=== PATIENT | female | born 1955 | race Two or more races ===

== ENCOUNTER 2018-03-14 16:57 | Inpatient (IN) | payer MEDICARE, MEDICAID ==
[2018-03-14 17:27] LABS: % BASOPHILS 0.8 % (0.0-2.0); % EOSINOPHILS 0.9 % (0.0-5.0); % LYMPHOCYTES 28.5 % (20.0-50.0); % MONOCYTES 8.3 % (2.0-10.0); % NEUTROPHILS 61.5 % (40.0-80.0); BASOPHILE ABSOLUTE 0.1 Th/cumm (0-0.2); EOSINOPHILE ABSOLUTE 0.1 Th/cmm (0.1-0.4); HEMATOCRIT 39.1 % (41.0-60); LYMPHOCYTE ABSOLUTE 2.1 Th/cmm (1.5-3.0); MEAN CORPUSCULAR HEMOGLOBIN 28.9 pg (27.0-31.0); MEAN CORPUSCULAR HGB CONC 33.3 pg (28.0-36.0); MEAN PLATELET VOLUME 7.7 fl; MONOCYTE ABSOLUTE 0.6 Th/cmm (0.3-1.0); NEUTROPHILE ABSOLUTE 4.3 Th/cmm (1.8-8.0); PLATELET COUNT 275 Th/cmm (150-400); RED CELL DISTRIBUTION WIDTH 12.9 % (11.5-20.0); WHITE BLOOD COUNT 7.2 Th/cmm (4.8-10.8)
[2018-03-14 17:46] LABS: ALB/GLOB RATIO 1.5 (1.0-1.8); ALBUMIN 4.4 gm/dL (3.7-5.3); ALKALINE PHOSPHATASE 55 U/L (34-104); ANION GAP 8.9 (7.0-16.0); BILIRUBIN,TOTAL 0.4 mg/dL (0.3-1.0); BUN - UREA NITROGEN 23 mg/dL (7-25); CALCIUM SERUM 9.7 mg/dL (8.6-10.3); CARBON DIOXIDE 28.8 mEq/L (21.0-31.0); CHLORIDE 106 mEq/L (98-107); CREATININE - SERUM 0.7 mg/dL (0.6-1.2); GFR AFRICAN-AMERICAN > 60.0 ml/min (>90); GFR NON AFRICAN-AMERICAN > 60.0 ml/min; GLUCOSE 103 mg/dL (70-105); PHOSPHOROUS 3.4 mg/dL (2.5-5.0); POTASSIUM SERUM 3.7 mEq/L (3.5-5.1); SGOT 12 U/L (13-39); SGPT/ALT 8 U/L (7-52); SODIUM SERUM 140 mEq/L (136-145); TOTAL PROTEIN,SERUM 7.3 gm/dL (6.0-8.3)
--- NOTE | 2018-03-14 18:20 | ED Physician Chart ---
ED Chief Complaint/HPI - Patient Information Date Seen:: 03/14/18 Time Seen:: 17:00 Allergies:: Allergies Allergy/AdvReac Type Severity Reaction Status Date / Time Sulfa (Sulfonamide Allergy Verified 03/14/18 16:59 Antibiotics) Vitals:: Vital Signs - 8 hr 03/14/18 17:00 Temp 99.3 F HR 84 RR 18 BP 125/64 O2 Sat % 94 ED Physical Exam - Physical Examination General/Constitutional: Awake, Well-developed, well-nourished, Non-toxic appearing, Ambulatory Other Gen/Cons comments:: Patient is paranoid. She is tracking the paramedics with her eyes. Head: Atraumatic Eyes: Lids, conjuctiva normal, PERRL, EOMI Skin: Nl inspection, No rash, No skin lesions, No ecchymosis, Well hydrated, No lymphadenopathy ENMT: External ears, nose nl, Nasal exam nl, Lips, teeth, gums nl Neck: Nontender, Full ROM w/o pain, No JVD, No nuchal rigidity, No bruit, No mass, No stridor Respiratory: Nl effort/Exclusion, Clear to Auscultation, No Wheeze/Rhonchi/Rales Cardio Vascular: RRR, No murmur, gallop, rubs, NL S1 S2 GI: No tenderness/rebounding/guarding, No organomegaly, No hernia, Normal BS's, Nondistended, No mass/bruits, No McBurney tenderness Other Extremities comments:: 1+ edema Other Neuro/Psych comments:: Patient appears paranoid. She is tracking paramedics with her eyes. ED Labs/Radiology/EKG Results - Lab Results Results: Laboratory Tests 03/14/18 03/14/18 17:20 17:20 WBC 7.2 RBC 4.50 Hgb 13.0 Hct 39.1 L MCV 87.0 MCH 28.9 MCHC Differential 33.3 RDW 12.9 Plt Count 275 MPV 7.7 Neutrophils % 61.5 Lymphocytes % 28.5 Monocytes % 8.3 Eosinophils % 0.9 Basophils % 0.8 Sodium 140 Potassium 3.7 Chloride 106 Carbon Dioxide 28.8 Anion Gap 8.9 BUN 23 Creatinine 0.7 Est GFR ( Amer) > 60.0 Est GFR (Non-Af Amer) > 60.0 BUN/Creatinine Ratio 32.9 Glucose 103 Calcium 9.7 Phosphorus 3.4 Magnesium 2.0 Total Bilirubin 0.4 AST 12 L ALT 8 Alkaline Phosphatase 55 Total Protein 7.3 Albumin 4.4 Globulin 2.9 Albumin/Globulin Ratio 1.5 ED Septic Shock - . Is Septic Shock (SBP<90, OR Lactate>4 mmol\L) present?: No - <6hrs of presentation: Vital Signs: Vital Signs - 8 hr 03/14/18 17:00 Temp 99.3 F HR 84 RR 18 BP 125/64 O2 Sat % 94 ED Reassessment (Disposition) - Reassessment Reassessment:: PATIENT IS CLEARED FROM A MEDICAL STANDPOINT FOR THIS ADMIT. SHE REFUSES TO GIVE US URINE AND REFUSES TO URINATE FOR US. Reassessment Condition:: Unchanged - Diagnosis Diagnosis:: Paranoid Schizophrenia, Anxiety Disorder, Unspecified Dementia with Behavioral Disturbance, Major Depressive Disorder, single episode.a - Patient Disposition Discharge/Transfer:: Acute Care w/in this hosp (PATIENT IS CLEARED FROM A MEDICAL STANDPOINT FOR THIS ADMIT. SHE REFUSES TO GIVE US URINE AND REFUSES TO URINATE FOR US.) ED Discharge Plan - Patient Disposition
[2018-03-14 22:16] VITALS: BP 137/80
[2018-03-15] MEDS ORDERED: Maalox 30 mL Cup PO PRN (07:19)
[2018-03-15] MEDS: Atorvastatin Calcium 10 MG TAB PO SCH (20:57)
--- NOTE | 2018-03-16 00:05 | Psychosocial Evaluation ---
DATE OF SERVICE: 03/15/2018 JUSTIFICATION FOR HOSPITALIZATION: The patient currently in the hospital, striking out, agitated, disruptive behaviors. HISTORY OF PRESENT ILLNESS: A 62-year-old female, refusing to speak with me apparently aggressive, striking out behaviors, agitated behaviors, not lg for safety. The patient does not want to talk to me, refusing to wake up to be highly labile, concerns for grave disability. Concerns for ability to care for her basic needs. History of schizophrenia per documentation, dementia, resistive to care. PAST PSYCHIATRIC HISTORY: As noted. FAMILY HISTORY: Noncontributory. SOCIAL HISTORY: The patient coming from [facility]. It is unclear what her family involvement is at this time. MEDICATIONS: Noted. MENTAL STATUS EXAMINATION: Stated age. Fair eye contact. Speech, not talking to me, refusing interview, sleeping, but arousable. Mood, unable to assess. Affect, flat. Thought processes are hard to assess. Thought content are hard to assess, concerns for safety given her striking out behaviors, poor impulse control. Insight and judgment seemed diminished. PROVISIONAL DIAGNOSES: Schizophrenia; mood, unspecified; anxiety, unspecified. Under medical, please see full H and P. ESTIMATED LENGTH OF STAY: 5-7 days. ASSESSMENT: The patient requiring hospitalization, aggressive, agitated, history of mental illness. PLAN: Continue medications. Medications were noted. TREATMENT PLAN: Includes group as well as milieu therapy. CONDITIONS FOR DISCHARGE: Improved mood, improved affect, better control . JOB# [id number]
--- NOTE | 2018-03-16 09:53 | History & Physical ---
ADMIT DATE: 03/14/2018 HISTORY OF PRESENT ILLNESS: The patient is a 62-year-old female with dementia, psychosis, and hyperlipidemia ____ admitted to [facility] under Dr. Veras's service. The patient denies any chest pain, shortness of breath, nausea, vomiting, fevers, or chills. PAST MEDICAL HISTORY: Significant for hyperlipidemia, degenerative joint disease, dementia, and psychosis. PAST SURGICAL HISTORY: No recent surgery. ALLERGIES: SULFA. SOCIAL HISTORY: No smoking, no alcohol, and no drug. FAMILY HISTORY: Noncontributory. REVIEW OF SYSTEMS: RENAL SYSTEM: No history of chronic renal disorder. CARDIOVASCULAR SYSTEM: No coronary artery disease. ENDOCRINE SYSTEM: No diabetes or thyroid problem. NEUROLOGIC SYSTEM: No seizure disorder. MUSCULOSKELETAL SYSTEM: No muscular dystrophy. HEMATOLOGIC SYSTEM: No bleeding tendencies. RESPIRATORY SYSTEM: No asthma. GENITOURINARY: No dysuria or hematuria. PHYSICAL EXAMINATION: GENERAL: The patient is awake. VITAL SIGNS: Temperature is 98.6, heart rate 86, and blood pressure 132/80. HEENT: Normocephalic. Pupils reactive to light and accommodation. Sclerae clear. NECK: Supple. Negative for lymphadenopathy, JVD, or bruits. CHEST: Entry of air bilaterally normal. No rhonchi or wheezing. HEART: S1 and S2 normal. ABDOMEN: Soft, bowel sounds positive. EXTREMITIES: No edema. NEUROLOGIC: She is awake, alert, and not fully oriented. LABORATORY DATA: White cell count 7.2, hemoglobin 13, hematocrit 39.1, and platelets 276. Sodium 140, potassium 3.7, BUN 23, and creatinine 0.7. ASSESSMENT: 1. Hyperlipidemia. 2. Degenerative joint disease. 3. Dementia. 4. Psychosis. PLAN: The patient admitted to the hospital under Dr. Veras's service. Her medical problems addressed during hospitalization are dementia and psychosis. Medical problem to be addressed at discharge is degenerative joint disease. The patient is medically stable for activity. Thank you Dr. Veras for asking me to see your patient. JOB# [id number]
--- NOTE | 2018-03-16 16:10 | Internal Medicine Prog Note ---
Internal Medicine Subjective - Subjective Service Date: 03/16/18 Patient seen and examined:: with staff Patient is:: awake, verbal, in bed Per staff patient has:: no adverse event Internal Medicine Objective - Results Result Diagrams: 03/14/18 17:20 03/14/18 17:20 Recent Labs: Laboratory Last Values WBC 7.2 Th/cmm (4.8-10.8) 03/14/18 17:20 RBC 4.50 Mil/cmm (3.80-5.10) 03/14/18 17:20 Hgb 13.0 gm/dL (12-16) 03/14/18 17:20 Hct 39.1 % (41.0-60) L 03/14/18 17:20 MCV 87.0 fl (81-100) 03/14/18 17:20 MCH 28.9 pg (27.0-31.0) 03/14/18 17:20 MCHC Differential 33.3 pg (28.0-36.0) 03/14/18 17:20 RDW 12.9 % (11.5-20.0) 03/14/18 17:20 Plt Count 275 Th/cmm (150-400) 03/14/18 17:20 MPV 7.7 fl 03/14/18 17:20 Neutrophils % 61.5 % (40.0-80.0) 03/14/18 17:20 Lymphocytes % 28.5 % (20.0-50.0) 03/14/18 17:20 Monocytes % 8.3 % (2.0-10.0) 03/14/18 17:20 Eosinophils % 0.9 % (0.0-5.0) 03/14/18 17:20 Basophils % 0.8 % (0.0-2.0) 03/14/18 17:20 Sodium 140 mEq/L (136-145) 03/14/18 17:20 Potassium 3.7 mEq/L (3.5-5.1) 03/14/18 17:20 Chloride 106 mEq/L (98-107) 03/14/18 17:20 Carbon Dioxide 28.8 mEq/L (21.0-31.0) 03/14/18 17:20 Anion Gap 8.9 (7.0-16.0) 03/14/18 17:20 BUN 23 mg/dL (7-25) 03/14/18 17:20 Creatinine 0.7 mg/dL (0.6-1.2) 03/14/18 17:20 Est GFR ( Amer) > 60.0 ml/min (>90) 03/14/18 17:20 Est GFR (Non-Af Amer) > 60.0 ml/min 03/14/18 17:20 BUN/Creatinine Ratio 32.9 03/14/18 17:20 Glucose 103 mg/dL (70-105) 03/14/18 17:20 Calcium 9.7 mg/dL (8.6-10.3) 03/14/18 17:20 Phosphorus 3.4 mg/dL (2.5-5.0) 03/14/18 17:20 Magnesium 2.0 mg/dL (1.9-2.7) 03/14/18 17:20 Total Bilirubin 0.4 mg/dL (0.3-1.0) 03/14/18 17:20 AST 12 U/L (13-39) L 03/14/18 17:20 ALT 8 U/L (7-52) 03/14/18 17:20 Alkaline Phosphatase 55 U/L (34-104) 03/14/18 17:20 Total Protein 7.3 gm/dL (6.0-8.3) 03/14/18 17:20 Albumin 4.4 gm/dL (3.7-5.3) 03/14/18 17:20 Globulin 2.9 gm/dL 03/14/18 17:20 Albumin/Globulin Ratio 1.5 (1.0-1.8) 03/14/18 17:20 TSH 0.64 uIU/ml (0.34-5.60) 03/14/18 17:20 - Physical Exam Vitals and I&O: Vital Signs Temp 97.9 F 03/16/18 15:37 Pulse 72 03/16/18 15:37 Resp 18 03/16/18 15:37 BP 98/65 03/16/18 15:37 Pulse Ox 96 03/16/18 15:37 Intake & Output 03/15/18 03/16/18 03/16/18 18:59 06:59 18:59 Intake Total 650 Balance 650 Intake: Oral 650 Other: # Voids 3 # Bowel Movements 0 Stool Characteristics Soft Soft Active Medications: Current Medications Al Hydrox/Mg Hydrox/Simethicone (Maalox) 30 ml PO Q6H PRN PRN Reason: GI DISTRESS Stop: 05/14/18 07:18 Atorvastatin Calcium (Lipitor) 10 mg PO HS [facility]; Protocol Stop: 05/14/18 20:59 Last Admin: 03/15/18 20:57 Dose: 10 mg Divalproex Sodium (Depakote Dr) 500 mg PO HS [facility]; Protocol Stop: 05/15/18 20:59 Docusate Sodium (Colace) 250 mg PO DAILY [facility] Stop: 05/14/18 08:59 Last Admin: 03/16/18 09:24 Dose: 250 mg Lorazepam (Ativan) 1 mg PO BID [facility]; Protocol Stop: 05/14/18 08:59 Last Admin: 03/16/18 09:24 Dose: 1 mg Olanzapine (Zyprexa) 15 mg PO HS [facility]; Protocol Stop: 05/14/18 20:59 Last Admin: 03/15/18 20:57 Dose: 15 mg Trazodone HCl (Desyrel) 50 mg PO HS [facility]; Protocol Stop: 05/13/18 20:59 Last Admin: 03/15/18 20:57 Dose: 50 mg General: demented HEENT: NC/AT, PERRLA, EOMI, anicteric sclerae, throat clear Neck: Supple, No JVD, No thyromegaly, +2 carotid pulse wo bruit, No LAD Lungs: CTAB Cardiovascular: Normal S1, Normal S2, without murmur Abdomen: soft, non-tender, non-distended Extremities: clear Neurological: no change Internal Medicine Assmt/Plan - Assessment Assessment: 1.HYPERLIPIDEMIA. 2.DJD. 3.DEMENTIA. 4.PSYCHOSIS. - Plan Plan: CONTINUE ON CURRENT MEDICATION AND DIET.
--- NOTE | 2018-03-16 17:15 | Progress Notes ---
DATE: 03/16/2018 SUBJECTIVE: I met with the patient in the hospital, noted to have history of striking out behaviors, aggressive behaviors. On [id number], the patient , does not want to talk to me. She is sleeping. She is arousable, but refusing to speak with me. Poorly oriented per staff, paranoid, internally preoccupied, mostly stays to herself. At times noted to be pleasant towards staff, but other times noted to be angry, verbal outbursts requiring emergency medications, staring into space, seems to be preoccupied by her own thoughts. Medications were noted including doses and frequencies. ASSESSMENT: The patient remains symptomatic, highly impulsive, unpredictable, requiring emergency medications over the past 24 hours given her ongoing symptoms that are ongoing and overt safety concerns. JOB# [id number]
[2018-03-16] MEDS: Atorvastatin Calcium 10 MG TAB PO SCH (20:55)
--- NOTE | 2018-03-17 11:29 | Progress Notes ---
DATE: 03/17/2018 SUBJECTIVE: The patient in the hospital, resting quietly. Staff noting she is selectively mute, also selective with medications. Notes that she takes medications as she gets cigarettes. The patient with sudden outbursts of anger, irritability, unpredictable, impulsive, refusing to speak with me, not saying anything. She is awake. Her eyes are open, but she is refusing to talk with me. Staff noting other times she is very pleasant. The patient sometimes requiring emergency medications due to anxiety, high impulsivity, easily provoked. ASSESSMENT: The patient remains symptomatic, refusing to speak with me, selective with medications, conditional with medications and treatment based on how much she can smoke. PLAN: We will continue to monitor. Given her ongoing symptoms, she is not safe for discharge. Still with acting out behaviors, unruly behaviors. JOB# [id number]
--- NOTE | 2018-03-17 18:06 | Internal Medicine Prog Note ---
Internal Medicine Subjective - Subjective Service Date: 03/17/18 Patient seen and examined:: with staff Patient is:: awake, verbal, in bed Per staff patient has:: no adverse event Internal Medicine Objective - Results Result Diagrams: 03/14/18 17:20 03/14/18 17:20 Recent Labs: Laboratory Last Values WBC 7.2 Th/cmm (4.8-10.8) 03/14/18 17:20 RBC 4.50 Mil/cmm (3.80-5.10) 03/14/18 17:20 Hgb 13.0 gm/dL (12-16) 03/14/18 17:20 Hct 39.1 % (41.0-60) L 03/14/18 17:20 MCV 87.0 fl (81-100) 03/14/18 17:20 MCH 28.9 pg (27.0-31.0) 03/14/18 17:20 MCHC Differential 33.3 pg (28.0-36.0) 03/14/18 17:20 RDW 12.9 % (11.5-20.0) 03/14/18 17:20 Plt Count 275 Th/cmm (150-400) 03/14/18 17:20 MPV 7.7 fl 03/14/18 17:20 Neutrophils % 61.5 % (40.0-80.0) 03/14/18 17:20 Lymphocytes % 28.5 % (20.0-50.0) 03/14/18 17:20 Monocytes % 8.3 % (2.0-10.0) 03/14/18 17:20 Eosinophils % 0.9 % (0.0-5.0) 03/14/18 17:20 Basophils % 0.8 % (0.0-2.0) 03/14/18 17:20 Sodium 140 mEq/L (136-145) 03/14/18 17:20 Potassium 3.7 mEq/L (3.5-5.1) 03/14/18 17:20 Chloride 106 mEq/L (98-107) 03/14/18 17:20 Carbon Dioxide 28.8 mEq/L (21.0-31.0) 03/14/18 17:20 Anion Gap 8.9 (7.0-16.0) 03/14/18 17:20 BUN 23 mg/dL (7-25) 03/14/18 17:20 Creatinine 0.7 mg/dL (0.6-1.2) 03/14/18 17:20 Est GFR ( Amer) > 60.0 ml/min (>90) 03/14/18 17:20 Est GFR (Non-Af Amer) > 60.0 ml/min 03/14/18 17:20 BUN/Creatinine Ratio 32.9 03/14/18 17:20 Glucose 103 mg/dL (70-105) 03/14/18 17:20 Calcium 9.7 mg/dL (8.6-10.3) 03/14/18 17:20 Phosphorus 3.4 mg/dL (2.5-5.0) 03/14/18 17:20 Magnesium 2.0 mg/dL (1.9-2.7) 03/14/18 17:20 Total Bilirubin 0.4 mg/dL (0.3-1.0) 03/14/18 17:20 AST 12 U/L (13-39) L 03/14/18 17:20 ALT 8 U/L (7-52) 03/14/18 17:20 Alkaline Phosphatase 55 U/L (34-104) 03/14/18 17:20 Total Protein 7.3 gm/dL (6.0-8.3) 03/14/18 17:20 Albumin 4.4 gm/dL (3.7-5.3) 03/14/18 17:20 Globulin 2.9 gm/dL 03/14/18 17:20 Albumin/Globulin Ratio 1.5 (1.0-1.8) 03/14/18 17:20 TSH 0.64 uIU/ml (0.34-5.60) 03/14/18 17:20 - Physical Exam Vitals and I&O: Vital Signs Temp 97.8 F 03/17/18 15:46 Pulse 67 03/17/18 15:46 Resp 18 03/17/18 15:46 BP 103/63 03/17/18 15:46 Pulse Ox 97 03/17/18 15:46 Intake & Output 03/16/18 03/17/18 03/17/18 18:59 06:59 18:59 Intake Total 600 300 Balance 600 300 Intake: Oral 600 300 Other: # Voids 2 0 # Bowel Movements 0 Stool Characteristics Soft Soft Soft Active Medications: Current Medications Al Hydrox/Mg Hydrox/Simethicone (Maalox) 30 ml PO Q6H PRN PRN Reason: GI DISTRESS Stop: 05/14/18 07:18 Atorvastatin Calcium (Lipitor) 10 mg PO HS [facility]; Protocol Stop: 05/14/18 20:59 Last Admin: 03/16/18 20:55 Dose: Not Given Divalproex Sodium (Depakote Dr) 500 mg PO HS [facility]; Protocol Stop: 05/15/18 20:59 Last Admin: 03/16/18 20:52 Dose: Not Given Docusate Sodium (Colace) 250 mg PO DAILY [facility] Stop: 05/14/18 08:59 Last Admin: 03/17/18 10:56 Dose: Not Given Lorazepam (Ativan) 1 mg PO BID [facility]; Protocol Stop: 05/14/18 08:59 Last Admin: 03/17/18 10:56 Dose: Not Given Olanzapine (Zyprexa) 15 mg PO HS [facility]; Protocol Stop: 05/14/18 20:59 Last Admin: 03/16/18 20:51 Dose: Not Given Trazodone HCl (Desyrel) 50 mg PO HS [facility]; Protocol Stop: 05/13/18 20:59 Last Admin: 03/16/18 20:51 Dose: 50 mg General: demented HEENT: NC/AT, PERRLA, EOMI, anicteric sclerae, throat clear Neck: Supple, No JVD, No thyromegaly, +2 carotid pulse wo bruit, No LAD Lungs: CTAB Cardiovascular: Normal S1, Normal S2, without murmur Abdomen: soft, non-tender, non-distended Extremities: clear Neurological: no change Internal Medicine Assmt/Plan - Assessment Assessment: 1.HYPERLIPIDEMIA. 2.DJD. 3.DEMENTIA. 4.PSYCHOSIS. - Plan Plan: CONTINUE ON CURRENT MEDICATION AND DIET.
[2018-03-17] MEDS: Atorvastatin Calcium 10 MG TAB PO SCH (21:05)
--- NOTE | 2018-03-17 22:09 | Progress Notes ---
DATE: 03/17/2018 FOLLOW-UP PROGRESS NOTE Actually, this patient was seen earlier today by Dr. Hammond; however, the staff asked me to evaluate her because her hold will today. When I tried to talk to her, she was nonverbal, she was in bed, disruptive, is extremely psychotic. Apparently, she does take her medication she gets. She apparently also refused to talk with Dr. Hammond earlier today. She is highly unpredictable, impulsive, irritable, refusing to talk as described. When I talked to her with the staff, she was very much resistant to answer any questions. The staff reported sometimes she has been much more easy to talk to and she has been needing emergency medication. So, I will be extending the hold on the ground of grave disability as she is unable to make safe plans for self-care. Dr. Hammond will continue to work with the patient in group therapy and milieu therapy, adjust the medication as needed. JOB# [id number]
[2018-03-18] MEDS: Atorvastatin Calcium 10 MG TAB PO SCH (21:25)
--- NOTE | 2018-03-18 21:26 | Internal Medicine Prog Note ---
Internal Medicine Subjective - Subjective Service Date: 03/18/18 Patient seen and examined:: with staff Patient is:: awake, verbal, in bed Per staff patient has:: no adverse event Internal Medicine Objective - Results Result Diagrams: 03/14/18 17:20 03/14/18 17:20 Recent Labs: Laboratory Last Values WBC 7.2 Th/cmm (4.8-10.8) 03/14/18 17:20 RBC 4.50 Mil/cmm (3.80-5.10) 03/14/18 17:20 Hgb 13.0 gm/dL (12-16) 03/14/18 17:20 Hct 39.1 % (41.0-60) L 03/14/18 17:20 MCV 87.0 fl (81-100) 03/14/18 17:20 MCH 28.9 pg (27.0-31.0) 03/14/18 17:20 MCHC Differential 33.3 pg (28.0-36.0) 03/14/18 17:20 RDW 12.9 % (11.5-20.0) 03/14/18 17:20 Plt Count 275 Th/cmm (150-400) 03/14/18 17:20 MPV 7.7 fl 03/14/18 17:20 Neutrophils % 61.5 % (40.0-80.0) 03/14/18 17:20 Lymphocytes % 28.5 % (20.0-50.0) 03/14/18 17:20 Monocytes % 8.3 % (2.0-10.0) 03/14/18 17:20 Eosinophils % 0.9 % (0.0-5.0) 03/14/18 17:20 Basophils % 0.8 % (0.0-2.0) 03/14/18 17:20 Sodium 140 mEq/L (136-145) 03/14/18 17:20 Potassium 3.7 mEq/L (3.5-5.1) 03/14/18 17:20 Chloride 106 mEq/L (98-107) 03/14/18 17:20 Carbon Dioxide 28.8 mEq/L (21.0-31.0) 03/14/18 17:20 Anion Gap 8.9 (7.0-16.0) 03/14/18 17:20 BUN 23 mg/dL (7-25) 03/14/18 17:20 Creatinine 0.7 mg/dL (0.6-1.2) 03/14/18 17:20 Est GFR ( Amer) > 60.0 ml/min (>90) 03/14/18 17:20 Est GFR (Non-Af Amer) > 60.0 ml/min 03/14/18 17:20 BUN/Creatinine Ratio 32.9 03/14/18 17:20 Glucose 103 mg/dL (70-105) 03/14/18 17:20 Calcium 9.7 mg/dL (8.6-10.3) 03/14/18 17:20 Phosphorus 3.4 mg/dL (2.5-5.0) 03/14/18 17:20 Magnesium 2.0 mg/dL (1.9-2.7) 03/14/18 17:20 Total Bilirubin 0.4 mg/dL (0.3-1.0) 03/14/18 17:20 AST 12 U/L (13-39) L 03/14/18 17:20 ALT 8 U/L (7-52) 03/14/18 17:20 Alkaline Phosphatase 55 U/L (34-104) 03/14/18 17:20 Total Protein 7.3 gm/dL (6.0-8.3) 03/14/18 17:20 Albumin 4.4 gm/dL (3.7-5.3) 03/14/18 17:20 Globulin 2.9 gm/dL 03/14/18 17:20 Albumin/Globulin Ratio 1.5 (1.0-1.8) 03/14/18 17:20 TSH 0.64 uIU/ml (0.34-5.60) 03/14/18 17:20 - Physical Exam Vitals and I&O: Vital Signs Temp 97.6 F 03/18/18 14:00 Pulse 62 03/18/18 14:00 Resp 20 03/18/18 14:00 BP 111/69 03/18/18 14:00 Pulse Ox 97 03/18/18 14:00 Intake & Output 03/18/18 03/18/18 03/19/18 06:59 18:59 06:59 Intake Total 120 Balance 120 Intake: Oral 120 Other: # Voids 1 # Bowel Movements 0 Stool Characteristics Soft Soft Active Medications: Current Medications Al Hydrox/Mg Hydrox/Simethicone (Maalox) 30 ml PO Q6H PRN PRN Reason: GI DISTRESS Stop: 05/14/18 07:18 Atorvastatin Calcium (Lipitor) 10 mg PO HS [facility]; Protocol Stop: 05/14/18 20:59 Last Admin: 03/17/18 21:05 Dose: 10 mg Divalproex Sodium (Depakote Dr) 500 mg PO HS [facility]; Protocol Stop: 05/15/18 20:59 Last Admin: 03/17/18 21:05 Dose: 500 mg Docusate Sodium (Colace) 250 mg PO DAILY [facility] Stop: 05/14/18 08:59 Last Admin: 03/18/18 09:30 Dose: Not Given Lorazepam (Ativan) 1 mg PO BID [facility]; Protocol Stop: 05/14/18 08:59 Last Admin: 03/18/18 17:11 Dose: Not Given Olanzapine (Zyprexa) 15 mg PO HS [facility]; Protocol Stop: 05/14/18 20:59 Last Admin: 03/17/18 21:05 Dose: 15 mg Trazodone HCl (Desyrel) 50 mg PO HS [facility]; Protocol Stop: 05/13/18 20:59 Last Admin: 03/17/18 21:05 Dose: 50 mg General: demented HEENT: NC/AT, PERRLA, EOMI, anicteric sclerae, throat clear Neck: Supple, No JVD, No thyromegaly, +2 carotid pulse wo bruit, No LAD Lungs: CTAB Cardiovascular: Normal S1, Normal S2, without murmur Abdomen: soft, non-tender, non-distended Extremities: clear Neurological: no change Internal Medicine Assmt/Plan - Assessment Assessment: 1.HYPERLIPIDEMIA. 2.DJD. 3.DEMENTIA. 4.PSYCHOSIS. - Plan Plan: CONTINUE ON CURRENT MEDICATION AND DIET.
--- NOTE | 2018-03-18 22:39 | Progress Notes ---
DATE: 03/18/2018 SUBJECTIVE: Case was discussed with staff of the patient. The patient continues to stay in bed, not responding to question, nonverbal, selectively mute. She takes her medication with some staff, but not others. Continues to have poor insight, labile, irritable, unpredictable, resistant to care, and needing emergency medication. Continues to have poor insight, unable to make safe plan for self-care. No side effects with the medication, no sedation, no nausea, and no extrapyramidal symptoms. She is on Depakote 500 mg at bedtime, olanzapine 15 mg at bedtime, trazodone 50 mg at bedtime, and atorvastatin 10 mg at bedtime. We will continue to work with the patient in group therapy, milieu therapy, and adjust the medications as needed. JOB# [id number]
--- NOTE | 2018-03-19 20:26 | Internal Medicine Prog Note ---
Internal Medicine Subjective - Subjective Service Date: 03/19/18 Patient seen and examined:: with staff Patient is:: awake, verbal, in bed Per staff patient has:: no adverse event Internal Medicine Objective - Results Result Diagrams: 03/14/18 17:20 03/14/18 17:20 Recent Labs: Laboratory Last Values WBC 7.2 Th/cmm (4.8-10.8) 03/14/18 17:20 RBC 4.50 Mil/cmm (3.80-5.10) 03/14/18 17:20 Hgb 13.0 gm/dL (12-16) 03/14/18 17:20 Hct 39.1 % (41.0-60) L 03/14/18 17:20 MCV 87.0 fl (81-100) 03/14/18 17:20 MCH 28.9 pg (27.0-31.0) 03/14/18 17:20 MCHC Differential 33.3 pg (28.0-36.0) 03/14/18 17:20 RDW 12.9 % (11.5-20.0) 03/14/18 17:20 Plt Count 275 Th/cmm (150-400) 03/14/18 17:20 MPV 7.7 fl 03/14/18 17:20 Neutrophils % 61.5 % (40.0-80.0) 03/14/18 17:20 Lymphocytes % 28.5 % (20.0-50.0) 03/14/18 17:20 Monocytes % 8.3 % (2.0-10.0) 03/14/18 17:20 Eosinophils % 0.9 % (0.0-5.0) 03/14/18 17:20 Basophils % 0.8 % (0.0-2.0) 03/14/18 17:20 Sodium 140 mEq/L (136-145) 03/14/18 17:20 Potassium 3.7 mEq/L (3.5-5.1) 03/14/18 17:20 Chloride 106 mEq/L (98-107) 03/14/18 17:20 Carbon Dioxide 28.8 mEq/L (21.0-31.0) 03/14/18 17:20 Anion Gap 8.9 (7.0-16.0) 03/14/18 17:20 BUN 23 mg/dL (7-25) 03/14/18 17:20 Creatinine 0.7 mg/dL (0.6-1.2) 03/14/18 17:20 Est GFR ( Amer) > 60.0 ml/min (>90) 03/14/18 17:20 Est GFR (Non-Af Amer) > 60.0 ml/min 03/14/18 17:20 BUN/Creatinine Ratio 32.9 03/14/18 17:20 Glucose 103 mg/dL (70-105) 03/14/18 17:20 Calcium 9.7 mg/dL (8.6-10.3) 03/14/18 17:20 Phosphorus 3.4 mg/dL (2.5-5.0) 03/14/18 17:20 Magnesium 2.0 mg/dL (1.9-2.7) 03/14/18 17:20 Total Bilirubin 0.4 mg/dL (0.3-1.0) 03/14/18 17:20 AST 12 U/L (13-39) L 03/14/18 17:20 ALT 8 U/L (7-52) 03/14/18 17:20 Alkaline Phosphatase 55 U/L (34-104) 03/14/18 17:20 Total Protein 7.3 gm/dL (6.0-8.3) 03/14/18 17:20 Albumin 4.4 gm/dL (3.7-5.3) 03/14/18 17:20 Globulin 2.9 gm/dL 03/14/18 17:20 Albumin/Globulin Ratio 1.5 (1.0-1.8) 03/14/18 17:20 TSH 0.64 uIU/ml (0.34-5.60) 03/14/18 17:20 - Physical Exam Vitals and I&O: Vital Signs Temp 98.4 F 03/19/18 06:15 Pulse 82 03/19/18 06:15 Resp 20 03/19/18 06:15 BP 113/71 03/19/18 06:15 Pulse Ox 99 03/19/18 06:15 Intake & Output 03/19/18 03/19/18 03/20/18 06:59 18:59 06:59 Intake Total 120 650 Balance 120 650 Intake: Oral 120 650 Other: # Voids 1 # Bowel Movements 0 Stool Characteristics Soft Soft Active Medications: Current Medications Al Hydrox/Mg Hydrox/Simethicone (Maalox) 30 ml PO Q6H PRN PRN Reason: GI DISTRESS Stop: 05/14/18 07:18 Atorvastatin Calcium (Lipitor) 10 mg PO HS [facility]; Protocol Stop: 05/14/18 20:59 Last Admin: 03/18/18 21:25 Dose: Not Given Divalproex Sodium (Depakote Dr) 500 mg PO HS [facility]; Protocol Stop: 05/15/18 20:59 Last Admin: 03/18/18 21:25 Dose: Not Given Docusate Sodium (Colace) 250 mg PO DAILY [facility] Stop: 05/14/18 08:59 Last Admin: 03/19/18 08:43 Dose: Not Given Lorazepam (Ativan) 1 mg PO BID [facility]; Protocol Stop: 05/14/18 08:59 Last Admin: 03/19/18 16:57 Dose: Not Given Olanzapine (Zyprexa) 15 mg PO HS [facility]; Protocol Stop: 05/14/18 20:59 Last Admin: 03/18/18 21:25 Dose: Not Given Trazodone HCl (Desyrel) 50 mg PO HS [facility]; Protocol Stop: 05/13/18 20:59 Last Admin: 03/18/18 21:25 Dose: Not Given General: demented HEENT: NC/AT, PERRLA, EOMI, anicteric sclerae, throat clear Neck: Supple, No JVD, No thyromegaly, +2 carotid pulse wo bruit, No LAD Lungs: CTAB Cardiovascular: Normal S1, Normal S2, without murmur Abdomen: soft, non-tender, non-distended Extremities: clear Neurological: no change Internal Medicine Assmt/Plan - Assessment Assessment: 1.HYPERLIPIDEMIA. 2.DJD. 3.DEMENTIA. 4.PSYCHOSIS. - Plan Plan: CONTINUE ON CURRENT MEDICATION AND DIET.
[2018-03-19] MEDS: Atorvastatin Calcium 10 MG TAB PO SCH (21:17)
--- NOTE | 2018-03-20 16:57 | Progress Notes ---
DATE: 03/19/2018 SUBJECTIVE: Chart reviewed and the patient interviewed. Also discussed the patient's condition with the staff and reviewed records and labs. The patient continued to be confused and uncooperative. The patient also has still unpredictable behavior and she is still refusing to take medications and she is still resisting care. She also needs lots of redirections. Otherwise, the patient seems to be slightly easier to redirect her. ASSESSMENT: The patient is still confused and agitated. TREATMENT PLAN: Advised the patient to take her psychotropic medications. Also the patient to continue to work up on her irritability and poor impulse control and we will continue to follow up closely. JOB# [id number]
[2018-03-20] MEDS: Atorvastatin Calcium 10 MG TAB PO SCH (21:10)
--- NOTE | 2018-03-20 23:15 | Internal Medicine Prog Note ---
Internal Medicine Subjective - Subjective Service Date: 03/20/18 Patient seen and examined:: with staff Patient is:: awake, verbal, in bed Per staff patient has:: no adverse event Internal Medicine Objective - Results Result Diagrams: 03/14/18 17:20 03/14/18 17:20 Recent Labs: Laboratory Last Values WBC 7.2 Th/cmm (4.8-10.8) 03/14/18 17:20 RBC 4.50 Mil/cmm (3.80-5.10) 03/14/18 17:20 Hgb 13.0 gm/dL (12-16) 03/14/18 17:20 Hct 39.1 % (41.0-60) L 03/14/18 17:20 MCV 87.0 fl (81-100) 03/14/18 17:20 MCH 28.9 pg (27.0-31.0) 03/14/18 17:20 MCHC Differential 33.3 pg (28.0-36.0) 03/14/18 17:20 RDW 12.9 % (11.5-20.0) 03/14/18 17:20 Plt Count 275 Th/cmm (150-400) 03/14/18 17:20 MPV 7.7 fl 03/14/18 17:20 Neutrophils % 61.5 % (40.0-80.0) 03/14/18 17:20 Lymphocytes % 28.5 % (20.0-50.0) 03/14/18 17:20 Monocytes % 8.3 % (2.0-10.0) 03/14/18 17:20 Eosinophils % 0.9 % (0.0-5.0) 03/14/18 17:20 Basophils % 0.8 % (0.0-2.0) 03/14/18 17:20 Sodium 140 mEq/L (136-145) 03/14/18 17:20 Potassium 3.7 mEq/L (3.5-5.1) 03/14/18 17:20 Chloride 106 mEq/L (98-107) 03/14/18 17:20 Carbon Dioxide 28.8 mEq/L (21.0-31.0) 03/14/18 17:20 Anion Gap 8.9 (7.0-16.0) 03/14/18 17:20 BUN 23 mg/dL (7-25) 03/14/18 17:20 Creatinine 0.7 mg/dL (0.6-1.2) 03/14/18 17:20 Est GFR ( Amer) > 60.0 ml/min (>90) 03/14/18 17:20 Est GFR (Non-Af Amer) > 60.0 ml/min 03/14/18 17:20 BUN/Creatinine Ratio 32.9 03/14/18 17:20 Glucose 103 mg/dL (70-105) 03/14/18 17:20 Calcium 9.7 mg/dL (8.6-10.3) 03/14/18 17:20 Phosphorus 3.4 mg/dL (2.5-5.0) 03/14/18 17:20 Magnesium 2.0 mg/dL (1.9-2.7) 03/14/18 17:20 Total Bilirubin 0.4 mg/dL (0.3-1.0) 03/14/18 17:20 AST 12 U/L (13-39) L 03/14/18 17:20 ALT 8 U/L (7-52) 03/14/18 17:20 Alkaline Phosphatase 55 U/L (34-104) 03/14/18 17:20 Total Protein 7.3 gm/dL (6.0-8.3) 03/14/18 17:20 Albumin 4.4 gm/dL (3.7-5.3) 03/14/18 17:20 Globulin 2.9 gm/dL 03/14/18 17:20 Albumin/Globulin Ratio 1.5 (1.0-1.8) 03/14/18 17:20 TSH 0.64 uIU/ml (0.34-5.60) 03/14/18 17:20 - Physical Exam Vitals and I&O: Vital Signs Temp 97.8 F 03/20/18 14:00 Pulse 76 03/20/18 14:00 Resp 20 03/20/18 14:00 BP 102/64 03/20/18 14:00 Pulse Ox 97 03/20/18 14:00 Intake & Output 03/20/18 03/20/18 03/21/18 06:59 18:59 06:59 Intake Total 100 Balance 100 Intake: Oral 100 Other: Stool Characteristics Soft Soft Soft Active Medications: Current Medications Al Hydrox/Mg Hydrox/Simethicone (Maalox) 30 ml PO Q6H PRN PRN Reason: GI DISTRESS Stop: 05/14/18 07:18 Atorvastatin Calcium (Lipitor) 10 mg PO HS [facility]; Protocol Stop: 05/14/18 20:59 Last Admin: 03/20/18 21:10 Dose: Not Given Divalproex Sodium (Depakote Dr) 500 mg PO HS [facility]; Protocol Stop: 05/15/18 20:59 Last Admin: 03/20/18 21:10 Dose: Not Given Docusate Sodium (Colace) 250 mg PO DAILY [facility] Stop: 05/14/18 08:59 Last Admin: 03/20/18 08:00 Dose: Not Given Lorazepam (Ativan) 1 mg PO BID [facility]; Protocol Stop: 05/14/18 08:59 Last Admin: 03/20/18 16:45 Dose: Not Given Olanzapine (Zyprexa) 15 mg PO HS [facility]; Protocol Stop: 05/14/18 20:59 Last Admin: 03/20/18 21:10 Dose: Not Given Trazodone HCl (Desyrel) 50 mg PO HS [facility]; Protocol Stop: 05/13/18 20:59 Last Admin: 03/20/18 21:10 Dose: Not Given General: demented HEENT: NC/AT, PERRLA, EOMI, anicteric sclerae, throat clear Neck: Supple, No JVD, No thyromegaly, +2 carotid pulse wo bruit, No LAD Lungs: CTAB Cardiovascular: Normal S1, Normal S2, without murmur Abdomen: soft, non-tender, non-distended Extremities: clear Neurological: no change Internal Medicine Assmt/Plan - Assessment Assessment: 1.HYPERLIPIDEMIA. 2.DJD. 3.DEMENTIA. 4.PSYCHOSIS. - Plan Plan: CONTINUE ON CURRENT MEDICATION AND DIET. Nutritional Asmnt/Malnutr-PDOC - Dietary Evaluation Malnutrition Findings (Please click <Entered> for more info): Nutritional Asmnt/Malnutrition Start: 03/20/18 15: 29 Text: Status: Complete Freq: Protocol: Document 03/20/18 15:29 TRENTG (Rec: 03/20/18 15:41 [email or web address]) Nutritional Asmnt/Malnutrition Patient General Information Nutritional Screening Low Risk Diagnosis psychosis Pertinent Medical Hx/Surgical Hx hyperlipidemia, DJD, dementia, psychosis Subjective Information Pt seen sleeping in bed at time of visit. Spoke with nurse, pt has been refusing food and medications, not communicating with staff. Per EMR, PO intake 0% x 6 meals on 03/15 and 03/16, 25% of lunch and 50% of dinner on 03/19. Current Diet Order/ Nutrition Support regular Pertinent Medications colace, lipitor Pertinent Labs 03/14 nutrition related labs WNL Nutritional Hx/Data Height 1.65 m Height (Calculated Centimeters) 165.1 Current Weight (lbs) 70.307 kg Weight (Calculated Kilograms) 70.3 Weight (Calculated Grams) 09840.8 [place] Body Weight 125 Body Mass Index (BMI) 25.7 Weight Status Overweight GI Symptoms GI Symptoms None Last BM none Difficult in: None Skin Integrity/Comment: intact Current %PO Negligible < 25% Estimated Nutritional Goals BEE in Kcals: Using Current wt Calories/Kcals/Kg 23-27 Kcals Calculated 2696-8875 Protein: Using Current wt Protein g/k.8-1 Protein Calculated 56-70 Fluid: ml 1610-1890ml (1ml/kcal) Nutritional Problem No current Nutrition Prob Problem inadequate food intake Etiology possible poor appetite, confusion Signs/Symptoms: PO intake <25% Malnutrition Alert Is there a minimum of two criteria No selected? Query Text:Check all the applicable criteria. A minimum of two criteria are recommended for diagnosis of either severe or non-severe malnutrition. Malnutrition Related to Morbid Obesity Malnutrition related to morbid obesity No Intervention/Recommendation Comments 1. Continue with regular diet as ordered. MD to consider appetite stimulant. Encourage oral intake. 2. Monitor PO intake, wt, labs and skin integrity 3. F/U as high risk in 2-3 days, 03/22-03/23 Expected Outcomes/Goals Expected Outcomes/Goals 1. PO intake to meet at least 75% of nutritional needs. 2. Wt stability, skin to remain intact, labs to approach WNL.
--- NOTE | 2018-03-21 01:26 | Progress Notes ---
DATE: 03/20/2018 PSYCHIATRIC PROGRESS NOTE: Chart reviewed and the patient interviewed. Also discussed the patient's condition with the staff and reviewed records and labs. The patient is uncooperative as she is still in a depressed mood. The patient also is still suspicious and seems to be paranoid and guarded. She wants to be left alone. The patient also is interacting minimally with others. Otherwise, the patient still needs redirection and slightly easier to redirect her. ASSESSMENT: The patient is still agitated and psychotic. TREATMENT PLAN: Continue to monitor her behavior and her condition closely. Also, continue to work on her anger and her ineffective coping and also working on her noncompliance with medications since she is still refusing to take medications. [facility]# [id number]
--- NOTE | 2018-03-21 19:06 | Internal Medicine Prog Note ---
Internal Medicine Subjective - Subjective Service Date: 03/21/18 Patient seen and examined:: with staff Patient is:: awake, verbal, in bed Per staff patient has:: no adverse event Internal Medicine Objective - Results Result Diagrams: 03/14/18 17:20 03/14/18 17:20 Recent Labs: Laboratory Last Values WBC 7.2 Th/cmm (4.8-10.8) 03/14/18 17:20 RBC 4.50 Mil/cmm (3.80-5.10) 03/14/18 17:20 Hgb 13.0 gm/dL (12-16) 03/14/18 17:20 Hct 39.1 % (41.0-60) L 03/14/18 17:20 MCV 87.0 fl (81-100) 03/14/18 17:20 MCH 28.9 pg (27.0-31.0) 03/14/18 17:20 MCHC Differential 33.3 pg (28.0-36.0) 03/14/18 17:20 RDW 12.9 % (11.5-20.0) 03/14/18 17:20 Plt Count 275 Th/cmm (150-400) 03/14/18 17:20 MPV 7.7 fl 03/14/18 17:20 Neutrophils % 61.5 % (40.0-80.0) 03/14/18 17:20 Lymphocytes % 28.5 % (20.0-50.0) 03/14/18 17:20 Monocytes % 8.3 % (2.0-10.0) 03/14/18 17:20 Eosinophils % 0.9 % (0.0-5.0) 03/14/18 17:20 Basophils % 0.8 % (0.0-2.0) 03/14/18 17:20 Sodium 140 mEq/L (136-145) 03/14/18 17:20 Potassium 3.7 mEq/L (3.5-5.1) 03/14/18 17:20 Chloride 106 mEq/L (98-107) 03/14/18 17:20 Carbon Dioxide 28.8 mEq/L (21.0-31.0) 03/14/18 17:20 Anion Gap 8.9 (7.0-16.0) 03/14/18 17:20 BUN 23 mg/dL (7-25) 03/14/18 17:20 Creatinine 0.7 mg/dL (0.6-1.2) 03/14/18 17:20 Est GFR ( Amer) > 60.0 ml/min (>90) 03/14/18 17:20 Est GFR (Non-Af Amer) > 60.0 ml/min 03/14/18 17:20 BUN/Creatinine Ratio 32.9 03/14/18 17:20 Glucose 103 mg/dL (70-105) 03/14/18 17:20 Calcium 9.7 mg/dL (8.6-10.3) 03/14/18 17:20 Phosphorus 3.4 mg/dL (2.5-5.0) 03/14/18 17:20 Magnesium 2.0 mg/dL (1.9-2.7) 03/14/18 17:20 Total Bilirubin 0.4 mg/dL (0.3-1.0) 03/14/18 17:20 AST 12 U/L (13-39) L 03/14/18 17:20 ALT 8 U/L (7-52) 03/14/18 17:20 Alkaline Phosphatase 55 U/L (34-104) 03/14/18 17:20 Total Protein 7.3 gm/dL (6.0-8.3) 03/14/18 17:20 Albumin 4.4 gm/dL (3.7-5.3) 03/14/18 17:20 Globulin 2.9 gm/dL 03/14/18 17:20 Albumin/Globulin Ratio 1.5 (1.0-1.8) 03/14/18 17:20 TSH 0.64 uIU/ml (0.34-5.60) 03/14/18 17:20 - Physical Exam Vitals and I&O: Vital Signs Temp 97.2 F 03/21/18 15:46 Pulse 72 03/21/18 15:46 Resp 20 03/21/18 15:46 BP 119/74 03/21/18 15:46 Pulse Ox 96 03/21/18 15:46 Intake & Output 03/21/18 03/21/18 03/22/18 06:59 18:59 06:59 Intake Total 200 Balance 200 Intake: Oral 200 Other: # Voids 1 Stool Characteristics Soft Soft Active Medications: Current Medications Al Hydrox/Mg Hydrox/Simethicone (Maalox) 30 ml PO Q6H PRN PRN Reason: GI DISTRESS Stop: 05/14/18 07:18 Atorvastatin Calcium (Lipitor) 10 mg PO HS [facility]; Protocol Stop: 05/14/18 20:59 Last Admin: 03/20/18 21:10 Dose: Not Given Divalproex Sodium (Depakote Dr) 500 mg PO HS [facility]; Protocol Stop: 05/15/18 20:59 Last Admin: 03/20/18 21:10 Dose: Not Given Docusate Sodium (Colace) 250 mg PO DAILY [facility] Stop: 05/14/18 08:59 Last Admin: 03/21/18 08:26 Dose: Not Given Lorazepam (Ativan) 1 mg PO BID [facility]; Protocol Stop: 05/14/18 08:59 Last Admin: 03/21/18 16:03 Dose: Not Given Olanzapine (Zyprexa) 15 mg PO HS [facility]; Protocol Stop: 05/14/18 20:59 Last Admin: 03/20/18 21:10 Dose: Not Given Trazodone HCl (Desyrel) 50 mg PO HS [facility]; Protocol Stop: 05/13/18 20:59 Last Admin: 03/20/18 21:10 Dose: Not Given General: demented HEENT: NC/AT, PERRLA, EOMI, anicteric sclerae, throat clear Neck: Supple, No JVD, No thyromegaly, +2 carotid pulse wo bruit, No LAD Lungs: CTAB Cardiovascular: Normal S1, Normal S2, without murmur Abdomen: soft, non-tender, non-distended Extremities: clear Neurological: no change Internal Medicine Assmt/Plan - Assessment Assessment: 1.HYPERLIPIDEMIA. 2.DJD. 3.DEMENTIA. 4.PSYCHOSIS. - Plan Plan: CONTINUE ON CURRENT MEDICATION AND DIET. Nutritional Asmnt/Malnutr-PDOC - Dietary Evaluation Malnutrition Findings (Please click <Entered> for more info): Nutritional Asmnt/Malnutrition Start: 03/20/18 15: 29 Text: Status: Complete Freq: Protocol: Document 03/20/18 15:29 RAUL (Rec: 03/20/18 15:41 [email or web address]) Nutritional Asmnt/Malnutrition Patient General Information Nutritional Screening Low Risk Diagnosis psychosis Pertinent Medical Hx/Surgical Hx hyperlipidemia, DJD, dementia, psychosis Subjective Information Pt seen sleeping in bed at time of visit. Spoke with nurse, pt has been refusing food and medications, not communicating with staff. Per EMR, PO intake 0% x 6 meals on 03/15 and 03/16, 25% of lunch and 50% of dinner on 03/19. Current Diet Order/ Nutrition Support regular Pertinent Medications colace, lipitor Pertinent Labs 03/14 nutrition related labs WNL Nutritional Hx/Data Height 1.65 m Height (Calculated Centimeters) 165.1 Current Weight (lbs) 70.307 kg Weight (Calculated Kilograms) 70.3 Weight (Calculated Grams) 47967.8 [place] Body Weight 125 Body Mass Index (BMI) 25.7 Weight Status Overweight GI Symptoms GI Symptoms None Last BM none Difficult in: None Skin Integrity/Comment: intact Current %PO Negligible < 25% Estimated Nutritional Goals BEE in Kcals: Using Current wt Calories/Kcals/Kg 23-27 Kcals Calculated 1695-9881 Protein: Using Current wt Protein g/k.8-1 Protein Calculated 56-70 Fluid: ml 1610-1890ml (1ml/kcal) Nutritional Problem No current Nutrition Prob Problem inadequate food intake Etiology possible poor appetite, confusion Signs/Symptoms: PO intake <25% Malnutrition Alert Is there a minimum of two criteria No selected? Query Text:Check all the applicable criteria. A minimum of two criteria are recommended for diagnosis of either severe or non-severe malnutrition. Malnutrition Related to Morbid Obesity Malnutrition related to morbid obesity No Intervention/Recommendation Comments 1. Continue with regular diet as ordered. MD to consider appetite stimulant. Encourage oral intake. 2. Monitor PO intake, wt, labs and skin integrity 3. F/U as high risk in 2-3 days, 03/22-03/23 Expected Outcomes/Goals Expected Outcomes/Goals 1. PO intake to meet at least 75% of nutritional needs. 2. Wt stability, skin to remain intact, labs to approach WNL.
[2018-03-21] MEDS: Atorvastatin Calcium 10 MG TAB PO SCH (21:00)
--- NOTE | 2018-03-22 10:46 | Progress Notes ---
DATE: 03/21/2018 SUBJECTIVE: The patient continued to be confused. The patient also is still depressed. The patient also is interacting minimally with others. She also still has difficulty with her mood and controlling her temper. The patient also still refusing to take medications. ASSESSMENT: The patient is still psychotic. TREATMENT PLAN: Continue monitoring her behavior and her condition and continue to follow up. [facility]# [id number]
--- NOTE | 2018-03-22 20:29 | Internal Medicine Prog Note ---
Internal Medicine Subjective - Subjective Service Date: 03/22/18 Patient is:: awake, verbal, in bed Per staff patient has:: no adverse event Internal Medicine Objective - Results Result Diagrams: 03/14/18 17:20 03/14/18 17:20 Recent Labs: Laboratory Last Values WBC 7.2 Th/cmm (4.8-10.8) 03/14/18 17:20 RBC 4.50 Mil/cmm (3.80-5.10) 03/14/18 17:20 Hgb 13.0 gm/dL (12-16) 03/14/18 17:20 Hct 39.1 % (41.0-60) L 03/14/18 17:20 MCV 87.0 fl (81-100) 03/14/18 17:20 MCH 28.9 pg (27.0-31.0) 03/14/18 17:20 MCHC Differential 33.3 pg (28.0-36.0) 03/14/18 17:20 RDW 12.9 % (11.5-20.0) 03/14/18 17:20 Plt Count 275 Th/cmm (150-400) 03/14/18 17:20 MPV 7.7 fl 03/14/18 17:20 Neutrophils % 61.5 % (40.0-80.0) 03/14/18 17:20 Lymphocytes % 28.5 % (20.0-50.0) 03/14/18 17:20 Monocytes % 8.3 % (2.0-10.0) 03/14/18 17:20 Eosinophils % 0.9 % (0.0-5.0) 03/14/18 17:20 Basophils % 0.8 % (0.0-2.0) 03/14/18 17:20 Sodium 140 mEq/L (136-145) 03/14/18 17:20 Potassium 3.7 mEq/L (3.5-5.1) 03/14/18 17:20 Chloride 106 mEq/L (98-107) 03/14/18 17:20 Carbon Dioxide 28.8 mEq/L (21.0-31.0) 03/14/18 17:20 Anion Gap 8.9 (7.0-16.0) 03/14/18 17:20 BUN 23 mg/dL (7-25) 03/14/18 17:20 Creatinine 0.7 mg/dL (0.6-1.2) 03/14/18 17:20 Est GFR ( Amer) > 60.0 ml/min (>90) 03/14/18 17:20 Est GFR (Non-Af Amer) > 60.0 ml/min 03/14/18 17:20 BUN/Creatinine Ratio 32.9 03/14/18 17:20 Glucose 103 mg/dL (70-105) 03/14/18 17:20 Calcium 9.7 mg/dL (8.6-10.3) 03/14/18 17:20 Phosphorus 3.4 mg/dL (2.5-5.0) 03/14/18 17:20 Magnesium 2.0 mg/dL (1.9-2.7) 03/14/18 17:20 Total Bilirubin 0.4 mg/dL (0.3-1.0) 03/14/18 17:20 AST 12 U/L (13-39) L 03/14/18 17:20 ALT 8 U/L (7-52) 03/14/18 17:20 Alkaline Phosphatase 55 U/L (34-104) 03/14/18 17:20 Total Protein 7.3 gm/dL (6.0-8.3) 03/14/18 17:20 Albumin 4.4 gm/dL (3.7-5.3) 03/14/18 17:20 Globulin 2.9 gm/dL 03/14/18 17:20 Albumin/Globulin Ratio 1.5 (1.0-1.8) 03/14/18 17:20 TSH 0.64 uIU/ml (0.34-5.60) 03/14/18 17:20 - Physical Exam Vitals and I&O: Vital Signs Temp 97.0 F 03/22/18 16:11 Pulse 76 03/22/18 16:11 Resp 18 03/22/18 16:11 BP 104/67 03/22/18 16:11 Pulse Ox 97 03/22/18 16:11 Intake & Output 03/22/18 03/22/18 03/23/18 06:59 18:59 06:59 Intake Total 200 Balance 200 Intake: Oral 200 Other: # Voids 1 Stool Characteristics Soft Active Medications: Current Medications Al Hydrox/Mg Hydrox/Simethicone (Maalox) 30 ml PO Q6H PRN PRN Reason: GI DISTRESS Stop: 05/14/18 07:18 Atorvastatin Calcium (Lipitor) 10 mg PO HS [facility]; Protocol Stop: 05/14/18 20:59 Last Admin: 03/21/18 21:00 Dose: Not Given Divalproex Sodium (Depakote Dr) 500 mg PO HS [facility]; Protocol Stop: 05/15/18 20:59 Last Admin: 03/21/18 21:00 Dose: Not Given Docusate Sodium (Colace) 250 mg PO DAILY [facility] Stop: 05/14/18 08:59 Last Admin: 03/22/18 11:06 Dose: Not Given Lorazepam (Ativan) 1 mg PO BID [facility]; Protocol Stop: 05/14/18 08:59 Last Admin: 03/22/18 16:35 Dose: Not Given Olanzapine (Zyprexa) 15 mg PO HS [facility]; Protocol Stop: 05/14/18 20:59 Last Admin: 03/21/18 21:00 Dose: Not Given Trazodone HCl (Desyrel) 50 mg PO HS [facility]; Protocol Stop: 05/13/18 20:59 Last Admin: 03/21/18 21:00 Dose: Not Given General: demented HEENT: NC/AT, PERRLA, EOMI, anicteric sclerae, throat clear Neck: Supple, No JVD, No thyromegaly, +2 carotid pulse wo bruit, No LAD Lungs: CTAB Cardiovascular: Normal S1, Normal S2, without murmur Abdomen: soft, non-tender, non-distended Extremities: clear Neurological: no change Internal Medicine Assmt/Plan - Assessment Assessment: 1.HYPERLIPIDEMIA. 2.DJD. 3.DEMENTIA. 4.PSYCHOSIS. - Plan Plan: CONTINUE ON CURRENT MEDICATION AND DIET. Nutritional Asmnt/Malnutr-PDOC - Dietary Evaluation Malnutrition Findings (Please click <Entered> for more info): Nutritional Asmnt/Malnutrition Start: 03/20/18 15: 29 Text: Status: Complete Freq: Protocol: Document 03/20/18 15:29 [email or web address] (Rec: 03/20/18 15:41 [email or web address]) Nutritional Asmnt/Malnutrition Patient General Information Nutritional Screening Low Risk Diagnosis psychosis Pertinent Medical Hx/Surgical Hx hyperlipidemia, DJD, dementia, psychosis Subjective Information Pt seen sleeping in bed at time of visit. Spoke with nurse, pt has been refusing food and medications, not communicating with staff. Per EMR, PO intake 0% x 6 meals on 03/15 and 03/16, 25% of lunch and 50% of dinner on 03/19. Current Diet Order/ Nutrition Support regular Pertinent Medications colace, lipitor Pertinent Labs 03/14 nutrition related labs WNL Nutritional Hx/Data Height 1.65 m Height (Calculated Centimeters) 165.1 Current Weight (lbs) 70.307 kg Weight (Calculated Kilograms) 70.3 Weight (Calculated Grams) 09479.8 [place] Body Weight 125 Body Mass Index (BMI) 25.7 Weight Status Overweight GI Symptoms GI Symptoms None Last BM none Difficult in: None Skin Integrity/Comment: intact Current %PO Negligible < 25% Estimated Nutritional Goals BEE in Kcals: Using Current wt Calories/Kcals/Kg 23-27 Kcals Calculated 1683-3311 Protein: Using Current wt Protein g/k.8-1 Protein Calculated 56-70 Fluid: ml 1610-1890ml (1ml/kcal) Nutritional Problem No current Nutrition Prob Problem inadequate food intake Etiology possible poor appetite, confusion Signs/Symptoms: PO intake <25% Malnutrition Alert Is there a minimum of two criteria No selected? Query Text:Check all the applicable criteria. A minimum of two criteria are recommended for diagnosis of either severe or non-severe malnutrition. Malnutrition Related to Morbid Obesity Malnutrition related to morbid obesity No Intervention/Recommendation Comments 1. Continue with regular diet as ordered. MD to consider appetite stimulant. Encourage oral intake. 2. Monitor PO intake, wt, labs and skin integrity 3. F/U as high risk in 2-3 days, 03/22-03/23 Expected Outcomes/Goals Expected Outcomes/Goals 1. PO intake to meet at least 75% of nutritional needs. 2. Wt stability, skin to remain intact, labs to approach WNL.
[2018-03-22] MEDS: Atorvastatin Calcium 10 MG TAB PO SCH (21:11)
--- NOTE | 2018-03-22 21:48 | Progress Notes ---
DATE: 03/22/2018 SUBJECTIVE: Chart reviewed and the patient interviewed. Also discussed the patient's condition with the staff and reviewed records and labs. The patient is still depressed and is still isolative and withdrawn. The patient also is interacting minimally with others and wants to be left alone. The patient also needs lots of redirections and prompt instructions in order to take her medications. Otherwise, the patient does take her medications. ASSESSMENT: The patient is still depressed and agitated. TREATMENT PLAN: Continue follow up. PSYCHIATRIC# [id number]
--- NOTE | 2018-03-23 17:07 | Internal Medicine Prog Note ---
Internal Medicine Subjective - Subjective Service Date: 03/23/18 Patient seen and examined:: with staff Patient is:: awake, verbal, in bed Per staff patient has:: no adverse event Internal Medicine Objective - Results Result Diagrams: 03/14/18 17:20 03/14/18 17:20 Recent Labs: Laboratory Last Values WBC 7.2 Th/cmm (4.8-10.8) 03/14/18 17:20 RBC 4.50 Mil/cmm (3.80-5.10) 03/14/18 17:20 Hgb 13.0 gm/dL (12-16) 03/14/18 17:20 Hct 39.1 % (41.0-60) L 03/14/18 17:20 MCV 87.0 fl (81-100) 03/14/18 17:20 MCH 28.9 pg (27.0-31.0) 03/14/18 17:20 MCHC Differential 33.3 pg (28.0-36.0) 03/14/18 17:20 RDW 12.9 % (11.5-20.0) 03/14/18 17:20 Plt Count 275 Th/cmm (150-400) 03/14/18 17:20 MPV 7.7 fl 03/14/18 17:20 Neutrophils % 61.5 % (40.0-80.0) 03/14/18 17:20 Lymphocytes % 28.5 % (20.0-50.0) 03/14/18 17:20 Monocytes % 8.3 % (2.0-10.0) 03/14/18 17:20 Eosinophils % 0.9 % (0.0-5.0) 03/14/18 17:20 Basophils % 0.8 % (0.0-2.0) 03/14/18 17:20 Sodium 140 mEq/L (136-145) 03/14/18 17:20 Potassium 3.7 mEq/L (3.5-5.1) 03/14/18 17:20 Chloride 106 mEq/L (98-107) 03/14/18 17:20 Carbon Dioxide 28.8 mEq/L (21.0-31.0) 03/14/18 17:20 Anion Gap 8.9 (7.0-16.0) 03/14/18 17:20 BUN 23 mg/dL (7-25) 03/14/18 17:20 Creatinine 0.7 mg/dL (0.6-1.2) 03/14/18 17:20 Est GFR ( Amer) > 60.0 ml/min (>90) 03/14/18 17:20 Est GFR (Non-Af Amer) > 60.0 ml/min 03/14/18 17:20 BUN/Creatinine Ratio 32.9 03/14/18 17:20 Glucose 103 mg/dL (70-105) 03/14/18 17:20 Calcium 9.7 mg/dL (8.6-10.3) 03/14/18 17:20 Phosphorus 3.4 mg/dL (2.5-5.0) 03/14/18 17:20 Magnesium 2.0 mg/dL (1.9-2.7) 03/14/18 17:20 Total Bilirubin 0.4 mg/dL (0.3-1.0) 03/14/18 17:20 AST 12 U/L (13-39) L 03/14/18 17:20 ALT 8 U/L (7-52) 03/14/18 17:20 Alkaline Phosphatase 55 U/L (34-104) 03/14/18 17:20 Total Protein 7.3 gm/dL (6.0-8.3) 03/14/18 17:20 Albumin 4.4 gm/dL (3.7-5.3) 03/14/18 17:20 Globulin 2.9 gm/dL 03/14/18 17:20 Albumin/Globulin Ratio 1.5 (1.0-1.8) 03/14/18 17:20 TSH 0.64 uIU/ml (0.34-5.60) 03/14/18 17:20 - Physical Exam Vitals and I&O: Vital Signs Temp 100 F 03/23/18 16:37 Pulse 80 03/23/18 16:37 Resp 18 03/23/18 16:37 BP 103/70 03/23/18 16:37 Pulse Ox 97 03/23/18 16:37 Intake & Output 03/22/18 03/23/18 03/23/18 18:59 06:59 18:59 Intake Total 200 Balance 200 Intake: Oral 200 Other: # Voids 1 Stool Characteristics Soft Soft Active Medications: Current Medications Al Hydrox/Mg Hydrox/Simethicone (Maalox) 30 ml PO Q6H PRN PRN Reason: GI DISTRESS Stop: 05/14/18 07:18 Atorvastatin Calcium (Lipitor) 10 mg PO HS CHRISTIE; Protocol Stop: 05/14/18 20:59 Last Admin: 03/22/18 21:11 Dose: Not Given Divalproex Sodium (Depakote Dr) 500 mg PO HS CHRISTIE; Protocol Stop: 05/15/18 20:59 Last Admin: 03/22/18 21:13 Dose: Not Given Docusate Sodium (Colace) 250 mg PO DAILY CHRISTIE Stop: 05/14/18 08:59 Last Admin: 03/23/18 08:59 Dose: Not Given Olanzapine (Zyprexa) 15 mg PO HS CHRISTIE; Protocol Stop: 05/14/18 20:59 Last Admin: 03/22/18 21:12 Dose: Not Given Trazodone HCl (Desyrel) 50 mg PO HS CHRISTIE; Protocol Stop: 05/13/18 20:59 Last Admin: 03/22/18 21:12 Dose: Not Given General: demented HEENT: NC/AT, PERRLA, EOMI, anicteric sclerae, throat clear Neck: Supple, No JVD, No thyromegaly, +2 carotid pulse wo bruit, No LAD Lungs: CTAB Cardiovascular: Normal S1, Normal S2, without murmur Abdomen: soft, non-tender, non-distended Extremities: clear Neurological: no change Internal Medicine Assmt/Plan - Assessment Assessment: 1.HYPERLIPIDEMIA. 2.DJD. 3.DEMENTIA. 4.PSYCHOSIS. - Plan Plan: CONTINUE ON CURRENT MEDICATION AND DIET. Nutritional Asmnt/Malnutr-PDOC - Dietary Evaluation Malnutrition Findings (Please click <Entered> for more info): Nutritional Asmnt/Malnutrition Start: 03/20/18 15: 29 Text: Status: Complete Freq: Protocol: Document 03/20/18 15:29 [email or web address] (Rec: 03/20/18 15:41 [email or web address] [email or web address]) Nutritional Asmnt/Malnutrition Patient General Information Nutritional Screening Low Risk Diagnosis psychosis Pertinent Medical Hx/Surgical Hx hyperlipidemia, DJD, dementia, psychosis Subjective Information Pt seen sleeping in bed at time of visit. Spoke with nurse, pt has been refusing food and medications, not communicating with staff. Per EMR, PO intake 0% x 6 meals on 03/15 and 03/16, 25% of lunch and 50% of dinner on 03/19. Current Diet Order/ Nutrition Support regular Pertinent Medications colace, lipitor Pertinent Labs 03/14 nutrition related labs WNL Nutritional Hx/Data Height 1.65 m Height (Calculated Centimeters) 165.1 Current Weight (lbs) 70.307 kg Weight (Calculated Kilograms) 70.3 Weight (Calculated Grams) 05601.8 [place] Body Weight 125 Body Mass Index (BMI) 25.7 Weight Status Overweight GI Symptoms GI Symptoms None Last BM none Difficult in: None Skin Integrity/Comment: intact Current %PO Negligible < 25% Estimated Nutritional Goals BEE in Kcals: Using Current wt Calories/Kcals/Kg 23-27 Kcals Calculated 6493-6656 Protein: Using Current wt Protein g/k.8-1 Protein Calculated 56-70 Fluid: ml 1610-1890ml (1ml/kcal) Nutritional Problem No current Nutrition Prob Problem inadequate food intake Etiology possible poor appetite, confusion Signs/Symptoms: PO intake <25% Malnutrition Alert Is there a minimum of two criteria No selected? Query Text:Check all the applicable criteria. A minimum of two criteria are recommended for diagnosis of either severe or non-severe malnutrition. Malnutrition Related to Morbid Obesity Malnutrition related to morbid obesity No Intervention/Recommendation Comments 1. Continue with regular diet as ordered. MD to consider appetite stimulant. Encourage oral intake. 2. Monitor PO intake, wt, labs and skin integrity 3. F/U as high risk in 2-3 days, 03/22-03/23 Expected Outcomes/Goals Expected Outcomes/Goals 1. PO intake to meet at least 75% of nutritional needs. 2. Wt stability, skin to remain intact, labs to approach WNL.
[2018-03-23] MEDS: Atorvastatin Calcium 10 MG TAB PO SCH (21:00)
--- NOTE | 2018-03-24 01:40 | Progress Notes ---
DATE: 03/23/2018 SUBJECTIVE: Chart reviewed and the patient interviewed. Also, discussed the patient's condition with the staff and reviewed records and labs. The patient is still in a depressed mood. The patient also is still isolative and withdrawn. The patient also is at times uncooperative with the staff and needs redirections at times. She is on the other hand is compliant with taking her medications with no side effects of medications. ASSESSMENT: The patient is still depressed and needs lots of supportive therapy. TREATMENT PLAN: Continue to monitor her behavior and her condition closely. Also, continue to work on her ineffective coping and followup. JOB# [id number]
--- NOTE | 2018-03-24 20:54 | Internal Medicine Prog Note ---
Internal Medicine Subjective - Subjective Service Date: 03/24/18 Patient seen and examined:: with staff Patient is:: awake, verbal, in bed Per staff patient has:: no adverse event Internal Medicine Objective - Results Result Diagrams: 03/14/18 17:20 03/14/18 17:20 Recent Labs: Laboratory Last Values WBC 7.2 Th/cmm (4.8-10.8) 03/14/18 17:20 RBC 4.50 Mil/cmm (3.80-5.10) 03/14/18 17:20 Hgb 13.0 gm/dL (12-16) 03/14/18 17:20 Hct 39.1 % (41.0-60) L 03/14/18 17:20 MCV 87.0 fl (81-100) 03/14/18 17:20 MCH 28.9 pg (27.0-31.0) 03/14/18 17:20 MCHC Differential 33.3 pg (28.0-36.0) 03/14/18 17:20 RDW 12.9 % (11.5-20.0) 03/14/18 17:20 Plt Count 275 Th/cmm (150-400) 03/14/18 17:20 MPV 7.7 fl 03/14/18 17:20 Neutrophils % 61.5 % (40.0-80.0) 03/14/18 17:20 Lymphocytes % 28.5 % (20.0-50.0) 03/14/18 17:20 Monocytes % 8.3 % (2.0-10.0) 03/14/18 17:20 Eosinophils % 0.9 % (0.0-5.0) 03/14/18 17:20 Basophils % 0.8 % (0.0-2.0) 03/14/18 17:20 Sodium 140 mEq/L (136-145) 03/14/18 17:20 Potassium 3.7 mEq/L (3.5-5.1) 03/14/18 17:20 Chloride 106 mEq/L (98-107) 03/14/18 17:20 Carbon Dioxide 28.8 mEq/L (21.0-31.0) 03/14/18 17:20 Anion Gap 8.9 (7.0-16.0) 03/14/18 17:20 BUN 23 mg/dL (7-25) 03/14/18 17:20 Creatinine 0.7 mg/dL (0.6-1.2) 03/14/18 17:20 Est GFR ( Amer) > 60.0 ml/min (>90) 03/14/18 17:20 Est GFR (Non-Af Amer) > 60.0 ml/min 03/14/18 17:20 BUN/Creatinine Ratio 32.9 03/14/18 17:20 Glucose 103 mg/dL (70-105) 03/14/18 17:20 Calcium 9.7 mg/dL (8.6-10.3) 03/14/18 17:20 Phosphorus 3.4 mg/dL (2.5-5.0) 03/14/18 17:20 Magnesium 2.0 mg/dL (1.9-2.7) 03/14/18 17:20 Total Bilirubin 0.4 mg/dL (0.3-1.0) 03/14/18 17:20 AST 12 U/L (13-39) L 03/14/18 17:20 ALT 8 U/L (7-52) 03/14/18 17:20 Alkaline Phosphatase 55 U/L (34-104) 03/14/18 17:20 Total Protein 7.3 gm/dL (6.0-8.3) 03/14/18 17:20 Albumin 4.4 gm/dL (3.7-5.3) 03/14/18 17:20 Globulin 2.9 gm/dL 03/14/18 17:20 Albumin/Globulin Ratio 1.5 (1.0-1.8) 03/14/18 17:20 TSH 0.64 uIU/ml (0.34-5.60) 03/14/18 17:20 - Physical Exam Vitals and I&O: Vital Signs Temp 0 F 03/24/18 20:23 Pulse 80 03/23/18 16:37 Resp 18 03/23/18 16:37 BP 103/70 03/23/18 16:37 Pulse Ox 97 03/23/18 16:37 Intake & Output 03/24/18 03/24/18 03/25/18 06:59 18:59 06:59 Intake Total 120 120 Balance 120 120 Weight (lbs) 70.307 kg 70.307 kg Intake: Oral 120 120 Other: # Voids 2 3 # Bowel Movements 0 0 Stool Characteristics Soft Soft Soft Weight Source Bedscale Bedscale Active Medications: Current Medications Al Hydrox/Mg Hydrox/Simethicone (Maalox) 30 ml PO Q6H PRN PRN Reason: GI DISTRESS Stop: 05/14/18 07:18 Atorvastatin Calcium (Lipitor) 10 mg PO HS CHRISTIE; Protocol Stop: 05/14/18 20:59 Last Admin: 03/23/18 21:00 Dose: Not Given Divalproex Sodium (Depakote Dr) 500 mg PO HS CHRISTIE; Protocol Stop: 05/15/18 20:59 Last Admin: 03/23/18 21:00 Dose: Not Given Docusate Sodium (Colace) 250 mg PO DAILY CHRISTIE Stop: 05/14/18 08:59 Last Admin: 03/24/18 10:17 Dose: Not Given Olanzapine (Zyprexa) 15 mg PO HS CHRISTIE; Protocol Stop: 05/14/18 20:59 Last Admin: 03/23/18 21:00 Dose: Not Given Trazodone HCl (Desyrel) 50 mg PO HS CHRISTIE; Protocol Stop: 05/13/18 20:59 Last Admin: 03/23/18 21:00 Dose: Not Given General: demented HEENT: NC/AT, PERRLA, EOMI, anicteric sclerae, throat clear Neck: Supple, No JVD, No thyromegaly, +2 carotid pulse wo bruit, No LAD Lungs: CTAB Cardiovascular: Normal S1, Normal S2, without murmur Abdomen: soft, non-tender, non-distended Extremities: clear Neurological: no change Internal Medicine Assmt/Plan - Assessment Assessment: 1.HYPERLIPIDEMIA. 2.DJD. 3.DEMENTIA. 4.PSYCHOSIS. - Plan Plan: CONTINUE ON CURRENT MEDICATION AND DIET. Nutritional Asmnt/Malnutr-PDOC - Dietary Evaluation Malnutrition Findings (Please click <Entered> for more info): Nutritional Asmnt/Malnutrition Start: 03/20/18 15: 29 Text: Status: Complete Freq: Protocol: Document 03/20/18 15:29 [email or web address] (Rec: 03/20/18 15:41 [email or web address] [email or web address]) Nutritional Asmnt/Malnutrition Patient General Information Nutritional Screening Low Risk Diagnosis psychosis Pertinent Medical Hx/Surgical Hx hyperlipidemia, DJD, dementia, psychosis Subjective Information Pt seen sleeping in bed at time of visit. Spoke with nurse, pt has been refusing food and medications, not communicating with staff. Per EMR, PO intake 0% x 6 meals on 03/15 and 03/16, 25% of lunch and 50% of dinner on 03/19. Current Diet Order/ Nutrition Support regular Pertinent Medications colace, lipitor Pertinent Labs 03/14 nutrition related labs WNL Nutritional Hx/Data Height 1.65 m Height (Calculated Centimeters) 165.1 Current Weight (lbs) 70.307 kg Weight (Calculated Kilograms) 70.3 Weight (Calculated Grams) 13101.8 [place] Body Weight 125 Body Mass Index (BMI) 25.7 Weight Status Overweight GI Symptoms GI Symptoms None Last BM none Difficult in: None Skin Integrity/Comment: intact Current %PO Negligible < 25% Estimated Nutritional Goals BEE in Kcals: Using Current wt Calories/Kcals/Kg 23-27 Kcals Calculated 0472-2395 Protein: Using Current wt Protein g/k.8-1 Protein Calculated 56-70 Fluid: ml 1610-1890ml (1ml/kcal) Nutritional Problem No current Nutrition Prob Problem inadequate food intake Etiology possible poor appetite, confusion Signs/Symptoms: PO intake <25% Malnutrition Alert Is there a minimum of two criteria No selected? Query Text:Check all the applicable criteria. A minimum of two criteria are recommended for diagnosis of either severe or non-severe malnutrition. Malnutrition Related to Morbid Obesity Malnutrition related to morbid obesity No Intervention/Recommendation Comments 1. Continue with regular diet as ordered. MD to consider appetite stimulant. Encourage oral intake. 2. Monitor PO intake, wt, labs and skin integrity 3. F/U as high risk in 2-3 days, 03/22-03/23 Expected Outcomes/Goals Expected Outcomes/Goals 1. PO intake to meet at least 75% of nutritional needs. 2. Wt stability, skin to remain intact, labs to approach WNL.
[2018-03-24] MEDS: Atorvastatin Calcium 10 MG TAB PO SCH (21:46)
--- NOTE | 2018-03-24 23:17 | Progress Notes ---
DATE: 03/24/2018 SUBJECTIVE: Chart reviewed and the patient interviewed. Also discussed the patient's condition with the staff and reviewed the records and labs. The patient is still in a depressed mood. The patient also is still withdrawn and isolating himself. She also is minimally interacting with others. Otherwise, decreased mood swings. ASSESSMENT: The patient is still having mood swings. TREATMENT PLAN: Continue Zyprexa, trazodone, and Depakote. Also, we will get a Depakote blood level today and continue to follow up. JOB# [id number]
--- NOTE | 2018-03-25 21:52 | Discharge Summary ---
DATE OF DISCHARGE: 03/25/2018 AGE: 62. SEX: Female. PHYSICIAN: Dr. Veras. FINAL DIAGNOSIS: PRIMARY DIAGNOSIS: Chronic paranoid schizophrenia with acute exacerbation. MEDICAL DIAGNOSES: 1. Hyperlipidemia. 2. Degenerative joint disease. REASON FOR HOSPITALIZATION: The patient was admitted to the hospital from [facility] because of aggressive behavior and striking out. The patient also was agitated and she was not able to follow directions and she was not lg for safety. HOSPITAL COURSE: The patient continued to be paranoid and agitated. The patient also was in irritable moods. The patient also was not able to follow directions. She also was not suicidal or homicidal. The patient also was confused most of the time. The patient was started on Depakote 500 mg at bedtime and Zyprexa dose adjusted to 50 mg at bedtime. Also, because of insomnia the patient was given trazodone 50 mg at bedtime. DISCHARGE MEDICATIONS: As before. Brighter was not agitated or irritable. The patient was discharged from the hospital. AFTER DISCHARGE PLANS: The patient discharged from the hospital and went to live in [place] with plans to follow her up there. EXPECTED OUTCOME AFTER DISCHARGE: Fair if the patient continues to take her psychotropic medications and follow up with discharge plans. [facility]# [id number]
--- NOTE | 2018-03-26 00:21 | Progress Notes ---
DATE: SUBJECTIVE: Chart reviewed and the patient interviewed. Also discussed the patient's condition with the staff and reviewed records and labs. The patient's affect is brighter. The patient is less irritable and less agitated. The patient also is interacting more. She denies any thoughts of suicide or homicide. She also is more cooperative with her treatment. Discussed with porter sample case discharge plans and hopefully the patient can return to [place] and social research assistant to confirm that. At the same time, we will continue monitoring her behavior and continue to follow up. [facility]# [id number]
== END 2018-03-25 15:15 | DRG 885 ==
LOC: ER 16:57 → GERO 18:20
PROVIDERS: ADMIT Psychiatry & Neurology Psychiatry; ATTEND Psychiatry & Neurology Psychiatry
DX: F20.0 Paranoid schizophrenia (principal); F03.91 Unspecified dementia, unspecified severity, with behavioral disturbance; F39 Unspecified mood [affective] disorder; F41.9 Anxiety disorder, unspecified; F29 Unspecified psychosis not due to a substance or known physiological condition; E78.5 Hyperlipidemia, unspecified; M19.90 Unspecified osteoarthritis, unspecified site; Z88.2 Allergy status to sulfonamides
CPT/HCPCS: 36415-UA; 80053-TC; 83735-TC; 84100-TC; 84443-TC; 85025-TC

== ENCOUNTER 2019-08-13 15:06 | Inpatient (IN) | payer MEDICARE, MEDICAID ==
[2019-08-13 21:21] VITALS: BP 122/79
[2019-08-13] MEDS ORDERED: Maalox 30 mL Cup PO PRN (21:28)
--- NOTE | 2019-08-14 21:08 | Psychiatric Evaluation ---
DATE OF SERVICE: 08/14/2019 HISTORY OF PRESENT ILLNESS: A 64-year-old female coming from [facility] originally from [facility], history of schizophrenia, anxiety, depression, dementia, osteoarthritis, hyperlipidemia, neuropathy, and GERD. The patient apparently conserved LPS conservatorship, paranoid, delusions, believing staff are stealing things from her, constantly talking to herself in the room, responding to internal stimuli, refusing to speak with me right now, not wanting to take any medications, but conserved. PAST PSYCHIATRIC HISTORY: Schizophrenia seems chronic. FAMILY HISTORY: Noncontributory. SOCIAL HISTORY: Coming from outside facility. Unclear family support, conserved through the court. MEDICAL: Please see full H and P. MEDICATIONS: Reviewed. MENTAL STATUS EXAMINATION: Stated age, refusing to speak with me. Not answering any questions, unclear SI or HI, paranoia, believing people are stealing, poor insight. PROVISIONAL DIAGNOSES: Schizophrenia noted dementia per documentation. MEDICAL: Please see full H and P. ESTIMATED LENGTH OF STAY: 7-10 days. ASSESSMENT: The patient requiring hospitalization, agitated, cannot be cared at a lower level, increased delusions. TREATMENT PLAN: Includes group as well as milieu therapy. CONDITIONS FOR DISCHARGE: Improved mood, improved affect, better control of any psychotic symptoms, delusions. JOB# [id number]
[2019-08-14] MEDS: Atorvastatin Calcium 10 MG TAB PO SCH (21:15)
--- NOTE | 2019-08-14 21:46 | History & Physical ---
ADMIT DATE: HISTORY OF PRESENT ILLNESS: The patient is a 64-year-old female with long history of hyperlipidemia, COPD, degenerative joint disease, psychosis, admitted to [facility] under Dr. Hammond's service. The patient denies any fever, chills, nausea or vomiting. PAST MEDICAL HISTORY: Significant for hyperlipidemia, COPD, degenerative joint disease and psychosis. PAST SURGICAL HISTORY: No recent surgery. ALLERGIES: SULFA. SOCIAL HISTORY: Chronic smoker. No alcohol or drug. FAMILY HISTORY: Noncontributory. MEDICATIONS: Follow admission reconciliation. REVIEW OF SYSTEMS: RENAL SYSTEM: No history of chronic renal disorder. CARDIOVASCULAR SYSTEM: No coronary artery disease. ENDOCRINE SYSTEM: No diabetes or thyroid problem. GASTROINTESTINAL SYSTEM: No upper or lower gastrointestinal bleed. NEUROLOGICAL SYSTEM: No seizure disorder. SKELETOMUSCULAR SYSTEM: No muscular dystrophy. HEMATOLOGICAL SYSTEM: No bleeding tendencies. RESPIRATORY SYSTEM: She has history of chronic obstructive pulmonary disease. GENITOURINARY: No dysuria or hematuria. PHYSICAL EXAMINATION: GENERAL: She is awake, alert, confused. VITAL SIGNS: Temperature 98, heart rate 58, blood pressure 106/69. HEENT: Normocephalic. Pupils are reactive to light and accommodation. Sclerae clear. NECK: Supple. Negative for lymphadenopathy, JVD or bruit. CHEST: Entry of air bilaterally mild diminished. No wheezing. HEART: S1, S2 normal. No gallop rhythm. ABDOMEN: Soft, bowel sounds positive. EXTREMITIES: No edema. NEUROLOGIC: Awake, alert, mildly confused. No focal muscle deficit. ASSESSMENT: 1. Hyperlipidemia. 2. Chronic obstructive pulmonary disease. 3. Degenerative joint disease. 4. Psychosis. PLAN: The patient in the [facility] under Dr. Hammond's service. Problem addressed during this hospitalization is psychosis. Problem addressed at discharge cessation of smoking, hyperlipidemia. The patient is medically stable for activity. Thank you, Dr. Hammond, for asking me to see your patient. The patient is a full code. JOB# [id number]
[2019-08-15] MEDS: Atorvastatin Calcium 10 MG TAB PO SCH (20:30)
--- NOTE | 2019-08-15 20:57 | General Progress Note ---
Subjective - Review of Systems Service Date: 08/15/19 Subjective: resting comfortably no distress Objective - Physical Exam Vitals and I&O: Vital Signs Temp 97.7 F 08/15/19 14:41 Pulse 72 08/15/19 14:41 Resp 18 08/15/19 14:41 BP 108/66 08/15/19 14:41 Pulse Ox 97 08/15/19 14:41 Intake & Output 08/15/19 08/15/19 08/16/19 06:59 18:59 06:59 Intake Total 240 Balance 240 Intake: Oral 240 Other: # Voids 0 # Bowel Movements 0 Active Medications: Current Medications Al Hydrox/Mg Hydrox/Simethicone (Maalox) 30 ml PO Q6H PRN PRN Reason: GI DISTRESS Stop: 10/12/19 21:27 Atorvastatin Calcium (Lipitor) 10 mg PO HS CHRISTIE; Protocol Stop: 10/13/19 20:59 Last Admin: 08/15/19 20:30 Dose: Not Given Divalproex Sodium (Depakote Dr) 250 mg PO HS CHRISTIE; Protocol Stop: 10/13/19 21:29 Last Admin: 08/15/19 20:30 Dose: Not Given Docusate Sodium (Colace) 250 mg PO DAILY CHRISTIE Stop: 10/13/19 08:59 Last Admin: 08/15/19 09:00 Dose: Not Given Lorazepam (Ativan) 0.5 mg PO Q4HR PRN; Protocol PRN Reason: Anxiety Stop: 09/12/19 21:55 Lorazepam (Ativan) 0.5 mg PO HS CHRISTIE; Protocol Stop: 10/13/19 20:59 Last Admin: 08/15/19 20:30 Dose: Not Given Olanzapine (Zyprexa) 10 mg PO HS CHRISTIE; Protocol Stop: 10/13/19 21:29 Last Admin: 08/15/19 20:30 Dose: Not Given Trazodone HCl (Desyrel) 25 mg PO HS CHRISTIE; Protocol Stop: 10/13/19 20:59 Last Admin: 08/15/19 20:30 Dose: Not Given Zolpidem Tartrate (Ambien) 5 mg PO HS PRN PRN Reason: Insomnia Stop: 10/12/19 21:55 General: No acute distress HEENT: PERRLA, EOMI Neck: Supple, JVD, Thyromegaly Cardiovascular: Regular rate, Normal S1, Normal S2 Lungs: Clear to auscultation Abdomen: Bowel sounds, Soft Assessment/Plan - Assessment Assessment: 1.HYPERLIPIDEMIA. 2.DJD. 3.COPD. 4.PSYCHOSIS - Plan Plan: continue current treatment
--- NOTE | 2019-08-16 01:26 | Progress Notes ---
DATE: 08/15/2019 SUBJECTIVE: The patient was seen and evaluated. The patient's chart reviewed. This is Dr. Alonzo doing psychiatric followup, covering for Dr. Hammond. IDENTIFYING DATA: This is a 64-year-old female brought in here from [facility], ____ originally brought in from [place] with a history of schizophrenia, anxiety, dementia, and conserved, was found constantly talking to herself and responding. Reconciliation reviewed, includes Depakote 200 mg at nighttime, Colace, Ativan, and olanzapine at 10 mg at bedtime. Today on [id number] evaluation, the patient ____ of the window, attempting to redirect her, she mostly persistently looks, the bed was then raised up to wake her up and break the intense stare out of the window. She is then responding, talking to herself, derails in conversation, does not participate in any conversation. ASSESSMENT AND PLAN: The patient with a history of schizophrenia. We will continue with the current medication regimen, which included the olanzapine as she continues to be psychotic and disorganized, almost catatonic like. JOB# [id number]
--- NOTE | 2019-08-16 13:59 | General Progress Note ---
Subjective - Review of Systems Service Date: 08/16/19 Subjective: resting comfortably no distress Objective - Physical Exam Vitals and I&O: Vital Signs Temp 97.7 F 08/15/19 14:41 Pulse 72 08/15/19 14:41 Resp 18 08/16/19 08:00 BP 108/66 08/15/19 14:41 Pulse Ox 97 08/15/19 14:41 Active Medications: Current Medications Al Hydrox/Mg Hydrox/Simethicone (Maalox) 30 ml PO Q6H PRN PRN Reason: GI DISTRESS Stop: 10/12/19 21:27 Atorvastatin Calcium (Lipitor) 10 mg PO HS CHRISTIE; Protocol Stop: 10/13/19 20:59 Last Admin: 08/15/19 20:30 Dose: Not Given Divalproex Sodium (Depakote Dr) 250 mg PO HS CHRISTIE; Protocol Stop: 10/13/19 21:29 Last Admin: 08/15/19 20:30 Dose: Not Given Docusate Sodium (Colace) 250 mg PO DAILY CHRISTIE Stop: 10/13/19 08:59 Last Admin: 08/16/19 09:06 Dose: Not Given Lorazepam (Ativan) 0.5 mg PO Q4HR PRN; Protocol PRN Reason: Anxiety Stop: 09/12/19 21:55 Lorazepam (Ativan) 0.5 mg PO HS CHRISTIE; Protocol Stop: 10/13/19 20:59 Last Admin: 08/15/19 20:30 Dose: Not Given Olanzapine (Zyprexa) 10 mg PO HS CHRISTIE; Protocol Stop: 10/13/19 21:29 Last Admin: 08/15/19 20:30 Dose: Not Given Trazodone HCl (Desyrel) 25 mg PO HS CHRISTIE; Protocol Stop: 10/13/19 20:59 Last Admin: 08/15/19 20:30 Dose: Not Given Zolpidem Tartrate (Ambien) 5 mg PO HS PRN PRN Reason: Insomnia Stop: 10/12/19 21:55 General: No acute distress HEENT: PERRLA, EOMI Neck: Supple, JVD, Thyromegaly Cardiovascular: Regular rate, Normal S1, Normal S2 Lungs: Clear to auscultation Abdomen: Bowel sounds, Soft Assessment/Plan - Assessment Assessment: 1.HYPERLIPIDEMIA. 2.DJD. 3.COPD. 4.PSYCHOSIS - Plan Plan: continue current treatment
--- NOTE | 2019-08-16 16:35 | Progress Notes ---
DATE: 08/16/2019 SUBJECTIVE: The patient was seen and evaluated. The patient's chart reviewed. Today on [id number] evaluation, the patient stares out in the wall, disengaged, does not respond to talk, selectively mute and thought blocking are evident. MENTAL STATUS EXAMINATION: Thought blocking selectively mute. ASSESSMENT AND PLAN: Schizophrenia, catatonic. We will continue with primary psychiatrist's treatment plan and goals to medication continue to reach steady state and redirection. JOB# [id number]
[2019-08-16] MEDS: Atorvastatin Calcium 10 MG TAB PO SCH (20:34)
--- NOTE | 2019-08-17 18:22 | Internal Medicine Prog Note ---
Internal Medicine Subjective - Subjective Service Date: 08/17/19 Patient seen and examined:: without staff (SHE IS CONFUSED) Patient is:: awake, non-verbal, in bed, confused Per staff patient has:: no adverse event Internal Medicine Objective - Physical Exam Vitals and I&O: Vital Signs Temp 97.9 F 08/16/19 20:28 Pulse 75 08/16/19 20:28 Resp 18 08/17/19 08:00 BP 110/57 08/16/19 20:28 Pulse Ox 97 08/16/19 20:28 Intake & Output 08/16/19 08/17/19 08/17/19 18:59 06:59 18:59 Intake Total 600 300 Balance 600 300 Intake: Oral 600 300 Other: # Voids 3 1 # Bowel Movements 0 0 Active Medications: Current Medications Al Hydrox/Mg Hydrox/Simethicone (Maalox) 30 ml PO Q6H PRN PRN Reason: GI DISTRESS Stop: 10/12/19 21:27 Atorvastatin Calcium (Lipitor) 10 mg PO HS CHRISTIE; Protocol Stop: 10/13/19 20:59 Last Admin: 08/16/19 20:34 Dose: Not Given Divalproex Sodium (Depakote Dr) 250 mg PO HS CHRISTIE; Protocol Stop: 10/13/19 21:29 Last Admin: 08/16/19 20:34 Dose: Not Given Docusate Sodium (Colace) 250 mg PO DAILY CHRISTIE Stop: 10/13/19 08:59 Last Admin: 08/17/19 09:09 Dose: Not Given Lorazepam (Ativan) 0.5 mg PO Q4HR PRN; Protocol PRN Reason: Anxiety Stop: 09/12/19 21:55 Lorazepam (Ativan) 0.5 mg PO HS CHRISTIE; Protocol Stop: 10/13/19 20:59 Last Admin: 08/16/19 20:34 Dose: Not Given Olanzapine (Zyprexa) 10 mg PO HS CHRISTIE; Protocol Stop: 10/13/19 21:29 Last Admin: 08/16/19 20:34 Dose: Not Given Trazodone HCl (Desyrel) 25 mg PO HS CHRISTIE; Protocol Stop: 10/13/19 20:59 Last Admin: 08/16/19 20:35 Dose: Not Given Zolpidem Tartrate (Ambien) 5 mg PO HS PRN PRN Reason: Insomnia Stop: 10/12/19 21:55 General: demented HEENT: NC/AT, PERRLA, EOMI, anicteric sclerae, throat clear Neck: Supple, No JVD, No thyromegaly, +2 carotid pulse wo bruit, No LAD Cardiovascular: Normal S1, Normal S2, without murmur Abdomen: non-tender, non-distended Extremities: clear Neurological: no change Internal Medicine Assmt/Plan - Assessment Assessment: 1.HYPERLIPIDEMIA. 2.COPD. 3.DJD. 4.PSYCHSIS - Plan Plan: CONTINUE ON CURRENT MEDICATION AND DIET.
[2019-08-17] MEDS: Atorvastatin Calcium 10 MG TAB PO SCH (20:33)
--- NOTE | 2019-08-18 00:12 | Progress Notes ---
DATE: 08/17/2019 SUBJECTIVE: A 64-year-old female coming in. History of schizophrenia, anxiety, dementia. The patient just stares at me blankly, not answering any questions. Per nursing staff, she is not taking any medications, conserved, LPS conservatorship. She actually cannot refuse her medications. I will put an order in for a backup dosing of Haldol once I review the conservatorship paperwork, ongoing symptoms, safety concerns. She is calm right now. JOB# [id number]
[2019-08-18] MEDS: Atorvastatin Calcium 10 MG TAB PO SCH (21:09)
--- NOTE | 2019-08-18 21:15 | Internal Medicine Prog Note ---
Internal Medicine Subjective - Subjective Service Date: 08/18/19 Patient seen and examined:: without staff (SHE IS CONFUSED) Patient is:: awake, non-verbal, in bed, confused Per staff patient has:: no adverse event Internal Medicine Objective - Physical Exam Vitals and I&O: Vital Signs Temp 97.7 F 08/18/19 14:00 Pulse 65 08/18/19 14:00 Resp 18 08/18/19 14:00 BP 97/52 08/18/19 14:00 Pulse Ox 96 08/18/19 14:00 Intake & Output 08/18/19 08/18/19 08/19/19 06:59 18:59 06:59 Intake Total 900 Balance 900 Intake: Oral 900 Other: # Voids 3 # Bowel Movements 2 Active Medications: Current Medications Al Hydrox/Mg Hydrox/Simethicone (Maalox) 30 ml PO Q6H PRN PRN Reason: GI DISTRESS Stop: 10/12/19 21:27 Atorvastatin Calcium (Lipitor) 10 mg PO HS CHRISTIE; Protocol Stop: 10/13/19 20:59 Last Admin: 08/18/19 21:09 Dose: Not Given Divalproex Sodium (Depakote Dr) 250 mg PO HS CHRISTIE; Protocol Stop: 10/13/19 21:29 Last Admin: 08/18/19 21:09 Dose: Not Given Docusate Sodium (Colace) 250 mg PO DAILY CHRISTIE Stop: 10/13/19 08:59 Last Admin: 08/18/19 09:15 Dose: 250 mg Lorazepam (Ativan) 0.5 mg PO Q4HR PRN; Protocol PRN Reason: Anxiety Stop: 09/12/19 21:55 Lorazepam (Ativan) 0.5 mg PO HS CHRISTIE; Protocol Stop: 10/13/19 20:59 Last Admin: 08/18/19 21:09 Dose: Not Given Olanzapine (Zyprexa) 10 mg PO HS CHRISTIE; Protocol Stop: 10/13/19 21:29 Last Admin: 08/18/19 21:09 Dose: Not Given Trazodone HCl (Desyrel) 25 mg PO HS CHRISTIE; Protocol Stop: 10/13/19 20:59 Last Admin: 08/18/19 21:08 Dose: Not Given Zolpidem Tartrate (Ambien) 5 mg PO HS PRN PRN Reason: Insomnia Stop: 10/12/19 21:55 General: demented HEENT: NC/AT, PERRLA, EOMI, anicteric sclerae, throat clear Neck: Supple, No JVD, No thyromegaly, +2 carotid pulse wo bruit, No LAD Cardiovascular: Normal S1, Normal S2, without murmur Abdomen: non-tender, non-distended Extremities: clear Neurological: no change Internal Medicine Assmt/Plan - Assessment Assessment: 1.HYPERLIPIDEMIA. 2.COPD. 3.DJD. 4.PSYCHSIS - Plan Plan: CONTINUE ON CURRENT MEDICATION AND DIET. Nutritional Asmnt/Malnutr-PDOC - Dietary Evaluation Malnutrition Findings (Please click <Entered> for more info): Nutritional Asmnt/Malnutrition Start: 08/18/19 15: 26 Text: Status: Active Freq: Protocol: Document 08/18/19 15:26 KITA (Rec: 08/18/19 15:30 KITA [id number]) Nutritional Asmnt/Malnutrition Patient General Information Nutritional Screening Low Risk Diagnosis Psychosis Pertinent Medical Hx/Surgical Hx Hyperlipidemia, COPD, DJD, Psychosis Subjective Information Pt is a 64-year-old female admitted on 08/08 d/t psychosis. Pt has had poor PO intake since admit date (08/13) , eating 0-25-80% meals, with about 50% refusal to eat or pt asleep. Visited pt today at 3pm, pt fast asleep. Spoke with Nurse donits concerning pt PO intake, recommended letting the MD know about the continued poor intake. Nurse stated pt is very paranoid and has been refusing everything. Left an Ensure with nurse to offer and encourage once pt wakes up. Will follow up tomorrow to see how pt tolerated the supplement. Recommend weight check as pt has poor PO intake >5 days. Anthropometrics HT: 55 WT: 155 LB (70.45 kg) BMI: 25.85 (Overweight) GI/ Skin Integrity GI: WNL, Soft, Flat, Non- tender BM: Not Noted I/O: 480/Not Noted Skin: WNL, Intact Dallin: 21 Diet Order: Regular Estimated Energy Needs: ( Geriatric, CBW) 4659-6430 kcals (25-30 kcals/ kg) 70-85g Pro (1.0-1.2 g/kg) 0907-9186 ml (25-30 ml/kg) Current Diet Order/ Nutrition Support Regular Pertinent Medications Maalox (PRN), Lipitor, Colace Pertinent Labs 08/12: A1c 5.1% Nutritional Hx/Data Height 1.65 m Height (Calculated Centimeters) 165.1 Current Weight (lbs) 70.307 kg Weight (Calculated Kilograms) 70.3 Weight (Calculated Grams) 15152.8 [place] Body Weight 125 LB (56.82 kg) % [place] Body Weight 124 Body Mass Index (BMI) 25.7 Weight Status Overweight GI Symptoms Last BM Not Noted Skin Integrity/Comment: Skin: WNL, Intact Dallin: 21 Current %PO Negligible < 25% Estimated Nutritional Goals BEE in Kcals: Using Current wt Calories/Kcals/Kg 25-30 Kcals Calculated 1760- 2100 Protein: Using Current wt Protein g/k.0-1.2 Protein Calculated 70-85 Fluid: ml 2542-1191 ml (25-30 ml/kg Nutritional Problem 1. Problem Problem Poor PO intake Etiology r/t possible psychosis/poor appetite Signs/Symptoms: aeb PO intake <25% meals. Malnutrition Related to Morbid Obesity Malnutrition related to morbid obesity No Intervention/Recommendation Comments 1. Continue Regular diet as tolerated. 2. RN to encourage improved PO intake. 3. Weight check. Expected Outcomes/Goals Expected Outcomes/Goals 1. PO intake to meet 75% of estimated nutritional needs. 2. Monitor PO intake, wt, nutrition related labs, and skin integrity. 3. F/U as high risk in 2-3 days, 08/20-08/21
--- NOTE | 2019-08-18 22:45 | Progress Notes ---
DATE: The patient seen, chart reviewed, discussed with staff. The patient is currently in the hospital, mute, not responding to me whatsoever. She is awake, but does not talk to me, just stares blankly, currently conserved. We are trying to see what beard of conservatorship we actually have. It is a little bit difficult to interpret. She is conserved in [place], I am not exactly familiar with the rules and regulation, so the delinquency prevention social worker is trying to get more information. Fair sleep, mostly withdrawn. It seems she has a long history of mental illness and is refusing medications and we will continue to monitor, currently pending more information from the delinquency prevention social worker. JOB# [id number]
[2019-08-19] MEDS ORDERED: Haloperidol Lactate 5 mg/mL 1mL Vial IM PRN (06:25)
--- NOTE | 2019-08-19 07:01 | Progress Notes ---
DATE: 08/19/2019 Dr. Veras covering for Dr. Hammond. SUBJECTIVE: Chart reviewed and the patient interviewed. Also discussed the patient's condition with the staff and reviewed records and labs. The patient kept covering her face all the time during my trial to interview the patient and she refused to answer any of the questions and wants to be left alone, was yelling and screaming episodes in between. The patient also is easily agitated and easily irritable. She also is yelling and screaming for no reason. The patient also is refusing to take any medications, but at the same time, the patient is conserved, but she is refusing to take all her medications at this time. ASSESSMENT: The patient is still agitated and paranoid. TREATMENT PLAN: We will change Zyprexa to 5 mg twice a day and also will give the patient Haldol injection, each time the patient refuses to take Zyprexa orally. Hopefully, that will help her to be compliant with taking her medications and may be long-acting injectable might be recommended for the patient later on. At the same time, we will continue to monitor behavior and continue to work on her noncompliance as well as irritability and anger and continue to follow up closely. JOB# [id number]
[2019-08-19] MEDS: Atorvastatin Calcium 10 MG TAB PO SCH (21:04)
--- NOTE | 2019-08-19 23:17 | Internal Medicine Prog Note ---
Internal Medicine Subjective - Subjective Service Date: 08/19/19 Patient seen and examined:: without staff (SHERAQUEL CONFUSED) Patient is:: awake, non-verbal, in bed, confused Per staff patient has:: no adverse event Internal Medicine Objective - Physical Exam Vitals and I&O: Vital Signs Temp 98.2 F 08/19/19 21:19 Pulse 60 08/19/19 21:19 Resp 18 08/19/19 21:19 BP 106/55 08/19/19 21:19 Pulse Ox 99 08/19/19 21:19 Intake & Output 08/19/19 08/19/19 08/20/19 06:59 18:59 06:59 Intake Total 240 800 120 Balance 240 800 120 Intake: Oral 240 800 120 Other: # Voids 2 2 2 # Bowel Movements 0 0 0 Active Medications: Current Medications Al Hydrox/Mg Hydrox/Simethicone (Maalox) 30 ml PO Q6H PRN PRN Reason: GI DISTRESS Stop: 10/12/19 21:27 Atorvastatin Calcium (Lipitor) 10 mg PO HS CHRISTIE; Protocol Stop: 10/13/19 20:59 Last Admin: 08/19/19 21:04 Dose: Not Given Divalproex Sodium (Depakote Dr) 250 mg PO HS CHRISTIE; Protocol Stop: 10/13/19 21:29 Last Admin: 08/19/19 21:04 Dose: Not Given Docusate Sodium (Colace) 250 mg PO DAILY CHRISTIE Stop: 10/13/19 08:59 Last Admin: 08/19/19 09:36 Dose: Not Given Haloperidol Lactate (Haldol) 5 mg IM BID PRN PRN Reason: Agitation Stop: 10/18/19 06:24 Lorazepam (Ativan) 0.5 mg PO Q4HR PRN; Protocol PRN Reason: Anxiety Stop: 09/12/19 21:55 Lorazepam (Ativan) 0.5 mg PO HS CHRISTIE; Protocol Stop: 10/13/19 20:59 Last Admin: 08/19/19 21:04 Dose: Not Given Olanzapine (Zyprexa) 5 mg PO BID CHRISTIE; Protocol Stop: 10/18/19 08:59 Last Admin: 08/19/19 17:16 Dose: 5 mg Trazodone HCl (Desyrel) 25 mg PO HS CHRISTIE; Protocol Stop: 10/13/19 20:59 Last Admin: 08/19/19 21:04 Dose: Not Given Zolpidem Tartrate (Ambien) 5 mg PO HS PRN PRN Reason: Insomnia Stop: 10/12/19 21:55 General: demented HEENT: NC/AT, PERRLA, EOMI, anicteric sclerae, throat clear Neck: Supple, No JVD, No thyromegaly, +2 carotid pulse wo bruit, No LAD Cardiovascular: Normal S1, Normal S2, without murmur Abdomen: non-tender, non-distended Extremities: clear Neurological: no change Internal Medicine Assmt/Plan - Assessment Assessment: 1.HYPERLIPIDEMIA. 2.COPD. 3.DJD. 4.PSYCHSIS - Plan Plan: CONTINUE ON CURRENT MEDICATION AND DIET. Nutritional Asmnt/Malnutr-PDOC - Dietary Evaluation Malnutrition Findings (Please click <Entered> for more info): Nutritional Asmnt/Malnutrition Start: 08/18/19 15: 26 Text: Status: Active Freq: Protocol: Document 08/18/19 15:26 KITA (Rec: 08/18/19 15:30 KITA [id number]) Nutritional Asmnt/Malnutrition Patient General Information Nutritional Screening Low Risk Diagnosis Psychosis Pertinent Medical Hx/Surgical Hx Hyperlipidemia, COPD, DJD, Psychosis Subjective Information Pt is a 64-year-old female admitted on 08/08 d/t psychosis. Pt has had poor PO intake since admit date (08/13) , eating 0-25-80% meals, with about 50% refusal to eat or pt asleep. Visited pt today at 3pm, pt fast asleep. Spoke with Nurse annemarie concerning pt PO intake, recommended letting the MD know about the continued poor intake. Nurse stated pt is very paranoid and has been refusing everything. Left an Ensure with nurse to offer and encourage once pt wakes up. Will follow up tomorrow to see how pt tolerated the supplement. Recommend weight check as pt has poor PO intake >5 days. Anthropometrics HT: 55 WT: 155 LB (70.45 kg) BMI: 25.85 (Overweight) GI/ Skin Integrity GI: WNL, Soft, Flat, Non- tender BM: Not Noted I/O: 480/Not Noted Skin: WNL, Intact Dallin: 21 Diet Order: Regular Estimated Energy Needs: ( Geriatric, CBW) 2676-6630 kcals (25-30 kcals/ kg) 70-85g Pro (1.0-1.2 g/kg) 9898-4392 ml (25-30 ml/kg) Current Diet Order/ Nutrition Support Regular Pertinent Medications Maalox (PRN), Lipitor, Colace Pertinent Labs 08/12: A1c 5.1% Nutritional Hx/Data Height 1.65 m Height (Calculated Centimeters) 165.1 Current Weight (lbs) 70.307 kg Weight (Calculated Kilograms) 70.3 Weight (Calculated Grams) 25681.8 [place] Body Weight 125 LB (56.82 kg) % [place] Body Weight 124 Body Mass Index (BMI) 25.7 Weight Status Overweight GI Symptoms Last BM Not Noted Skin Integrity/Comment: Skin: WNL, Intact Dallin: 21 Current %PO Negligible < 25% Estimated Nutritional Goals BEE in Kcals: Using Current wt Calories/Kcals/Kg 25-30 Kcals Calculated 1760- 2100 Protein: Using Current wt Protein g/k.0-1.2 Protein Calculated 70-85 Fluid: ml 0026-0253 ml (25-30 ml/kg Nutritional Problem 1. Problem Problem Poor PO intake Etiology r/t possible psychosis/poor appetite Signs/Symptoms: aeb PO intake <25% meals. Malnutrition Related to Morbid Obesity Malnutrition related to morbid obesity No Intervention/Recommendation Comments 1. Continue Regular diet as tolerated. 2. RN to encourage improved PO intake. 3. Weight check. Expected Outcomes/Goals Expected Outcomes/Goals 1. PO intake to meet 75% of estimated nutritional needs. 2. Monitor PO intake, wt, nutrition related labs, and skin integrity. 3. F/U as high risk in 2-3 days, 08/20-08/21
--- NOTE | 2019-08-20 15:41 | Internal Medicine Prog Note ---
Internal Medicine Subjective - Subjective Service Date: 08/20/19 Patient seen and examined:: without staff (CONFUSED) Patient is:: awake, non-verbal, in bed, confused Per staff patient has:: no adverse event Internal Medicine Objective - Physical Exam Vitals and I&O: Vital Signs Temp 98.2 F 08/19/19 21:19 Pulse 60 08/19/19 21:19 Resp 18 08/20/19 08:00 BP 106/55 08/19/19 21:19 Pulse Ox 99 08/19/19 21:19 Intake & Output 08/19/19 08/20/19 08/20/19 18:59 06:59 18:59 Intake Total 800 120 120 Balance 800 120 120 Intake: Oral 800 120 120 Other: # Voids 2 2 2 # Bowel Movements 0 0 0 Active Medications: Current Medications Al Hydrox/Mg Hydrox/Simethicone (Maalox) 30 ml PO Q6H PRN PRN Reason: GI DISTRESS Stop: 10/12/19 21:27 Atorvastatin Calcium (Lipitor) 10 mg PO HS CHRISTIE; Protocol Stop: 10/13/19 20:59 Last Admin: 08/19/19 21:04 Dose: Not Given Divalproex Sodium (Depakote Dr) 250 mg PO HS CHRISTIE; Protocol Stop: 10/13/19 21:29 Last Admin: 08/19/19 21:04 Dose: Not Given Docusate Sodium (Colace) 250 mg PO DAILY CHRISTIE Stop: 10/13/19 08:59 Last Admin: 08/20/19 09:28 Dose: Not Given Haloperidol Lactate (Haldol) 5 mg IM BID PRN PRN Reason: Agitation Stop: 10/18/19 06:24 Lorazepam (Ativan) 0.5 mg PO Q4HR PRN; Protocol PRN Reason: Anxiety Stop: 09/12/19 21:55 Lorazepam (Ativan) 0.5 mg PO HS CHRISTIE; Protocol Stop: 10/13/19 20:59 Last Admin: 08/19/19 21:04 Dose: Not Given Olanzapine (Zyprexa) 5 mg PO BID CHRISTIE; Protocol Stop: 10/18/19 08:59 Last Admin: 08/20/19 09:28 Dose: 5 mg Trazodone HCl (Desyrel) 25 mg PO HS CHRISTIE; Protocol Stop: 10/13/19 20:59 Last Admin: 08/19/19 21:04 Dose: Not Given Zolpidem Tartrate (Ambien) 5 mg PO HS PRN PRN Reason: Insomnia Stop: 10/12/19 21:55 General: demented HEENT: NC/AT, PERRLA, EOMI, anicteric sclerae, throat clear Neck: Supple, No JVD, No thyromegaly, +2 carotid pulse wo bruit, No LAD Cardiovascular: Normal S1, Normal S2, without murmur Abdomen: non-tender, non-distended Extremities: clear Neurological: no change Internal Medicine Assmt/Plan - Assessment Assessment: 1.HYPERLIPIDEMIA. 2.COPD. 3.DJD. 4.PSYCHSIS - Plan Plan: CONTINUE ON CURRENT MEDICATION AND DIET. Nutritional Asmnt/Malnutr-PDOC - Dietary Evaluation Malnutrition Findings (Please click <Entered> for more info): Nutritional Asmnt/Malnutrition Start: 08/18/19 15: 26 Text: Status: Active Freq: Protocol: Document 08/18/19 15:26 KITA (Rec: 08/18/19 15:30 KITA [id number]) Nutritional Asmnt/Malnutrition Patient General Information Nutritional Screening Low Risk Diagnosis Psychosis Pertinent Medical Hx/Surgical Hx Hyperlipidemia, COPD, DJD, Psychosis Subjective Information Pt is a 64-year-old female admitted on 08/08 d/t psychosis. Pt has had poor PO intake since admit date (08/13) , eating 0-25-80% meals, with about 50% refusal to eat or pt asleep. Visited pt today at 3pm, pt fast asleep. Spoke with Nurse donits concerning pt PO intake, recommended letting the MD know about the continued poor intake. Nurse stated pt is very paranoid and has been refusing everything. Left an Ensure with nurse to offer and encourage once pt wakes up. Will follow up tomorrow to see how pt tolerated the supplement. Recommend weight check as pt has poor PO intake >5 days. Anthropometrics HT: 55 WT: 155 LB (70.45 kg) BMI: 25.85 (Overweight) GI/ Skin Integrity GI: WNL, Soft, Flat, Non- tender BM: Not Noted I/O: 480/Not Noted Skin: WNL, Intact Dallin: 21 Diet Order: Regular Estimated Energy Needs: ( Geriatric, CBW) 2480-2811 kcals (25-30 kcals/ kg) 70-85g Pro (1.0-1.2 g/kg) 4785-7057 ml (25-30 ml/kg) Current Diet Order/ Nutrition Support Regular Pertinent Medications Maalox (PRN), Lipitor, Colace Pertinent Labs 08/12: A1c 5.1% Nutritional Hx/Data Height 1.65 m Height (Calculated Centimeters) 165.1 Current Weight (lbs) 70.307 kg Weight (Calculated Kilograms) 70.3 Weight (Calculated Grams) 83048.8 [place] Body Weight 125 LB (56.82 kg) % [place] Body Weight 124 Body Mass Index (BMI) 25.7 Weight Status Overweight GI Symptoms Last BM Not Noted Skin Integrity/Comment: Skin: WNL, Intact Dallin: 21 Current %PO Negligible < 25% Estimated Nutritional Goals BEE in Kcals: Using Current wt Calories/Kcals/Kg 25-30 Kcals Calculated 1760- 2100 Protein: Using Current wt Protein g/k.0-1.2 Protein Calculated 70-85 Fluid: ml 4699-4587 ml (25-30 ml/kg Nutritional Problem 1. Problem Problem Poor PO intake Etiology r/t possible psychosis/poor appetite Signs/Symptoms: aeb PO intake <25% meals. Malnutrition Related to Morbid Obesity Malnutrition related to morbid obesity No Intervention/Recommendation Comments 1. Continue Regular diet as tolerated. 2. RN to encourage improved PO intake. 3. Weight check. Expected Outcomes/Goals Expected Outcomes/Goals 1. PO intake to meet 75% of estimated nutritional needs. 2. Monitor PO intake, wt, nutrition related labs, and skin integrity. 3. F/U as high risk in 2-3 days, 08/20-08/21
[2019-08-20] MEDS: Atorvastatin Calcium 10 MG TAB PO SCH (21:19)
--- NOTE | 2019-08-21 18:08 | Internal Medicine Prog Note ---
Internal Medicine Subjective - Subjective Service Date: 08/21/19 Patient seen and examined:: without staff (SHE IS CONFUSED) Patient is:: awake, non-verbal, in bed, confused Per staff patient has:: no adverse event Internal Medicine Objective - Physical Exam Vitals and I&O: Vital Signs Temp 98.6 F 08/21/19 14:44 Pulse 68 08/21/19 14:44 Resp 18 08/21/19 14:44 BP 100/56 08/21/19 14:44 Pulse Ox 100 08/21/19 14:44 Intake & Output 08/20/19 08/21/19 08/21/19 18:59 06:59 18:59 Intake Total 240 240 Balance 240 240 Intake: Oral 240 240 Other: # Voids 2 2 # Bowel Movements 0 0 Active Medications: Current Medications Al Hydrox/Mg Hydrox/Simethicone (Maalox) 30 ml PO Q6H PRN PRN Reason: GI DISTRESS Stop: 10/12/19 21:27 Atorvastatin Calcium (Lipitor) 10 mg PO HS CHRISTIE; Protocol Stop: 10/13/19 20:59 Last Admin: 08/20/19 21:19 Dose: Not Given Divalproex Sodium (Depakote Dr) 250 mg PO HS CHRISTIE; Protocol Stop: 10/13/19 21:29 Last Admin: 08/20/19 21:19 Dose: Not Given Docusate Sodium (Colace) 250 mg PO DAILY CHRISTIE Stop: 10/13/19 08:59 Last Admin: 08/21/19 09:03 Dose: Not Given Haloperidol Lactate (Haldol) 5 mg IM BID PRN PRN Reason: Agitation Stop: 10/18/19 06:24 Lorazepam (Ativan) 0.5 mg PO Q4HR PRN; Protocol PRN Reason: Anxiety Stop: 09/12/19 21:55 Lorazepam (Ativan) 0.5 mg PO HS CHRISTIE; Protocol Stop: 10/13/19 20:59 Last Admin: 08/20/19 21:19 Dose: Not Given Olanzapine (Zyprexa) 5 mg PO BID CHRISTIE; Protocol Stop: 10/18/19 08:59 Last Admin: 08/21/19 17:01 Dose: 5 mg Trazodone HCl (Desyrel) 25 mg PO HS CHRISTIE; Protocol Stop: 10/13/19 20:59 Last Admin: 08/20/19 21:19 Dose: Not Given Zolpidem Tartrate (Ambien) 5 mg PO HS PRN PRN Reason: Insomnia Stop: 10/12/19 21:55 General: demented HEENT: NC/AT, PERRLA, EOMI, anicteric sclerae, throat clear Neck: Supple, No JVD, No thyromegaly, +2 carotid pulse wo bruit, No LAD Cardiovascular: Normal S1, Normal S2, without murmur Abdomen: non-tender, non-distended Extremities: clear Neurological: no change Internal Medicine Assmt/Plan - Assessment Assessment: 1.HYPERLIPIDEMIA. 2.COPD. 3.DJD. 4.PSYCHSIS - Plan Plan: CONTINUE ON CURRENT MEDICATION AND DIET. Nutritional Asmnt/Malnutr-PDOC - Dietary Evaluation Malnutrition Findings (Please click <Entered> for more info): Nutritional Asmnt/Malnutrition Start: 08/18/19 15: 26 Text: Status: Complete Freq: Protocol: Document 08/18/19 15:26 KITA (Rec: 08/18/19 15:30 KITA [id number]) Nutritional Asmnt/Malnutrition Patient General Information Nutritional Screening Low Risk Diagnosis Psychosis Pertinent Medical Hx/Surgical Hx Hyperlipidemia, COPD, DJD, Psychosis Subjective Information Pt is a 64-year-old female admitted on 08/08 d/t psychosis. Pt has had poor PO intake since admit date (08/13) , eating 0-25-80% meals, with about 50% refusal to eat or pt asleep. Visited pt today at 3pm, pt fast asleep. Spoke with Nurse donits concerning pt PO intake, recommended letting the MD know about the continued poor intake. Nurse stated pt is very paranoid and has been refusing everything. Left an Ensure with nurse to offer and encourage once pt wakes up. Will follow up tomorrow to see how pt tolerated the supplement. Recommend weight check as pt has poor PO intake >5 days. Anthropometrics HT: 55 WT: 155 LB (70.45 kg) BMI: 25.85 (Overweight) GI/ Skin Integrity GI: WNL, Soft, Flat, Non- tender BM: Not Noted I/O: 480/Not Noted Skin: WNL, Intact Dallin: 21 Diet Order: Regular Estimated Energy Needs: ( Geriatric, CBW) 3862-8685 kcals (25-30 kcals/ kg) 70-85g Pro (1.0-1.2 g/kg) 2143-4581 ml (25-30 ml/kg) Current Diet Order/ Nutrition Support Regular Pertinent Medications Maalox (PRN), Lipitor, Colace Pertinent Labs 08/12: A1c 5.1% Nutritional Hx/Data Height 1.65 m Height (Calculated Centimeters) 165.1 Current Weight (lbs) 70.307 kg Weight (Calculated Kilograms) 70.3 Weight (Calculated Grams) 15648.8 [place] Body Weight 125 LB (56.82 kg) % [place] Body Weight 124 Body Mass Index (BMI) 25.7 Weight Status Overweight GI Symptoms Last BM Not Noted Skin Integrity/Comment: Skin: WNL, Intact Dallin: 21 Current %PO Negligible < 25% Estimated Nutritional Goals BEE in Kcals: Using Current wt Calories/Kcals/Kg 25-30 Kcals Calculated 1760- 2100 Protein: Using Current wt Protein g/k.0-1.2 Protein Calculated 70-85 Fluid: ml 9104-3485 ml (25-30 ml/kg Nutritional Problem 1. Problem Problem Poor PO intake Etiology r/t possible psychosis/poor appetite Signs/Symptoms: aeb PO intake <25% meals. Malnutrition Related to Morbid Obesity Malnutrition related to morbid obesity No Intervention/Recommendation Comments 1. Continue Regular diet as tolerated. 2. RN to encourage improved PO intake. 3. Weight check. Expected Outcomes/Goals Expected Outcomes/Goals 1. PO intake to meet 75% of estimated nutritional needs. 2. Monitor PO intake, wt, nutrition related labs, and skin integrity. 3. F/U as high risk in 2-3 days, 08/20-08/21
[2019-08-21] MEDS: Atorvastatin Calcium 10 MG TAB PO SCH (20:51)
--- NOTE | 2019-08-22 19:09 | Internal Medicine Prog Note ---
Internal Medicine Subjective - Subjective Service Date: 08/22/19 Patient seen and examined:: without staff (SHE IS QUITE) Patient is:: awake, non-verbal, in bed, confused Per staff patient has:: no adverse event Internal Medicine Objective - Physical Exam Vitals and I&O: Vital Signs Temp 97.6 F 08/22/19 14:00 Pulse 70 08/22/19 14:00 Resp 18 08/22/19 14:00 BP 115/67 08/22/19 14:00 Pulse Ox 96 08/22/19 14:00 Intake & Output 08/22/19 08/22/19 08/23/19 06:59 18:59 06:59 Intake Total 300 420 Balance 300 420 Intake: Oral 300 420 Other: # Voids 1 3 # Bowel Movements 0 1 Active Medications: Current Medications Al Hydrox/Mg Hydrox/Simethicone (Maalox) 30 ml PO Q6H PRN PRN Reason: GI DISTRESS Stop: 10/12/19 21:27 Atorvastatin Calcium (Lipitor) 10 mg PO HS CHRISTIE; Protocol Stop: 10/13/19 20:59 Last Admin: 08/21/19 20:51 Dose: Not Given Divalproex Sodium (Depakote Dr) 250 mg PO HS CHRISTIE; Protocol Stop: 10/13/19 21:29 Last Admin: 08/21/19 20:51 Dose: Not Given Docusate Sodium (Colace) 250 mg PO DAILY CHRISTIE Stop: 10/13/19 08:59 Last Admin: 08/22/19 09:06 Dose: 250 mg Haloperidol Lactate (Haldol) 5 mg IM BID PRN PRN Reason: Agitation Stop: 10/18/19 06:24 Lorazepam (Ativan) 0.5 mg PO Q4HR PRN; Protocol PRN Reason: Anxiety Stop: 09/12/19 21:55 Lorazepam (Ativan) 0.5 mg PO HS CHRISTIE; Protocol Stop: 10/13/19 20:59 Last Admin: 08/21/19 20:51 Dose: Not Given Olanzapine (Zyprexa) 5 mg PO BID CHRISTIE; Protocol Stop: 10/18/19 08:59 Last Admin: 08/22/19 16:54 Dose: 5 mg Trazodone HCl (Desyrel) 25 mg PO HS CHRISTIE; Protocol Stop: 10/13/19 20:59 Last Admin: 08/21/19 20:51 Dose: Not Given Zolpidem Tartrate (Ambien) 5 mg PO HS PRN PRN Reason: Insomnia Stop: 10/12/19 21:55 General: demented HEENT: NC/AT, PERRLA, EOMI, anicteric sclerae, throat clear Neck: Supple, No JVD, No thyromegaly, +2 carotid pulse wo bruit, No LAD Cardiovascular: Normal S1, Normal S2, without murmur Abdomen: non-tender, non-distended Extremities: clear Neurological: no change Internal Medicine Assmt/Plan - Assessment Assessment: 1.HYPERLIPIDEMIA. 2.COPD. 3.DJD. 4.PSYCHSIS - Plan Plan: CONTINUE ON CURRENT MEDICATION AND DIET. Nutritional Asmnt/Malnutr-PDOC - Dietary Evaluation Malnutrition Findings (Please click <Entered> for more info): Nutritional Asmnt/Malnutrition Start: 08/18/19 15: 26 Text: Status: Complete Freq: Protocol: Document 08/18/19 15:26 KITA (Rec: 08/18/19 15:30 KITA [id number]) Nutritional Asmnt/Malnutrition Patient General Information Nutritional Screening Low Risk Diagnosis Psychosis Pertinent Medical Hx/Surgical Hx Hyperlipidemia, COPD, DJD, Psychosis Subjective Information Pt is a 64-year-old female admitted on 08/08 d/t psychosis. Pt has had poor PO intake since admit date (08/13) , eating 0-25-80% meals, with about 50% refusal to eat or pt asleep. Visited pt today at 3pm, pt fast asleep. Spoke with Nurse donits concerning pt PO intake, recommended letting the MD know about the continued poor intake. Nurse stated pt is very paranoid and has been refusing everything. Left an Ensure with nurse to offer and encourage once pt wakes up. Will follow up tomorrow to see how pt tolerated the supplement. Recommend weight check as pt has poor PO intake >5 days. Anthropometrics HT: 55 WT: 155 LB (70.45 kg) BMI: 25.85 (Overweight) GI/ Skin Integrity GI: WNL, Soft, Flat, Non- tender BM: Not Noted I/O: 480/Not Noted Skin: WNL, Intact Dallin: 21 Diet Order: Regular Estimated Energy Needs: ( Geriatric, CBW) 7078-4401 kcals (25-30 kcals/ kg) 70-85g Pro (1.0-1.2 g/kg) 1583-2240 ml (25-30 ml/kg) Current Diet Order/ Nutrition Support Regular Pertinent Medications Maalox (PRN), Lipitor, Colace Pertinent Labs 08/12: A1c 5.1% Nutritional Hx/Data Height 1.65 m Height (Calculated Centimeters) 165.1 Current Weight (lbs) 70.307 kg Weight (Calculated Kilograms) 70.3 Weight (Calculated Grams) 26570.8 [place] Body Weight 125 LB (56.82 kg) % [place] Body Weight 124 Body Mass Index (BMI) 25.7 Weight Status Overweight GI Symptoms Last BM Not Noted Skin Integrity/Comment: Skin: WNL, Intact Dallin: 21 Current %PO Negligible < 25% Estimated Nutritional Goals BEE in Kcals: Using Current wt Calories/Kcals/Kg 25-30 Kcals Calculated 1760- 2100 Protein: Using Current wt Protein g/k.0-1.2 Protein Calculated 70-85 Fluid: ml 8079-0387 ml (25-30 ml/kg Nutritional Problem 1. Problem Problem Poor PO intake Etiology r/t possible psychosis/poor appetite Signs/Symptoms: aeb PO intake <25% meals. Malnutrition Related to Morbid Obesity Malnutrition related to morbid obesity No Intervention/Recommendation Comments 1. Continue Regular diet as tolerated. 2. RN to encourage improved PO intake. 3. Weight check. Expected Outcomes/Goals Expected Outcomes/Goals 1. PO intake to meet 75% of estimated nutritional needs. 2. Monitor PO intake, wt, nutrition related labs, and skin integrity. 3. F/U as high risk in 2-3 days, 08/20-08/21
[2019-08-22] MEDS: Atorvastatin Calcium 10 MG TAB PO SCH (21:29)
--- NOTE | 2019-08-22 22:28 | Progress Notes ---
DATE: 08/22/2019 SUBJECTIVE: The patient is still agitated, aggressive outbursts, not wanting to take her medications, conserved. We are currently waiting upon the people from [facility], the social workers down there to give us paperwork to allow us to medicate her. Ongoing symptoms, safety concerns, irritable, still mute, aggressive towards staff. JOB# [id number]
--- NOTE | 2019-08-23 20:24 | Internal Medicine Prog Note ---
Internal Medicine Subjective - Subjective Service Date: 08/23/19 Patient seen and examined:: without staff (SHE IS CONFUSED) Patient is:: awake, non-verbal, in bed, confused Per staff patient has:: no adverse event Internal Medicine Objective - Physical Exam Vitals and I&O: Vital Signs Temp 97.1 F 08/23/19 15:29 Pulse 76 08/23/19 15:29 Resp 18 08/23/19 15:29 BP 107/62 08/23/19 15:29 Pulse Ox 94 08/23/19 15:29 Intake & Output 08/23/19 08/23/19 08/24/19 06:59 18:59 06:59 Intake Total 120 480 Balance 120 480 Intake: Oral 120 480 Other: # Voids 3 Active Medications: Current Medications Al Hydrox/Mg Hydrox/Simethicone (Maalox) 30 ml PO Q6H PRN PRN Reason: GI DISTRESS Stop: 10/12/19 21:27 Atorvastatin Calcium (Lipitor) 10 mg PO HS CHRISTIE; Protocol Stop: 10/13/19 20:59 Last Admin: 08/22/19 21:29 Dose: 10 mg Divalproex Sodium (Depakote Dr) 250 mg PO HS CHRISTIE; Protocol Stop: 10/13/19 21:29 Last Admin: 08/22/19 21:29 Dose: 250 mg Docusate Sodium (Colace) 250 mg PO DAILY CHRISTIE Stop: 10/13/19 08:59 Last Admin: 08/23/19 09:16 Dose: Not Given Haloperidol Lactate (Haldol) 5 mg IM BID PRN PRN Reason: Agitation Stop: 10/18/19 06:24 Lorazepam (Ativan) 0.5 mg PO Q4HR PRN; Protocol PRN Reason: Anxiety Stop: 09/12/19 21:55 Lorazepam (Ativan) 0.5 mg PO HS CHRISTIE; Protocol Stop: 10/13/19 20:59 Last Admin: 08/22/19 21:29 Dose: 0.5 mg Olanzapine (Zyprexa) 10 mg PO HS CHRISTIE; Protocol Stop: 10/22/19 20:59 Trazodone HCl (Desyrel) 25 mg PO HS CHRISTIE; Protocol Stop: 10/13/19 20:59 Last Admin: 08/22/19 21:29 Dose: 25 mg Zolpidem Tartrate (Ambien) 5 mg PO HS PRN PRN Reason: Insomnia Stop: 10/12/19 21:55 General: demented HEENT: NC/AT, PERRLA, EOMI, anicteric sclerae, throat clear Neck: Supple, No JVD, No thyromegaly, +2 carotid pulse wo bruit, No LAD Cardiovascular: Normal S1, Normal S2, without murmur Abdomen: non-tender, non-distended Extremities: clear Neurological: no change Internal Medicine Assmt/Plan - Assessment Assessment: 1.HYPERLIPIDEMIA. 2.COPD. 3.DJD. 4.PSYCHSIS - Plan Plan: CONTINUE ON CURRENT MEDICATION AND DIET. Nutritional Asmnt/Malnutr-PDOC - Dietary Evaluation Malnutrition Findings (Please click <Entered> for more info): Nutritional Asmnt/Malnutrition Start: 08/18/19 15: 26 Text: Status: Complete Freq: Protocol: Document 08/18/19 15:26 KITA (Rec: 08/18/19 15:30 KITA [id number]) Nutritional Asmnt/Malnutrition Patient General Information Nutritional Screening Low Risk Diagnosis Psychosis Pertinent Medical Hx/Surgical Hx Hyperlipidemia, COPD, DJD, Psychosis Subjective Information Pt is a 64-year-old female admitted on 08/08 d/t psychosis. Pt has had poor PO intake since admit date (08/13) , eating 0-25-80% meals, with about 50% refusal to eat or pt asleep. Visited pt today at 3pm, pt fast asleep. Spoke with Nurse donits concerning pt PO intake, recommended letting the MD know about the continued poor intake. Nurse stated pt is very paranoid and has been refusing everything. Left an Ensure with nurse to offer and encourage once pt wakes up. Will follow up tomorrow to see how pt tolerated the supplement. Recommend weight check as pt has poor PO intake >5 days. Anthropometrics HT: 55 WT: 155 LB (70.45 kg) BMI: 25.85 (Overweight) GI/ Skin Integrity GI: WNL, Soft, Flat, Non- tender BM: Not Noted I/O: 480/Not Noted Skin: WNL, Intact Dallin: 21 Diet Order: Regular Estimated Energy Needs: ( Geriatric, CBW) 6548-7273 kcals (25-30 kcals/ kg) 70-85g Pro (1.0-1.2 g/kg) 6996-5108 ml (25-30 ml/kg) Current Diet Order/ Nutrition Support Regular Pertinent Medications Maalox (PRN), Lipitor, Colace Pertinent Labs 08/12: A1c 5.1% Nutritional Hx/Data Height 1.65 m Height (Calculated Centimeters) 165.1 Current Weight (lbs) 70.307 kg Weight (Calculated Kilograms) 70.3 Weight (Calculated Grams) 19689.8 [place] Body Weight 125 LB (56.82 kg) % [place] Body Weight 124 Body Mass Index (BMI) 25.7 Weight Status Overweight GI Symptoms Last BM Not Noted Skin Integrity/Comment: Skin: WNL, Intact Dallin: 21 Current %PO Negligible < 25% Estimated Nutritional Goals BEE in Kcals: Using Current wt Calories/Kcals/Kg 25-30 Kcals Calculated 1760- 2100 Protein: Using Current wt Protein g/k.0-1.2 Protein Calculated 70-85 Fluid: ml 3006-1849 ml (25-30 ml/kg Nutritional Problem 1. Problem Problem Poor PO intake Etiology r/t possible psychosis/poor appetite Signs/Symptoms: aeb PO intake <25% meals. Malnutrition Related to Morbid Obesity Malnutrition related to morbid obesity No Intervention/Recommendation Comments 1. Continue Regular diet as tolerated. 2. RN to encourage improved PO intake. 3. Weight check. Expected Outcomes/Goals Expected Outcomes/Goals 1. PO intake to meet 75% of estimated nutritional needs. 2. Monitor PO intake, wt, nutrition related labs, and skin integrity. 3. F/U as high risk in 2-3 days, 08/20-08/21
[2019-08-23] MEDS: Atorvastatin Calcium 10 MG TAB PO SCH (21:05)
--- NOTE | 2019-08-24 08:04 | Progress Notes ---
DATE: 08/23/2019 SUBJECTIVE: The patient is very confused, refusing to speak with me. Staff noting she is easily agitated, episodes of crying, yelling loud, needing prompting. She is taking her medications, sometimes she took her medications at night, for example, refusing to speak with me. Ongoing symptoms, safety concerns. I will increase her medications to nighttime dosing perhaps she has a preference to take her medications at night time. Currently pending on the conservator to okay, medicating her against her will. JOB# [id number]
--- NOTE | 2019-08-24 08:04 | Progress Notes ---
DATE: 08/21/2019 SUBJECTIVE: Chart reviewed and the patient interviewed. Also discussed the patient's condition with the staff, and reviewed records and labs. The patient is still having episodes of yelling every now and then for no apparent reason. The patient also is still suspicious and paranoid. She also is having mood swings and still having difficulty with being irritable and agitated. Otherwise, the patient is slightly easier to redirect. The patient is still refusing to take medications for no apparent reason; I continued to discuss with her the reasons for that, but she has no explanation. At the same time, we will continue working on her mood and continue to follow up. JOB# [id number]
--- NOTE | 2019-08-24 08:04 | Progress Notes ---
DATE: 08/20/2019 SUBJECTIVE: Chart was reviewed and the patient interviewed. Also discussed the patient's condition with the staff and reviewed records and labs. The patient continued to be easily agitated, and she is still in irritable mood. The patient also is still refusing to answer any of my questions. The patient also is still restless and she still has episodes of yelling and screaming for no reason. The patient also was refusing to take her medications, but medications changed to be given twice a day. So, continue to work on her compliance with taking medications. At the same time, we will continue monitoring her behavior and her condition closely. Also, continue working on her severe irritability and severe mood swings. [facility]# [id number]
--- NOTE | 2019-08-24 20:55 | Internal Medicine Prog Note ---
Internal Medicine Subjective - Subjective Service Date: 08/24/19 Patient seen and examined:: without staff (SHE IS CONFUSED) Patient is:: awake, non-verbal, in bed, confused Per staff patient has:: no adverse event Internal Medicine Objective - Physical Exam Vitals and I&O: Vital Signs Temp 97.6 F 08/23/19 20:00 Pulse 67 08/23/19 20:00 Resp 19 08/24/19 08:00 BP 110/61 08/23/19 20:00 Pulse Ox 94 08/23/19 20:00 Intake & Output 08/24/19 08/24/19 08/25/19 06:59 18:59 06:59 Intake Total 120 440 Balance 120 440 Intake: Oral 120 440 Other: # Voids 3 3 # Bowel Movements 0 Active Medications: Current Medications Al Hydrox/Mg Hydrox/Simethicone (Maalox) 30 ml PO Q6H PRN PRN Reason: GI DISTRESS Stop: 10/12/19 21:27 Atorvastatin Calcium (Lipitor) 10 mg PO HS CHRISTIE; Protocol Stop: 10/13/19 20:59 Last Admin: 08/23/19 21:05 Dose: 10 mg Divalproex Sodium (Depakote Dr) 250 mg PO HS CHRISTIE; Protocol Stop: 10/13/19 21:29 Last Admin: 08/23/19 21:05 Dose: 250 mg Docusate Sodium (Colace) 250 mg PO DAILY CHRISTIE Stop: 10/13/19 08:59 Last Admin: 08/24/19 09:35 Dose: Not Given Haloperidol Lactate (Haldol) 5 mg IM BID PRN PRN Reason: Agitation Stop: 10/18/19 06:24 Lorazepam (Ativan) 0.5 mg PO Q4HR PRN; Protocol PRN Reason: Anxiety Stop: 09/12/19 21:55 Lorazepam (Ativan) 0.5 mg PO HS CHRISTIE; Protocol Stop: 10/13/19 20:59 Last Admin: 08/23/19 21:06 Dose: 0.5 mg Olanzapine (Zyprexa) 10 mg PO HS CHRISTIE; Protocol Stop: 10/22/19 20:59 Last Admin: 08/23/19 21:06 Dose: 10 mg Trazodone HCl (Desyrel) 25 mg PO HS CHRISTIE; Protocol Stop: 10/13/19 20:59 Last Admin: 08/23/19 21:06 Dose: 25 mg Zolpidem Tartrate (Ambien) 5 mg PO HS PRN PRN Reason: Insomnia Stop: 10/12/19 21:55 General: demented HEENT: NC/AT, PERRLA, EOMI, anicteric sclerae, throat clear Neck: Supple, No JVD, No thyromegaly, +2 carotid pulse wo bruit, No LAD Cardiovascular: Normal S1, Normal S2, without murmur Abdomen: non-tender, non-distended Extremities: clear Neurological: no change Internal Medicine Assmt/Plan - Assessment Assessment: 1.HYPERLIPIDEMIA. 2.COPD. 3.DJD. 4.PSYCHSIS - Plan Plan: CONTINUE ON CURRENT MEDICATION AND DIET. Nutritional Asmnt/Malnutr-PDOC - Dietary Evaluation Malnutrition Findings (Please click <Entered> for more info): Nutritional Asmnt/Malnutrition Start: 08/18/19 15: 26 Text: Status: Complete Freq: Protocol: Document 08/18/19 15:26 KITA (Rec: 08/18/19 15:30 KITA [id number]) Nutritional Asmnt/Malnutrition Patient General Information Nutritional Screening Low Risk Diagnosis Psychosis Pertinent Medical Hx/Surgical Hx Hyperlipidemia, COPD, DJD, Psychosis Subjective Information Pt is a 64-year-old female admitted on 08/08 d/t psychosis. Pt has had poor PO intake since admit date (08/13) , eating 0-25-80% meals, with about 50% refusal to eat or pt asleep. Visited pt today at 3pm, pt fast asleep. Spoke with Nurse annemarie concerning pt PO intake, recommended letting the MD know about the continued poor intake. Nurse stated pt is very paranoid and has been refusing everything. Left an Ensure with nurse to offer and encourage once pt wakes up. Will follow up tomorrow to see how pt tolerated the supplement. Recommend weight check as pt has poor PO intake >5 days. Anthropometrics HT: 55 WT: 155 LB (70.45 kg) BMI: 25.85 (Overweight) GI/ Skin Integrity GI: WNL, Soft, Flat, Non- tender BM: Not Noted I/O: 480/Not Noted Skin: WNL, Intact Dallin: 21 Diet Order: Regular Estimated Energy Needs: ( Geriatric, CBW) 1079-2388 kcals (25-30 kcals/ kg) 70-85g Pro (1.0-1.2 g/kg) 8222-4703 ml (25-30 ml/kg) Current Diet Order/ Nutrition Support Regular Pertinent Medications Maalox (PRN), Lipitor, Colace Pertinent Labs 08/12: A1c 5.1% Nutritional Hx/Data Height 1.65 m Height (Calculated Centimeters) 165.1 Current Weight (lbs) 70.307 kg Weight (Calculated Kilograms) 70.3 Weight (Calculated Grams) 11376.8 [place] Body Weight 125 LB (56.82 kg) % [place] Body Weight 124 Body Mass Index (BMI) 25.7 Weight Status Overweight GI Symptoms Last BM Not Noted Skin Integrity/Comment: Skin: WNL, Intact Dallin: 21 Current %PO Negligible < 25% Estimated Nutritional Goals BEE in Kcals: Using Current wt Calories/Kcals/Kg 25-30 Kcals Calculated 1760- 2100 Protein: Using Current wt Protein g/k.0-1.2 Protein Calculated 70-85 Fluid: ml 2050-2189 ml (25-30 ml/kg Nutritional Problem 1. Problem Problem Poor PO intake Etiology r/t possible psychosis/poor appetite Signs/Symptoms: aeb PO intake <25% meals. Malnutrition Related to Morbid Obesity Malnutrition related to morbid obesity No Intervention/Recommendation Comments 1. Continue Regular diet as tolerated. 2. RN to encourage improved PO intake. 3. Weight check. Expected Outcomes/Goals Expected Outcomes/Goals 1. PO intake to meet 75% of estimated nutritional needs. 2. Monitor PO intake, wt, nutrition related labs, and skin integrity. 3. F/U as high risk in 2-3 days, 08/20-08/21
[2019-08-24] MEDS: Atorvastatin Calcium 10 MG TAB PO SCH (20:59)
--- NOTE | 2019-08-24 23:13 | Progress Notes ---
DATE: 08/24/2019 SUBJECTIVE: The patient continues to refuse care, treatment conserved, currently pending information from the conservator down in [place] for medication consent. Social work is in touch with the conservator. The patient is agitated, refusing treatment, very withdrawn, mostly keeps to self. I will coordinate care with healthcare social worker to see if we have information from the [facility]. JOB# [id number]
[2019-08-25] MEDS: Atorvastatin Calcium 10 MG TAB PO SCH (20:09)
--- NOTE | 2019-08-26 01:17 | Progress Notes ---
DATE: 08/25/2019 SUBJECTIVE: The patient remains aggressive, agitated, bizarre, refusing to speak with me, seen, would not talk to me whatsoever, refusing medications. We are still waiting on the social workers and the conservator from [place]. The [place] social worker aide is to get in touch with us to allow us to medicate her against her will so that we are not imposing on her rights. PLAN: We will continue to monitor. I did touch base with [employer]el[employer] director social service. JOB# [id number]
--- NOTE | 2019-08-26 10:58 | Progress Notes ---
DATE: 08/26/2019 SUBJECTIVE: The patient in the hospital, somewhat more med compliant, still pending. Information from the [facility] social workers. The patient is still unruly, refusing to talk to me, bizarre, selectively mute, ongoing symptoms, psychotic symptoms, mumbling to self, responding to internal stimuli. PLAN: We will continue to monitor pending paperwork from [facility] or [facility]. The patient remains psychotic, suspicious, and paranoid. [facility]# [id number]
--- NOTE | 2019-08-26 14:19 | Internal Medicine Prog Note ---
Internal Medicine Subjective - Subjective Service Date: 08/26/19 Patient seen and examined:: without staff (SHE IS CONFUSED) Patient is:: awake, non-verbal, in bed, confused Per staff patient has:: no adverse event Internal Medicine Objective - Physical Exam Vitals and I&O: Vital Signs Temp 97.9 F 08/26/19 06:58 Pulse 58 08/26/19 06:58 Resp 18 08/26/19 06:58 BP 101/66 08/26/19 06:58 Pulse Ox 95 08/26/19 06:58 Intake & Output 08/25/19 08/26/19 08/26/19 18:59 06:59 18:59 Intake Total 560 240 Balance 560 240 Intake: Oral 560 240 Other: # Voids 3 2 # Bowel Movements 0 0 Active Medications: Current Medications Al Hydrox/Mg Hydrox/Simethicone (Maalox) 30 ml PO Q6H PRN PRN Reason: GI DISTRESS Stop: 10/12/19 21:27 Atorvastatin Calcium (Lipitor) 10 mg PO HS CHRISTIE; Protocol Stop: 10/13/19 20:59 Last Admin: 08/25/19 20:09 Dose: 10 mg Divalproex Sodium (Depakote Dr) 250 mg PO HS CHRISTIE; Protocol Stop: 10/13/19 21:29 Last Admin: 08/25/19 20:09 Dose: 250 mg Docusate Sodium (Colace) 250 mg PO DAILY CHRISTIE Stop: 10/13/19 08:59 Last Admin: 08/26/19 09:37 Dose: 250 mg Haloperidol Lactate (Haldol) 5 mg IM BID PRN PRN Reason: Agitation Stop: 10/18/19 06:24 Lorazepam (Ativan) 0.5 mg PO Q4HR PRN; Protocol PRN Reason: Anxiety Stop: 09/12/19 21:55 Lorazepam (Ativan) 0.5 mg PO HS CHRISTIE; Protocol Stop: 10/13/19 20:59 Last Admin: 08/25/19 20:10 Dose: 0.5 mg Olanzapine (Zyprexa) 10 mg PO HS CHRISTIE; Protocol Stop: 10/22/19 20:59 Last Admin: 08/25/19 20:09 Dose: 10 mg Trazodone HCl (Desyrel) 25 mg PO HS CHRISTIE; Protocol Stop: 02/04/20 20:59 Last Admin: 08/25/19 20:09 Dose: 25 mg Zolpidem Tartrate (Ambien) 5 mg PO HS PRN PRN Reason: Insomnia Stop: 10/12/19 21:55 General: demented HEENT: NC/AT, PERRLA, EOMI, anicteric sclerae, throat clear Neck: Supple, No JVD, No thyromegaly, +2 carotid pulse wo bruit, No LAD Cardiovascular: Normal S1, Normal S2, without murmur Abdomen: non-tender, non-distended Extremities: clear Neurological: no change Internal Medicine Assmt/Plan - Assessment Assessment: 1.HYPERLIPIDEMIA. 2.COPD. 3.DJD. 4.PSYCHSIS - Plan Plan: CONTINUE ON CURRENT MEDICATION AND DIET. Nutritional Asmnt/Malnutr-PDOC - Dietary Evaluation Malnutrition Findings (Please click <Entered> for more info): Nutritional Asmnt/Malnutrition Start: 08/18/19 15: 26 Text: Status: Complete Freq: Protocol: Document 08/18/19 15:26 KITA (Rec: 08/18/19 15:30 KITA [id number]) Nutritional Asmnt/Malnutrition Patient General Information Nutritional Screening Low Risk Diagnosis Psychosis Pertinent Medical Hx/Surgical Hx Hyperlipidemia, COPD, DJD, Psychosis Subjective Information Pt is a 64-year-old female admitted on 08/08 d/t psychosis. Pt has had poor PO intake since admit date (08/13) , eating 0-25-80% meals, with about 50% refusal to eat or pt asleep. Visited pt today at 3pm, pt fast asleep. Spoke with Nurse donchanelle concerning pt PO intake, recommended letting the MD know about the continued poor intake. Nurse stated pt is very paranoid and has been refusing everything. Left an Ensure with nurse to offer and encourage once pt wakes up. Will follow up tomorrow to see how pt tolerated the supplement. Recommend weight check as pt has poor PO intake >5 days. Anthropometrics HT: 55 WT: 155 LB (70.45 kg) BMI: 25.85 (Overweight) GI/ Skin Integrity GI: WNL, Soft, Flat, Non- tender BM: Not Noted I/O: 480/Not Noted Skin: WNL, Intact Dallin: 21 Diet Order: Regular Estimated Energy Needs: ( Geriatric, CBW) 3328-2386 kcals (25-30 kcals/ kg) 70-85g Pro (1.0-1.2 g/kg) 4175-1227 ml (25-30 ml/kg) Current Diet Order/ Nutrition Support Regular Pertinent Medications Maalox (PRN), Lipitor, Colace Pertinent Labs 08/12: A1c 5.1% Nutritional Hx/Data Height 1.65 m Height (Calculated Centimeters) 165.1 Current Weight (lbs) 70.307 kg Weight (Calculated Kilograms) 70.3 Weight (Calculated Grams) 71870.8 [place] Body Weight 125 LB (56.82 kg) % [place] Body Weight 124 Body Mass Index (BMI) 25.7 Weight Status Overweight GI Symptoms Last BM Not Noted Skin Integrity/Comment: Skin: WNL, Intact Dallin: 21 Current %PO Negligible < 25% Estimated Nutritional Goals BEE in Kcals: Using Current wt Calories/Kcals/Kg 25-30 Kcals Calculated 1760- 2100 Protein: Using Current wt Protein g/k.0-1.2 Protein Calculated 70-85 Fluid: ml 2729-5222 ml (25-30 ml/kg Nutritional Problem 1. Problem Problem Poor PO intake Etiology r/t possible psychosis/poor appetite Signs/Symptoms: aeb PO intake <25% meals. Malnutrition Related to Morbid Obesity Malnutrition related to morbid obesity No Intervention/Recommendation Comments 1. Continue Regular diet as tolerated. 2. RN to encourage improved PO intake. 3. Weight check. Expected Outcomes/Goals Expected Outcomes/Goals 1. PO intake to meet 75% of estimated nutritional needs. 2. Monitor PO intake, wt, nutrition related labs, and skin integrity. 3. F/U as high risk in 2-3 days, 08/20-08/21
--- NOTE | 2019-08-26 14:19 | Internal Medicine Prog Note ---
Internal Medicine Subjective - Subjective Service Date: 08/25/19 Patient seen and examined:: without staff (LESS CONFUSED) Patient is:: awake, non-verbal, in bed, confused Per staff patient has:: no adverse event Internal Medicine Objective - Physical Exam Vitals and I&O: Vital Signs Temp 97.8 F 08/25/19 06:29 Pulse 72 08/25/19 06:29 Resp 18 08/25/19 06:29 BP 97/65 08/25/19 06:29 Pulse Ox 96 08/25/19 06:29 Intake & Output 08/24/19 08/25/19 08/25/19 18:59 06:59 18:59 Intake Total 440 120 Balance 440 120 Intake: Oral 440 120 Other: # Voids 3 1 # Bowel Movements 0 Active Medications: Current Medications Al Hydrox/Mg Hydrox/Simethicone (Maalox) 30 ml PO Q6H PRN PRN Reason: GI DISTRESS Stop: 10/12/19 21:27 Atorvastatin Calcium (Lipitor) 10 mg PO HS CHRISTIE; Protocol Stop: 10/13/19 20:59 Last Admin: 08/24/19 20:59 Dose: 10 mg Divalproex Sodium (Depakote Dr) 250 mg PO HS CHRISTIE; Protocol Stop: 10/13/19 21:29 Last Admin: 08/24/19 20:59 Dose: 250 mg Docusate Sodium (Colace) 250 mg PO DAILY CHRISTIE Stop: 10/13/19 08:59 Last Admin: 08/25/19 08:20 Dose: Not Given Haloperidol Lactate (Haldol) 5 mg IM BID PRN PRN Reason: Agitation Stop: 10/18/19 06:24 Lorazepam (Ativan) 0.5 mg PO Q4HR PRN; Protocol PRN Reason: Anxiety Stop: 09/12/19 21:55 Lorazepam (Ativan) 0.5 mg PO HS CHRISTIE; Protocol Stop: 10/13/19 20:59 Last Admin: 08/24/19 20:59 Dose: 0.5 mg Olanzapine (Zyprexa) 10 mg PO HS CHRISTIE; Protocol Stop: 10/22/19 20:59 Last Admin: 08/24/19 20:59 Dose: 10 mg Trazodone HCl (Desyrel) 25 mg PO HS CHRISTIE; Protocol Stop: 10/13/19 20:59 Last Admin: 08/24/19 21:00 Dose: 25 mg Zolpidem Tartrate (Ambien) 5 mg PO HS PRN PRN Reason: Insomnia Stop: 10/12/19 21:55 General: demented HEENT: NC/AT, PERRLA, EOMI, anicteric sclerae, throat clear Neck: Supple, No JVD, No thyromegaly, +2 carotid pulse wo bruit, No LAD Cardiovascular: Normal S1, Normal S2, without murmur Abdomen: non-tender, non-distended Extremities: clear Neurological: no change Internal Medicine Assmt/Plan - Assessment Assessment: 1.HYPERLIPIDEMIA. 2.COPD. 3.DJD. 4.PSYCHSIS - Plan Plan: CONTINUE ON CURRENT MEDICATION AND DIET. Nutritional Asmnt/Malnutr-PDOC - Dietary Evaluation Malnutrition Findings (Please click <Entered> for more info): Nutritional Asmnt/Malnutrition Start: 08/18/19 15: 26 Text: Status: Complete Freq: Protocol: Document 08/18/19 15:26 KITA (Rec: 08/18/19 15:30 KITA [id number]) Nutritional Asmnt/Malnutrition Patient General Information Nutritional Screening Low Risk Diagnosis Psychosis Pertinent Medical Hx/Surgical Hx Hyperlipidemia, COPD, DJD, Psychosis Subjective Information Pt is a 64-year-old female admitted on 08/08 d/t psychosis. Pt has had poor PO intake since admit date (08/13) , eating 0-25-80% meals, with about 50% refusal to eat or pt asleep. Visited pt today at 3pm, pt fast asleep. Spoke with Nurse donits concerning pt PO intake, recommended letting the MD know about the continued poor intake. Nurse stated pt is very paranoid and has been refusing everything. Left an Ensure with nurse to offer and encourage once pt wakes up. Will follow up tomorrow to see how pt tolerated the supplement. Recommend weight check as pt has poor PO intake >5 days. Anthropometrics HT: 55 WT: 155 LB (70.45 kg) BMI: 25.85 (Overweight) GI/ Skin Integrity GI: WNL, Soft, Flat, Non- tender BM: Not Noted I/O: 480/Not Noted Skin: WNL, Intact Dallin: 21 Diet Order: Regular Estimated Energy Needs: ( Geriatric, CBW) 1761-8214 kcals (25-30 kcals/ kg) 70-85g Pro (1.0-1.2 g/kg) 1538-7296 ml (25-30 ml/kg) Current Diet Order/ Nutrition Support Regular Pertinent Medications Maalox (PRN), Lipitor, Colace Pertinent Labs 08/12: A1c 5.1% Nutritional Hx/Data Height 1.65 m Height (Calculated Centimeters) 165.1 Current Weight (lbs) 70.307 kg Weight (Calculated Kilograms) 70.3 Weight (Calculated Grams) 05769.8 [place] Body Weight 125 LB (56.82 kg) % [place] Body Weight 124 Body Mass Index (BMI) 25.7 Weight Status Overweight GI Symptoms Last BM Not Noted Skin Integrity/Comment: Skin: WNL, Intact Dallin: 21 Current %PO Negligible < 25% Estimated Nutritional Goals BEE in Kcals: Using Current wt Calories/Kcals/Kg 25-30 Kcals Calculated 1760- 2100 Protein: Using Current wt Protein g/k.0-1.2 Protein Calculated 70-85 Fluid: ml 9767-2969 ml (25-30 ml/kg Nutritional Problem 1. Problem Problem Poor PO intake Etiology r/t possible psychosis/poor appetite Signs/Symptoms: aeb PO intake <25% meals. Malnutrition Related to Morbid Obesity Malnutrition related to morbid obesity No Intervention/Recommendation Comments 1. Continue Regular diet as tolerated. 2. RN to encourage improved PO intake. 3. Weight check. Expected Outcomes/Goals Expected Outcomes/Goals 1. PO intake to meet 75% of estimated nutritional needs. 2. Monitor PO intake, wt, nutrition related labs, and skin integrity. 3. F/U as high risk in 2-3 days, 08/20-08/21
[2019-08-26] MEDS: Atorvastatin Calcium 10 MG TAB PO SCH (20:42)
[2019-08-27] MEDS ORDERED: Haloperidol Lactate 5 mg/mL 1mL Vial IM PRN (10:23)
--- NOTE | 2019-08-27 14:23 | Progress Notes ---
DATE: 08/27/2019 SUBJECTIVE: The patient remains aggressive, very impulsive, unpredictable, refusing medications. We do finally have permission from the [facility] to medicate, will initiate Haldol IM backup for medication refusals. The patient is conserved, not talking to me whatsoever. PLAN: We will continue to monitor. I will finally be able to start treatment. JOB# [id number]
--- NOTE | 2019-08-27 17:13 | Internal Medicine Prog Note ---
Internal Medicine Subjective - Subjective Service Date: 08/27/19 Patient seen and examined:: without staff (SHE IS CONFUSED) Patient is:: awake, non-verbal, in bed, confused Per staff patient has:: no adverse event Internal Medicine Objective - Physical Exam Vitals and I&O: Vital Signs Temp 98.2 F 08/27/19 14:00 Pulse 69 08/27/19 14:00 Resp 16 08/27/19 14:00 BP 98/61 08/27/19 14:00 Pulse Ox 96 08/27/19 14:00 Intake & Output 08/26/19 08/27/19 08/27/19 18:59 06:59 18:59 Intake Total 120 120 Balance 120 120 Intake: Oral 120 120 Other: # Voids 2 2 2 # Bowel Movements 1 0 0 Active Medications: Current Medications Al Hydrox/Mg Hydrox/Simethicone (Maalox) 30 ml PO Q6H PRN PRN Reason: GI DISTRESS Stop: 10/12/19 21:27 Atorvastatin Calcium (Lipitor) 10 mg PO HS CHRISTIE; Protocol Stop: 10/13/19 20:59 Last Admin: 08/26/19 20:42 Dose: 10 mg Docusate Sodium (Colace) 250 mg PO DAILY CHRISTIE Stop: 10/13/19 08:59 Last Admin: 08/27/19 08:44 Dose: 250 mg Haloperidol Lactate (Haldol) 5 mg IM BID PRN PRN Reason: Agitation Stop: 10/26/19 10:22 Lorazepam (Ativan) 0.5 mg PO Q4HR PRN; Protocol PRN Reason: Anxiety Stop: 09/12/19 21:55 Lorazepam (Ativan) 0.5 mg PO HS CHRISTIE; Protocol Stop: 10/13/19 20:59 Last Admin: 08/26/19 20:42 Dose: 0.5 mg Olanzapine (Zyprexa) 5 mg PO BID CHRISTIE; Protocol Stop: 10/26/19 16:59 Trazodone HCl (Desyrel) 25 mg PO HS CHRISTIE; Protocol Stop: 10/13/19 20:59 Last Admin: 08/26/19 20:42 Dose: 25 mg Zolpidem Tartrate (Ambien) 5 mg PO HS PRN PRN Reason: Insomnia Stop: 10/12/19 21:55 General: demented HEENT: NC/AT, PERRLA, EOMI, anicteric sclerae, throat clear Neck: Supple, No JVD, No thyromegaly, +2 carotid pulse wo bruit, No LAD Cardiovascular: Normal S1, Normal S2, without murmur Abdomen: non-tender, non-distended Extremities: clear Neurological: no change Internal Medicine Assmt/Plan - Assessment Assessment: 1.HYPERLIPIDEMIA. 2.COPD. 3.DJD. 4.PSYCHSIS - Plan Plan: CONTINUE ON CURRENT MEDICATION AND DIET. Nutritional Asmnt/Malnutr-PDOC - Dietary Evaluation Malnutrition Findings (Please click <Entered> for more info): Nutritional Asmnt/Malnutrition Start: 08/18/19 15: 26 Text: Status: Complete Freq: Protocol: Document 08/18/19 15:26 KITA (Rec: 08/18/19 15:30 KITA [id number]) Nutritional Asmnt/Malnutrition Patient General Information Nutritional Screening Low Risk Diagnosis Psychosis Pertinent Medical Hx/Surgical Hx Hyperlipidemia, COPD, DJD, Psychosis Subjective Information Pt is a 64-year-old female admitted on 08/08 d/t psychosis. Pt has had poor PO intake since admit date (08/13) , eating 0-25-80% meals, with about 50% refusal to eat or pt asleep. Visited pt today at 3pm, pt fast asleep. Spoke with Nurse donits concerning pt PO intake, recommended letting the MD know about the continued poor intake. Nurse stated pt is very paranoid and has been refusing everything. Left an Ensure with nurse to offer and encourage once pt wakes up. Will follow up tomorrow to see how pt tolerated the supplement. Recommend weight check as pt has poor PO intake >5 days. Anthropometrics HT: 55 WT: 155 LB (70.45 kg) BMI: 25.85 (Overweight) GI/ Skin Integrity GI: WNL, Soft, Flat, Non- tender BM: Not Noted I/O: 480/Not Noted Skin: WNL, Intact Dallin: 21 Diet Order: Regular Estimated Energy Needs: ( Geriatric, CBW) 5580-8233 kcals (25-30 kcals/ kg) 70-85g Pro (1.0-1.2 g/kg) 8222-8055 ml (25-30 ml/kg) Current Diet Order/ Nutrition Support Regular Pertinent Medications Maalox (PRN), Lipitor, Colace Pertinent Labs 08/12: A1c 5.1% Nutritional Hx/Data Height 1.65 m Height (Calculated Centimeters) 165.1 Current Weight (lbs) 70.307 kg Weight (Calculated Kilograms) 70.3 Weight (Calculated Grams) 63204.8 [place] Body Weight 125 LB (56.82 kg) % [place] Body Weight 124 Body Mass Index (BMI) 25.7 Weight Status Overweight GI Symptoms Last BM Not Noted Skin Integrity/Comment: Skin: WNL, Intact Dallin: 21 Current %PO Negligible < 25% Estimated Nutritional Goals BEE in Kcals: Using Current wt Calories/Kcals/Kg 25-30 Kcals Calculated 1760- 2100 Protein: Using Current wt Protein g/k.0-1.2 Protein Calculated 70-85 Fluid: ml 4603-1083 ml (25-30 ml/kg Nutritional Problem 1. Problem Problem Poor PO intake Etiology r/t possible psychosis/poor appetite Signs/Symptoms: aeb PO intake <25% meals. Malnutrition Related to Morbid Obesity Malnutrition related to morbid obesity No Intervention/Recommendation Comments 1. Continue Regular diet as tolerated. 2. RN to encourage improved PO intake. 3. Weight check. Expected Outcomes/Goals Expected Outcomes/Goals 1. PO intake to meet 75% of estimated nutritional needs. 2. Monitor PO intake, wt, nutrition related labs, and skin integrity. 3. F/U as high risk in 2-3 days, 08/20-08/21
[2019-08-27] MEDS: Atorvastatin Calcium 10 MG TAB PO SCH (21:09)
--- NOTE | 2019-08-28 18:40 | Progress Notes ---
DATE: 08/28/2019 SUBJECTIVE: The patient continues to refuse to talk to me. The patient with an IM backup mostly keeps to self, withdrawn, impulsive, unpredictable, ongoing safety concerns. PLAN: We will continue to monitor. Continue IM backup, slowly titrate dosing of Zyprexa. [facility]# [id number]
[2019-08-28] MEDS: Atorvastatin Calcium 10 MG TAB PO SCH (20:38)
--- NOTE | 2019-08-28 20:48 | Internal Medicine Prog Note ---
Internal Medicine Subjective - Subjective Service Date: 08/28/19 Patient seen and examined:: without staff (she is confused) Patient is:: awake, non-verbal, in bed, confused Per staff patient has:: no adverse event Internal Medicine Objective - Physical Exam Vitals and I&O: Vital Signs Temp 97.4 F 08/28/19 14:00 Pulse 62 08/28/19 14:00 Resp 18 08/28/19 14:00 BP 110/71 08/28/19 14:00 Pulse Ox 98 08/28/19 14:00 Intake & Output 08/28/19 08/28/19 08/29/19 06:59 18:59 06:59 Intake Total 120 760 60 Balance 120 760 60 Intake: Oral 120 760 60 Other: # Voids 2 2 0 # Bowel Movements 0 0 Active Medications: Current Medications Al Hydrox/Mg Hydrox/Simethicone (Maalox) 30 ml PO Q6H PRN PRN Reason: GI DISTRESS Stop: 10/12/19 21:27 Atorvastatin Calcium (Lipitor) 10 mg PO HS CHRISTIE; Protocol Stop: 10/13/19 20:59 Last Admin: 08/28/19 20:38 Dose: 10 mg Docusate Sodium (Colace) 250 mg PO DAILY CHRISTIE Stop: 10/13/19 08:59 Last Admin: 08/28/19 08:26 Dose: 250 mg Haloperidol Lactate (Haldol) 5 mg IM BID PRN PRN Reason: Agitation Stop: 10/26/19 10:22 Lorazepam (Ativan) 0.5 mg PO Q4HR PRN; Protocol PRN Reason: Anxiety Stop: 09/12/19 21:55 Lorazepam (Ativan) 0.5 mg PO HS CHRISTIE; Protocol Stop: 10/13/19 20:59 Last Admin: 08/28/19 20:38 Dose: 0.5 mg Olanzapine (Zyprexa) 10 mg PO BID CHRISTIE; Protocol Stop: 10/27/19 16:59 Last Admin: 08/28/19 17:20 Dose: 10 mg Trazodone HCl (Desyrel) 25 mg PO HS CHRISTIE; Protocol Stop: 10/13/19 20:59 Last Admin: 08/28/19 20:37 Dose: 25 mg Zolpidem Tartrate (Ambien) 5 mg PO HS PRN PRN Reason: Insomnia Stop: 10/12/19 21:55 General: demented HEENT: NC/AT, PERRLA, EOMI, anicteric sclerae, throat clear Neck: Supple, No JVD, No thyromegaly, +2 carotid pulse wo bruit, No LAD Cardiovascular: Normal S1, Normal S2, without murmur Abdomen: non-tender, non-distended Extremities: clear Neurological: no change Internal Medicine Assmt/Plan - Assessment Assessment: 1.HYPERLIPIDEMIA. 2.COPD. 3.DJD. 4.PSYCHSIS - Plan Plan: CONTINUE ON CURRENT MEDICATION AND DIET. Nutritional Asmnt/Malnutr-PDOC - Dietary Evaluation Malnutrition Findings (Please click <Entered> for more info): Nutritional Asmnt/Malnutrition Start: 08/18/19 15: 26 Text: Status: Complete Freq: Protocol: Document 08/18/19 15:26 KITA (Rec: 08/18/19 15:30 KITA [id number]) Nutritional Asmnt/Malnutrition Patient General Information Nutritional Screening Low Risk Diagnosis Psychosis Pertinent Medical Hx/Surgical Hx Hyperlipidemia, COPD, DJD, Psychosis Subjective Information Pt is a 64-year-old female admitted on 08/08 d/t psychosis. Pt has had poor PO intake since admit date (08/13) , eating 0-25-80% meals, with about 50% refusal to eat or pt asleep. Visited pt today at 3pm, pt fast asleep. Spoke with Nurse donits concerning pt PO intake, recommended letting the MD know about the continued poor intake. Nurse stated pt is very paranoid and has been refusing everything. Left an Ensure with nurse to offer and encourage once pt wakes up. Will follow up tomorrow to see how pt tolerated the supplement. Recommend weight check as pt has poor PO intake >5 days. Anthropometrics HT: 55 WT: 155 LB (70.45 kg) BMI: 25.85 (Overweight) GI/ Skin Integrity GI: WNL, Soft, Flat, Non- tender BM: Not Noted I/O: 480/Not Noted Skin: WNL, Intact Dallin: 21 Diet Order: Regular Estimated Energy Needs: ( Geriatric, CBW) 3646-1476 kcals (25-30 kcals/ kg) 70-85g Pro (1.0-1.2 g/kg) 5711-1009 ml (25-30 ml/kg) Current Diet Order/ Nutrition Support Regular Pertinent Medications Maalox (PRN), Lipitor, Colace Pertinent Labs 08/12: A1c 5.1% Nutritional Hx/Data Height 1.65 m Height (Calculated Centimeters) 165.1 Current Weight (lbs) 70.307 kg Weight (Calculated Kilograms) 70.3 Weight (Calculated Grams) 71433.8 [place] Body Weight 125 LB (56.82 kg) % [place] Body Weight 124 Body Mass Index (BMI) 25.7 Weight Status Overweight GI Symptoms Last BM Not Noted Skin Integrity/Comment: Skin: WNL, Intact Dallin: 21 Current %PO Negligible < 25% Estimated Nutritional Goals BEE in Kcals: Using Current wt Calories/Kcals/Kg 25-30 Kcals Calculated 1760- 2100 Protein: Using Current wt Protein g/k.0-1.2 Protein Calculated 70-85 Fluid: ml 5120-0321 ml (25-30 ml/kg Nutritional Problem 1. Problem Problem Poor PO intake Etiology r/t possible psychosis/poor appetite Signs/Symptoms: aeb PO intake <25% meals. Malnutrition Related to Morbid Obesity Malnutrition related to morbid obesity No Intervention/Recommendation Comments 1. Continue Regular diet as tolerated. 2. RN to encourage improved PO intake. 3. Weight check. Expected Outcomes/Goals Expected Outcomes/Goals 1. PO intake to meet 75% of estimated nutritional needs. 2. Monitor PO intake, wt, nutrition related labs, and skin integrity. 3. F/U as high risk in 2-3 days, 08/20-08/21
--- NOTE | 2019-08-29 07:08 | Progress Notes ---
DATE: 08/29/2019 SUBJECTIVE: The patient is currently in the hospital, noted to be with ongoing symptoms, yelling, screaming, trying to hit staff. She is taking medications, but only after threats of injection. ASSESSMENT: The patient refusing to speak with me, irritable, upset. PLAN: I will be switching over to Haldol and eventually Haldol Decanoate, continue IM backup. JOB# [id number]
--- NOTE | 2019-08-29 15:30 | General Progress Note ---
Subjective - Review of Systems Service Date: 08/29/19 Subjective: resting comfortably no distress Objective - Physical Exam Vitals and I&O: Vital Signs Temp 97.3 F 08/29/19 06:38 Pulse 56 08/29/19 06:38 Resp 19 08/29/19 06:38 BP 95/56 08/29/19 06:38 Pulse Ox 94 08/29/19 06:38 Intake & Output 08/28/19 08/29/19 08/29/19 18:59 06:59 18:59 Intake Total 760 60 Balance 760 60 Intake: Oral 760 60 Other: # Voids 2 0 # Bowel Movements 0 0 Active Medications: Current Medications Al Hydrox/Mg Hydrox/Simethicone (Maalox) 30 ml PO Q6H PRN PRN Reason: GI DISTRESS Stop: 10/12/19 21:27 Atorvastatin Calcium (Lipitor) 10 mg PO HS CHRISTIE; Protocol Stop: 10/13/19 20:59 Last Admin: 08/28/19 20:38 Dose: 10 mg Docusate Sodium (Colace) 250 mg PO DAILY CHRISTIE Stop: 10/13/19 08:59 Last Admin: 08/29/19 08:41 Dose: Not Given Haloperidol (Haldol) 5 mg PO BID CHRISTIE; Protocol Stop: 10/28/19 08:59 Last Admin: 08/29/19 08:41 Dose: 5 mg Haloperidol Lactate (Haldol) 5 mg IM BID PRN PRN Reason: Agitation Stop: 10/26/19 10:22 Lorazepam (Ativan) 0.5 mg PO Q4HR PRN; Protocol PRN Reason: Anxiety Stop: 09/12/19 21:55 Lorazepam (Ativan) 0.5 mg PO HS CHRISTIE; Protocol Stop: 10/13/19 20:59 Last Admin: 08/28/19 20:38 Dose: 0.5 mg Trazodone HCl (Desyrel) 25 mg PO HS CHRISTIE; Protocol Stop: 10/13/19 20:59 Last Admin: 08/28/19 20:37 Dose: 25 mg Zolpidem Tartrate (Ambien) 5 mg PO HS PRN PRN Reason: Insomnia Stop: 10/12/19 21:55 General: No acute distress HEENT: PERRLA, EOMI Neck: Supple, JVD, Thyromegaly Cardiovascular: Regular rate, Normal S1, Normal S2 Lungs: Clear to auscultation Abdomen: Bowel sounds, Soft Assessment/Plan - Assessment Assessment: 1.HYPERLIPIDEMIA. 2.DJD. 3.COPD. 4.PSYCHOSIS - Plan Plan: continue current treatment Nutritional Asmnt/Malnutr-PDOC - Dietary Evaluation Malnutrition Findings (Please click <Entered> for more info): Nutritional Asmnt/Malnutrition Start: 08/18/19 15: 26 Text: Status: Complete Freq: Protocol: Document 08/18/19 15:26 KITA (Rec: 08/18/19 15:30 [email or web address]) Nutritional Asmnt/Malnutrition Patient General Information Nutritional Screening Low Risk Diagnosis Psychosis Pertinent Medical Hx/Surgical Hx Hyperlipidemia, COPD, DJD, Psychosis Subjective Information Pt is a 64-year-old female admitted on 08/08 d/t psychosis. Pt has had poor PO intake since admit date (08/13) , eating 0-25-80% meals, with about 50% refusal to eat or pt asleep. Visited pt today at 3pm, pt fast asleep. Spoke with Nurse donchanelle concerning pt PO intake, recommended letting the MD know about the continued poor intake. Nurse stated pt is very paranoid and has been refusing everything. Left an Ensure with nurse to offer and encourage once pt wakes up. Will follow up tomorrow to see how pt tolerated the supplement. Recommend weight check as pt has poor PO intake >5 days. Anthropometrics HT: 55 WT: 155 LB (70.45 kg) BMI: 25.85 (Overweight) GI/ Skin Integrity GI: WNL, Soft, Flat, Non- tender BM: Not Noted I/O: 480/Not Noted Skin: WNL, Intact Dallin: 21 Diet Order: Regular Estimated Energy Needs: ( Geriatric, CBW) 6769-7936 kcals (25-30 kcals/ kg) 70-85g Pro (1.0-1.2 g/kg) 5195-0638 ml (25-30 ml/kg) Current Diet Order/ Nutrition Support Regular Pertinent Medications Maalox (PRN), Lipitor, Colace Pertinent Labs 08/12: A1c 5.1% Nutritional Hx/Data Height 1.65 m Height (Calculated Centimeters) 165.1 Current Weight (lbs) 70.307 kg Weight (Calculated Kilograms) 70.3 Weight (Calculated Grams) 61920.8 [place] Body Weight 125 LB (56.82 kg) % [place] Body Weight 124 Body Mass Index (BMI) 25.7 Weight Status Overweight GI Symptoms Last BM Not Noted Skin Integrity/Comment: Skin: WNL, Intact Dallin: 21 Current %PO Negligible < 25% Estimated Nutritional Goals BEE in Kcals: Using Current wt Calories/Kcals/Kg 25-30 Kcals Calculated 1760- 2100 Protein: Using Current wt Protein g/k.0-1.2 Protein Calculated 70-85 Fluid: ml 4487-3913 ml (25-30 ml/kg Nutritional Problem 1. Problem Problem Poor PO intake Etiology r/t possible psychosis/poor appetite Signs/Symptoms: aeb PO intake <25% meals. Malnutrition Related to Morbid Obesity Malnutrition related to morbid obesity No Intervention/Recommendation Comments 1. Continue Regular diet as tolerated. 2. RN to encourage improved PO intake. 3. Weight check. Expected Outcomes/Goals Expected Outcomes/Goals 1. PO intake to meet 75% of estimated nutritional needs. 2. Monitor PO intake, wt, nutrition related labs, and skin integrity. 3. F/U as high risk in 2-3 days, 08/20-08/21
[2019-08-29] MEDS: Atorvastatin Calcium 10 MG TAB PO SCH (21:00)
--- NOTE | 2019-08-30 10:59 | General Progress Note ---
Subjective - Review of Systems Service Date: 08/30/19 Subjective: resting comfortably no distress Objective - Physical Exam Vitals and I&O: Vital Signs Temp 98 F 08/29/19 20:30 Pulse 20 08/29/19 20:30 Resp 87 08/29/19 20:30 BP 125/63 08/29/19 20:30 Pulse Ox 97 08/29/19 20:30 Intake & Output 08/29/19 08/30/19 08/30/19 18:59 06:59 18:59 Intake Total 100 240 Balance 100 240 Intake: Oral 100 240 Other: # Voids 1 Active Medications: Current Medications Al Hydrox/Mg Hydrox/Simethicone (Maalox) 30 ml PO Q6H PRN PRN Reason: GI DISTRESS Stop: 10/12/19 21:27 Atorvastatin Calcium (Lipitor) 10 mg PO HS CHRISTIE; Protocol Stop: 10/13/19 20:59 Last Admin: 08/29/19 21:00 Dose: Not Given Docusate Sodium (Colace) 250 mg PO DAILY CH[facility]STIE Stop: 10/13/19 08:59 Last Admin: 08/30/19 08:47 Dose: Not Given Haloperidol (Haldol) 5 mg PO BID CHRISTIE; Protocol Stop: 10/28/19 08:59 Last Admin: 08/30/19 08:47 Dose: 5 mg Haloperidol Lactate (Haldol) 5 mg IM BID PRN PRN Reason: Agitation Stop: 10/26/19 10:22 Lorazepam (Ativan) 0.5 mg PO Q4HR PRN; Protocol PRN Reason: Anxiety Stop: 09/12/19 21:55 Lorazepam (Ativan) 0.5 mg PO HS CHRISTIE; Protocol Stop: 10/13/19 20:59 Last Admin: 08/29/19 21:00 Dose: 0.5 mg Trazodone HCl (Desyrel) 25 mg PO HS CHRISTIE; Protocol Stop: 10/13/19 20:59 Last Admin: 08/29/19 20:59 Dose: 25 mg Zolpidem Tartrate (Ambien) 5 mg PO HS PRN PRN Reason: Insomnia Stop: 10/12/19 21:55 General: No acute distress HEENT: PERRLA, EOMI Neck: Supple, JVD, Thyromegaly Cardiovascular: Regular rate, Normal S1, Normal S2 Lungs: Clear to auscultation Abdomen: Bowel sounds, Soft Assessment/Plan - Assessment Assessment: 1.HYPERLIPIDEMIA. 2.DJD. 3.COPD. 4.PSYCHOSIS - Plan Plan: continue current treatment Nutritional Asmnt/Malnutr-PDOC - Dietary Evaluation Malnutrition Findings (Please click <Entered> for more info): Nutritional Asmnt/Malnutrition Start: 08/18/19 15: 26 Text: Status: Complete Freq: Protocol: Document 08/18/19 15:26 KITA (Rec: 08/18/19 15:30 [email or web address] [email or web address]) Nutritional Asmnt/Malnutrition Patient General Information Nutritional Screening Low Risk Diagnosis Psychosis Pertinent Medical Hx/Surgical Hx Hyperlipidemia, COPD, DJD, Psychosis Subjective Information Pt is a 64-year-old female admitted on 08/08 d/t psychosis. Pt has had poor PO intake since admit date (08/13) , eating 0-25-80% meals, with about 50% refusal to eat or pt asleep. Visited pt today at 3pm, pt fast asleep. Spoke with Nurse donits concerning pt PO intake, recommended letting the MD know about the continued poor intake. Nurse stated pt is very paranoid and has been refusing everything. Left an Ensure with nurse to offer and encourage once pt wakes up. Will follow up tomorrow to see how pt tolerated the supplement. Recommend weight check as pt has poor PO intake >5 days. Anthropometrics HT: 55 WT: 155 LB (70.45 kg) BMI: 25.85 (Overweight) GI/ Skin Integrity GI: WNL, Soft, Flat, Non- tender BM: Not Noted I/O: 480/Not Noted Skin: WNL, Intact Dallin: 21 Diet Order: Regular Estimated Energy Needs: ( Geriatric, CBW) 7435-9246 kcals (25-30 kcals/ kg) 70-85g Pro (1.0-1.2 g/kg) 4021-1600 ml (25-30 ml/kg) Current Diet Order/ Nutrition Support Regular Pertinent Medications Maalox (PRN), Lipitor, Colace Pertinent Labs 08/12: A1c 5.1% Nutritional Hx/Data Height 1.65 m Height (Calculated Centimeters) 165.1 Current Weight (lbs) 70.307 kg Weight (Calculated Kilograms) 70.3 Weight (Calculated Grams) 33553.8 [place] Body Weight 125 LB (56.82 kg) % [place] Body Weight 124 Body Mass Index (BMI) 25.7 Weight Status Overweight GI Symptoms Last BM Not Noted Skin Integrity/Comment: Skin: WNL, Intact Dallin: 21 Current %PO Negligible < 25% Estimated Nutritional Goals BEE in Kcals: Using Current wt Calories/Kcals/Kg 25-30 Kcals Calculated 1760- 2100 Protein: Using Current wt Protein g/k.0-1.2 Protein Calculated 70-85 Fluid: ml 7981-9829 ml (25-30 ml/kg Nutritional Problem 1. Problem Problem Poor PO intake Etiology r/t possible psychosis/poor appetite Signs/Symptoms: aeb PO intake <25% meals. Malnutrition Related to Morbid Obesity Malnutrition related to morbid obesity No Intervention/Recommendation Comments 1. Continue Regular diet as tolerated. 2. RN to encourage improved PO intake. 3. Weight check. Expected Outcomes/Goals Expected Outcomes/Goals 1. PO intake to meet 75% of estimated nutritional needs. 2. Monitor PO intake, wt, nutrition related labs, and skin integrity. 3. F/U as high risk in 2-3 days, 08/20-08/21
[2019-08-30] MEDS: Atorvastatin Calcium 10 MG TAB PO SCH (20:42)
--- NOTE | 2019-08-31 18:51 | Internal Medicine Prog Note ---
Internal Medicine Subjective - Subjective Service Date: 08/31/19 Patient seen and examined:: with staff (SHE IS NOT EATING ,REFUSING TO EAT) Patient is:: awake, non-verbal, in bed, confused Per staff patient has:: no adverse event Internal Medicine Objective - Physical Exam Vitals and I&O: Vital Signs Temp 97.6 F 08/31/19 14:00 Pulse 65 08/31/19 14:00 Resp 18 08/31/19 14:00 BP 86/55 08/31/19 14:00 Pulse Ox 95 08/31/19 14:00 Intake & Output 08/30/19 08/31/19 08/31/19 18:59 06:59 18:59 Intake Total 800 240 660 Balance 800 240 660 Intake: Oral 800 240 660 Other: # Voids 2 4 # Bowel Movements 0 Active Medications: Current Medications Al Hydrox/Mg Hydrox/Simethicone (Maalox) 30 ml PO Q6H PRN PRN Reason: GI DISTRESS Stop: 10/12/19 21:27 Atorvastatin Calcium (Lipitor) 10 mg PO HS CHRISTIE; Protocol Stop: 10/13/19 20:59 Last Admin: 08/30/19 20:42 Dose: 10 mg Docusate Sodium (Colace) 250 mg PO DAILY CH[facility]STIE Stop: 10/13/19 08:59 Last Admin: 08/31/19 08:15 Dose: Not Given Haloperidol (Haldol) 5 mg PO BID CHRISTIE; Protocol Stop: 10/28/19 08:59 Last Admin: 08/31/19 16:36 Dose: 5 mg Haloperidol Lactate (Haldol) 5 mg IM BID PRN PRN Reason: Agitation Stop: 10/26/19 10:22 Lorazepam (Ativan) 0.5 mg PO Q4HR PRN; Protocol PRN Reason: Anxiety Stop: 09/12/19 21:55 Lorazepam (Ativan) 0.5 mg PO HS CHRISTIE; Protocol Stop: 10/13/19 20:59 Last Admin: 08/30/19 20:42 Dose: 0.5 mg Trazodone HCl (Desyrel) 25 mg PO HS CHRISTIE; Protocol Stop: 10/13/19 20:59 Last Admin: 08/30/19 20:42 Dose: 25 mg Zolpidem Tartrate (Ambien) 5 mg PO HS PRN PRN Reason: Insomnia Stop: 10/12/19 21:55 General: demented HEENT: NC/AT, PERRLA, EOMI, anicteric sclerae, throat clear Neck: Supple, No JVD, No thyromegaly, +2 carotid pulse wo bruit, No LAD Cardiovascular: Normal S1, Normal S2, without murmur Abdomen: non-tender, non-distended Extremities: clear Neurological: no change Internal Medicine Assmt/Plan - Assessment Assessment: 1.HYPERLIPIDEMIA. 2.COPD. 3.DJD. 4.PSYCHSIS - Plan Plan: CONTINUE ON CURRENT MEDICATION AND DIET. Nutritional Asmnt/Malnutr-PDOC - Dietary Evaluation Malnutrition Findings (Please click <Entered> for more info): Nutritional Asmnt/Malnutrition Start: 08/18/19 15: 26 Text: Status: Complete Freq: Protocol: Document 08/18/19 15:26 KITA (Rec: 08/18/19 15:30 KITA [email or web address]) Nutritional Asmnt/Malnutrition Patient General Information Nutritional Screening Low Risk Diagnosis Psychosis Pertinent Medical Hx/Surgical Hx Hyperlipidemia, COPD, DJD, Psychosis Subjective Information Pt is a 64-year-old female admitted on 08/08 d/t psychosis. Pt has had poor PO intake since admit date (08/13) , eating 0-25-80% meals, with about 50% refusal to eat or pt asleep. Visited pt today at 3pm, pt fast asleep. Spoke with Nurse donits concerning pt PO intake, recommended letting the MD know about the continued poor intake. Nurse stated pt is very paranoid and has been refusing everything. Left an Ensure with nurse to offer and encourage once pt wakes up. Will follow up tomorrow to see how pt tolerated the supplement. Recommend weight check as pt has poor PO intake >5 days. Anthropometrics HT: 55 WT: 155 LB (70.45 kg) BMI: 25.85 (Overweight) GI/ Skin Integrity GI: WNL, Soft, Flat, Non- tender BM: Not Noted I/O: 480/Not Noted Skin: WNL, Intact Dallin: 21 Diet Order: Regular Estimated Energy Needs: ( Geriatric, CBW) 3918-4359 kcals (25-30 kcals/ kg) 70-85g Pro (1.0-1.2 g/kg) 5408-0562 ml (25-30 ml/kg) Current Diet Order/ Nutrition Support Regular Pertinent Medications Maalox (PRN), Lipitor, Colace Pertinent Labs 08/12: A1c 5.1% Nutritional Hx/Data Height 1.65 m Height (Calculated Centimeters) 165.1 Current Weight (lbs) 70.307 kg Weight (Calculated Kilograms) 70.3 Weight (Calculated Grams) 65252.8 [place] Body Weight 125 LB (56.82 kg) % [place] Body Weight 124 Body Mass Index (BMI) 25.7 Weight Status Overweight GI Symptoms Last BM Not Noted Skin Integrity/Comment: Skin: WNL, Intact Dallin: 21 Current %PO Negligible < 25% Estimated Nutritional Goals BEE in Kcals: Using Current wt Calories/Kcals/Kg 25-30 Kcals Calculated 1760- 2100 Protein: Using Current wt Protein g/k.0-1.2 Protein Calculated 70-85 Fluid: ml 7445-1956 ml (25-30 ml/kg Nutritional Problem 1. Problem Problem Poor PO intake Etiology r/t possible psychosis/poor appetite Signs/Symptoms: aeb PO intake <25% meals. Malnutrition Related to Morbid Obesity Malnutrition related to morbid obesity No Intervention/Recommendation Comments 1. Continue Regular diet as tolerated. 2. RN to encourage improved PO intake. 3. Weight check. Expected Outcomes/Goals Expected Outcomes/Goals 1. PO intake to meet 75% of estimated nutritional needs. 2. Monitor PO intake, wt, nutrition related labs, and skin integrity. 3. F/U as high risk in 2-3 days, 08/20-08/21
[2019-08-31] MEDS: Atorvastatin Calcium 10 MG TAB PO SCH (20:43)
--- NOTE | 2019-09-01 17:23 | Internal Medicine Prog Note ---
Internal Medicine Subjective - Subjective Service Date: 09/01/19 Patient seen and examined:: without staff (she is doing better) Patient is:: awake, non-verbal, in bed, confused Per staff patient has:: no adverse event Internal Medicine Objective - Physical Exam Vitals and I&O: Vital Signs Temp 97.8 F 09/01/19 14:00 Pulse 115 09/01/19 14:00 Resp 20 09/01/19 14:00 BP 93/61 09/01/19 14:00 Pulse Ox 96 09/01/19 14:00 Intake & Output 08/31/19 09/01/19 09/01/19 18:59 06:59 18:59 Intake Total 660 240 Balance 660 240 Intake: Oral 660 240 Other: # Voids 4 2 # Bowel Movements 0 Active Medications: Current Medications Al Hydrox/Mg Hydrox/Simethicone (Maalox) 30 ml PO Q6H PRN PRN Reason: GI DISTRESS Stop: 10/12/19 21:27 Atorvastatin Calcium (Lipitor) 10 mg PO HS CHRISTIE; Protocol Stop: 10/13/19 20:59 Last Admin: 08/31/19 20:43 Dose: 10 mg Docusate Sodium (Colace) 250 mg PO DAILY CHRISTIE Stop: 10/13/19 08:59 Last Admin: 09/01/19 08:25 Dose: Not Given Haloperidol (Haldol) 5 mg PO BID CHRISTIE; Protocol Stop: 10/28/19 08:59 Last Admin: 09/01/19 08:24 Dose: 5 mg Haloperidol Lactate (Haldol) 5 mg IM BID PRN PRN Reason: Agitation Stop: 10/26/19 10:22 Lorazepam (Ativan) 0.5 mg PO Q4HR PRN; Protocol PRN Reason: Anxiety Stop: 09/12/19 21:55 Lorazepam (Ativan) 0.5 mg PO HS CHRISTIE; Protocol Stop: 10/13/19 20:59 Last Admin: 08/31/19 20:53 Dose: Not Given Trazodone HCl (Desyrel) 25 mg PO HS CHRISTIE; Protocol Stop: 10/13/19 20:59 Last Admin: 08/31/19 20:44 Dose: 25 mg Zolpidem Tartrate (Ambien) 5 mg PO HS PRN PRN Reason: Insomnia Stop: 02/03/20 21:55 General: demented HEENT: NC/AT, PERRLA, EOMI, anicteric sclerae, throat clear Neck: Supple, No JVD, No thyromegaly, +2 carotid pulse wo bruit, No LAD Cardiovascular: Normal S1, Normal S2, without murmur Abdomen: non-tender, non-distended Extremities: clear Neurological: no change Internal Medicine Assmt/Plan - Assessment Assessment: 1.HYPERLIPIDEMIA. 2.COPD. 3.DJD. 4.PSYCHSIS - Plan Plan: CONTINUE ON CURRENT MEDICATION AND DIET. Nutritional Asmnt/Malnutr-PDOC - Dietary Evaluation Malnutrition Findings (Please click <Entered> for more info): Nutritional Asmnt/Malnutrition Start: 08/18/19 15: 26 Text: Status: Complete Freq: Protocol: Document 08/18/19 15:26 KITA (Rec: 08/18/19 15:30 KITA [id number]) Nutritional Asmnt/Malnutrition Patient General Information Nutritional Screening Low Risk Diagnosis Psychosis Pertinent Medical Hx/Surgical Hx Hyperlipidemia, COPD, DJD, Psychosis Subjective Information Pt is a 64-year-old female admitted on 08/08 d/t psychosis. Pt has had poor PO intake since admit date (08/13) , eating 0-25-80% meals, with about 50% refusal to eat or pt asleep. Visited pt today at 3pm, pt fast asleep. Spoke with Nurse donchanelle concerning pt PO intake, recommended letting the MD know about the continued poor intake. Nurse stated pt is very paranoid and has been refusing everything. Left an Ensure with nurse to offer and encourage once pt wakes up. Will follow up tomorrow to see how pt tolerated the supplement. Recommend weight check as pt has poor PO intake >5 days. Anthropometrics HT: 55 WT: 155 LB (70.45 kg) BMI: 25.85 (Overweight) GI/ Skin Integrity GI: WNL, Soft, Flat, Non- tender BM: Not Noted I/O: 480/Not Noted Skin: WNL, Intact Dallin: 21 Diet Order: Regular Estimated Energy Needs: ( Geriatric, CBW) 7132-2059 kcals (25-30 kcals/ kg) 70-85g Pro (1.0-1.2 g/kg) 8719-1563 ml (25-30 ml/kg) Current Diet Order/ Nutrition Support Regular Pertinent Medications Maalox (PRN), Lipitor, Colace Pertinent Labs 08/12: A1c 5.1% Nutritional Hx/Data Height 1.65 m Height (Calculated Centimeters) 165.1 Current Weight (lbs) 70.307 kg Weight (Calculated Kilograms) 70.3 Weight (Calculated Grams) 67991.8 [place] Body Weight 125 LB (56.82 kg) % [place] Body Weight 124 Body Mass Index (BMI) 25.7 Weight Status Overweight GI Symptoms Last BM Not Noted Skin Integrity/Comment: Skin: WNL, Intact Dallin: 21 Current %PO Negligible < 25% Estimated Nutritional Goals BEE in Kcals: Using Current wt Calories/Kcals/Kg 25-30 Kcals Calculated 1760- 2100 Protein: Using Current wt Protein g/k.0-1.2 Protein Calculated 70-85 Fluid: ml 5715-0000 ml (25-30 ml/kg Nutritional Problem 1. Problem Problem Poor PO intake Etiology r/t possible psychosis/poor appetite Signs/Symptoms: aeb PO intake <25% meals. Malnutrition Related to Morbid Obesity Malnutrition related to morbid obesity No Intervention/Recommendation Comments 1. Continue Regular diet as tolerated. 2. RN to encourage improved PO intake. 3. Weight check. Expected Outcomes/Goals Expected Outcomes/Goals 1. PO intake to meet 75% of estimated nutritional needs. 2. Monitor PO intake, wt, nutrition related labs, and skin integrity. 3. F/U as high risk in 2-3 days, 08/20-08/21
[2019-09-01] MEDS: Atorvastatin Calcium 10 MG TAB PO SCH (20:20)
--- NOTE | 2019-09-02 14:36 | Internal Medicine Prog Note ---
Internal Medicine Subjective - Subjective Service Date: 09/02/19 Patient seen and examined:: without staff (SHE STILL NO EATING WELL) Patient is:: awake, non-verbal, in bed, confused Per staff patient has:: no adverse event Internal Medicine Objective - Physical Exam Vitals and I&O: Vital Signs Temp 0 F 09/02/19 05:50 Pulse 70 09/01/19 20:37 Resp 19 09/02/19 08:00 BP 101/59 09/01/19 20:37 Pulse Ox 94 09/01/19 20:37 Intake & Output 09/01/19 09/02/19 09/02/19 18:59 06:59 18:59 Intake Total 700 120 Balance 700 120 Intake: Oral 700 120 Other: # Voids 3 # Bowel Movements 0 Active Medications: Current Medications Al Hydrox/Mg Hydrox/Simethicone (Maalox) 30 ml PO Q6H PRN PRN Reason: GI DISTRESS Stop: 10/12/19 21:27 Atorvastatin Calcium (Lipitor) 10 mg PO HS CHRISTIE; Protocol Stop: 10/13/19 20:59 Last Admin: 09/01/19 20:20 Dose: 10 mg Docusate Sodium (Colace) 250 mg PO DAILY CHRISTIE Stop: 10/13/19 08:59 Last Admin: 09/02/19 08:51 Dose: Not Given Haloperidol (Haldol) 5 mg PO BID CHRISTIE; Protocol Stop: 10/28/19 08:59 Last Admin: 09/02/19 08:58 Dose: 5 mg Haloperidol Lactate (Haldol) 5 mg IM BID PRN PRN Reason: Agitation Stop: 10/26/19 10:22 Lorazepam (Ativan) 0.5 mg PO Q4HR PRN; Protocol PRN Reason: Anxiety Stop: 09/12/19 21:55 Lorazepam (Ativan) 0.5 mg PO HS CHRISTIE; Protocol Stop: 10/13/19 20:59 Last Admin: 09/01/19 20:20 Dose: 0.5 mg Trazodone HCl (Desyrel) 25 mg PO HS CHRISTIE; Protocol Stop: 10/13/19 20:59 Last Admin: 09/01/19 20:20 Dose: 25 mg Zolpidem Tartrate (Ambien) 5 mg PO HS PRN PRN Reason: Insomnia Stop: 02/03/20 21:55 General: demented HEENT: NC/AT, PERRLA, EOMI, anicteric sclerae, throat clear Neck: Supple, No JVD, No thyromegaly, +2 carotid pulse wo bruit, No LAD Cardiovascular: Normal S1, Normal S2, without murmur Abdomen: non-tender, non-distended Extremities: clear Neurological: no change Internal Medicine Assmt/Plan - Assessment Assessment: 1.HYPERLIPIDEMIA. 2.COPD. 3.DJD. 4.PSYCHOSIS - Plan Plan: CONTINUE ON CURRENT MEDICATION AND DIET. Nutritional Asmnt/Malnutr-PDOC - Dietary Evaluation Malnutrition Findings (Please click <Entered> for more info): Nutritional Asmnt/Malnutrition Start: 08/18/19 15: 26 Text: Status: Complete Freq: Protocol: Document 08/18/19 15:26 KITA (Rec: 08/18/19 15:30 KITA [id number]) Nutritional Asmnt/Malnutrition Patient General Information Nutritional Screening Low Risk Diagnosis Psychosis Pertinent Medical Hx/Surgical Hx Hyperlipidemia, COPD, DJD, Psychosis Subjective Information Pt is a 64-year-old female admitted on 08/08 d/t psychosis. Pt has had poor PO intake since admit date (08/13) , eating 0-25-80% meals, with about 50% refusal to eat or pt asleep. Visited pt today at 3pm, pt fast asleep. Spoke with Nurse annemarie concerning pt PO intake, recommended letting the MD know about the continued poor intake. Nurse stated pt is very paranoid and has been refusing everything. Left an Ensure with nurse to offer and encourage once pt wakes up. Will follow up tomorrow to see how pt tolerated the supplement. Recommend weight check as pt has poor PO intake >5 days. Anthropometrics HT: 55 WT: 155 LB (70.45 kg) BMI: 25.85 (Overweight) GI/ Skin Integrity GI: WNL, Soft, Flat, Non- tender BM: Not Noted I/O: 480/Not Noted Skin: WNL, Intact Dallin: 21 Diet Order: Regular Estimated Energy Needs: ( Geriatric, CBW) 0670-5673 kcals (25-30 kcals/ kg) 70-85g Pro (1.0-1.2 g/kg) 3116-2099 ml (25-30 ml/kg) Current Diet Order/ Nutrition Support Regular Pertinent Medications Maalox (PRN), Lipitor, Colace Pertinent Labs 08/12: A1c 5.1% Nutritional Hx/Data Height 1.65 m Height (Calculated Centimeters) 165.1 Current Weight (lbs) 70.307 kg Weight (Calculated Kilograms) 70.3 Weight (Calculated Grams) 35166.8 [place] Body Weight 125 LB (56.82 kg) % [place] Body Weight 124 Body Mass Index (BMI) 25.7 Weight Status Overweight GI Symptoms Last BM Not Noted Skin Integrity/Comment: Skin: WNL, Intact Dallin: 21 Current %PO Negligible < 25% Estimated Nutritional Goals BEE in Kcals: Using Current wt Calories/Kcals/Kg 25-30 Kcals Calculated 1760- 2100 Protein: Using Current wt Protein g/k.0-1.2 Protein Calculated 70-85 Fluid: ml 4017-2636 ml (25-30 ml/kg Nutritional Problem 1. Problem Problem Poor PO intake Etiology r/t possible psychosis/poor appetite Signs/Symptoms: aeb PO intake <25% meals. Malnutrition Related to Morbid Obesity Malnutrition related to morbid obesity No Intervention/Recommendation Comments 1. Continue Regular diet as tolerated. 2. RN to encourage improved PO intake. 3. Weight check. Expected Outcomes/Goals Expected Outcomes/Goals 1. PO intake to meet 75% of estimated nutritional needs. 2. Monitor PO intake, wt, nutrition related labs, and skin integrity. 3. F/U as high risk in 2-3 days, 08/20-08/21
[2019-09-02] MEDS: Atorvastatin Calcium 10 MG TAB PO SCH (20:52)
[2019-09-03] MEDS: Atorvastatin Calcium 10 MG TAB PO SCH (20:27)
--- NOTE | 2019-09-03 20:36 | Internal Medicine Prog Note ---
Internal Medicine Subjective - Subjective Service Date: 09/03/19 Patient seen and examined:: without staff (SHE IS EATING BETTER) Patient is:: awake, non-verbal, in bed, confused Per staff patient has:: no adverse event Internal Medicine Objective - Physical Exam Vitals and I&O: Vital Signs Temp 98 F 09/02/19 20:00 Pulse 60 09/02/19 20:00 Resp 19 09/03/19 08:00 BP 102/63 09/02/19 20:00 Pulse Ox 96 09/02/19 20:00 Intake & Output 09/03/19 09/03/19 09/04/19 06:59 18:59 06:59 Intake Total 120 860 Balance 120 860 Intake: Oral 120 860 Other: # Voids 2 4 # Bowel Movements 0 Active Medications: Current Medications Al Hydrox/Mg Hydrox/Simethicone (Maalox) 30 ml PO Q6H PRN PRN Reason: GI DISTRESS Stop: 10/12/19 21:27 Atorvastatin Calcium (Lipitor) 10 mg PO HS CHRISTIE; Protocol Stop: 10/13/19 20:59 Last Admin: 09/03/19 20:27 Dose: 10 mg Docusate Sodium (Colace) 250 mg PO DAILY CHRISTIE Stop: 10/13/19 08:59 Last Admin: 09/03/19 08:39 Dose: Not Given Haloperidol (Haldol) 5 mg PO BID CHRISTIE; Protocol Stop: 10/28/19 08:59 Last Admin: 09/03/19 16:34 Dose: 5 mg Haloperidol Decanoate (Haldol Dec) 50 mg IM QMONTH CHRISTIE; Protocol Stop: 11/02/19 13:59 Last Admin: 09/03/19 14:29 Dose: 50 mg Haloperidol Lactate (Haldol) 5 mg IM BID PRN PRN Reason: Agitation Stop: 10/26/19 10:22 Lorazepam (Ativan) 0.5 mg PO Q4HR PRN; Protocol PRN Reason: Anxiety Stop: 09/12/19 21:55 Lorazepam (Ativan) 0.5 mg PO HS CHRISTIE; Protocol Stop: 10/13/19 20:59 Last Admin: 09/03/19 20:27 Dose: 0.5 mg Trazodone HCl (Desyrel) 25 mg PO HS CHRISTIE; Protocol Stop: 10/13/19 20:59 Last Admin: 09/03/19 20:28 Dose: 25 mg Zolpidem Tartrate (Ambien) 5 mg PO HS PRN PRN Reason: Insomnia Stop: 10/12/19 21:55 General: demented HEENT: NC/AT, PERRLA, EOMI, anicteric sclerae, throat clear Neck: Supple, No JVD, No thyromegaly, +2 carotid pulse wo bruit, No LAD Cardiovascular: Normal S1, Normal S2, without murmur Abdomen: non-tender, non-distended Extremities: clear Neurological: no change Internal Medicine Assmt/Plan - Assessment Assessment: 1.HYPERLIPIDEMIA. 2.COPD. 3.DJD. 4.PSYCHOSIS - Plan Plan: CONTINUE ON CURRENT MEDICATION AND DIET. Nutritional Asmnt/Malnutr-PDOC - Dietary Evaluation Malnutrition Findings (Please click <Entered> for more info): Nutritional Asmnt/Malnutrition Start: 08/18/19 15: 26 Text: Status: Complete Freq: Protocol: Document 08/18/19 15:26 KITA (Rec: 08/18/19 15:30 KITA [id number]) Nutritional Asmnt/Malnutrition Patient General Information Nutritional Screening Low Risk Diagnosis Psychosis Pertinent Medical Hx/Surgical Hx Hyperlipidemia, COPD, DJD, Psychosis Subjective Information Pt is a 64-year-old female admitted on 08/08 d/t psychosis. Pt has had poor PO intake since admit date (08/13) , eating 0-25-80% meals, with about 50% refusal to eat or pt asleep. Visited pt today at 3pm, pt fast asleep. Spoke with Nurse donchanelle concerning pt PO intake, recommended letting the MD know about the continued poor intake. Nurse stated pt is very paranoid and has been refusing everything. Left an Ensure with nurse to offer and encourage once pt wakes up. Will follow up tomorrow to see how pt tolerated the supplement. Recommend weight check as pt has poor PO intake >5 days. Anthropometrics HT: 55 WT: 155 LB (70.45 kg) BMI: 25.85 (Overweight) GI/ Skin Integrity GI: WNL, Soft, Flat, Non- tender BM: Not Noted I/O: 480/Not Noted Skin: WNL, Intact Daliln: 21 Diet Order: Regular Estimated Energy Needs: ( Geriatric, CBW) 2540-2696 kcals (25-30 kcals/ kg) 70-85g Pro (1.0-1.2 g/kg) 5873-7650 ml (25-30 ml/kg) Current Diet Order/ Nutrition Support Regular Pertinent Medications Maalox (PRN), Lipitor, Colace Pertinent Labs 08/12: A1c 5.1% Nutritional Hx/Data Height 1.65 m Height (Calculated Centimeters) 165.1 Current Weight (lbs) 70.307 kg Weight (Calculated Kilograms) 70.3 Weight (Calculated Grams) 83920.8 [place] Body Weight 125 LB (56.82 kg) % [place] Body Weight 124 Body Mass Index (BMI) 25.7 Weight Status Overweight GI Symptoms Last BM Not Noted Skin Integrity/Comment: Skin: WNL, Intact Dallin: 21 Current %PO Negligible < 25% Estimated Nutritional Goals BEE in Kcals: Using Current wt Calories/Kcals/Kg 25-30 Kcals Calculated 1760- 2100 Protein: Using Current wt Protein g/k.0-1.2 Protein Calculated 70-85 Fluid: ml 4353-3927 ml (25-30 ml/kg Nutritional Problem 1. Problem Problem Poor PO intake Etiology r/t possible psychosis/poor appetite Signs/Symptoms: aeb PO intake <25% meals. Malnutrition Related to Morbid Obesity Malnutrition related to morbid obesity No Intervention/Recommendation Comments 1. Continue Regular diet as tolerated. 2. RN to encourage improved PO intake. 3. Weight check. Expected Outcomes/Goals Expected Outcomes/Goals 1. PO intake to meet 75% of estimated nutritional needs. 2. Monitor PO intake, wt, nutrition related labs, and skin integrity. 3. F/U as high risk in 2-3 days, 08/20-08/21
--- NOTE | 2019-09-04 20:16 | Internal Medicine Prog Note ---
Internal Medicine Subjective - Subjective Service Date: 09/04/19 Patient seen and examined:: without staff (SHE IS DOING BETTER) Patient is:: awake, non-verbal, in bed, confused Per staff patient has:: no adverse event Internal Medicine Objective - Physical Exam Vitals and I&O: Vital Signs Temp 98 F 09/02/19 20:00 Pulse 60 09/02/19 20:00 Resp 18 09/04/19 08:00 BP 102/63 09/02/19 20:00 Pulse Ox 96 09/02/19 20:00 Intake & Output 09/04/19 09/04/19 09/05/19 06:59 18:59 06:59 Intake Total 120 1200 Balance 120 1200 Intake: Oral 120 1200 Other: # Voids 3 # Bowel Movements 1 Active Medications: Current Medications Al Hydrox/Mg Hydrox/Simethicone (Maalox) 30 ml PO Q6H PRN PRN Reason: GI DISTRESS Stop: 10/12/19 21:27 Atorvastatin Calcium (Lipitor) 10 mg PO HS CHRISTIE; Protocol Stop: 10/13/19 20:59 Last Admin: 09/03/19 20:27 Dose: 10 mg Docusate Sodium (Colace) 250 mg PO DAILY CHRISTIE Stop: 10/13/19 08:59 Last Admin: 09/04/19 08:07 Dose: Not Given Haloperidol (Haldol) 5 mg PO BID CHRISTIE; Protocol Stop: 10/28/19 08:59 Last Admin: 09/04/19 16:33 Dose: 5 mg Haloperidol Decanoate (Haldol Dec) 50 mg IM QMONTH CHRISTIE; Protocol Stop: 11/02/19 13:59 Last Admin: 09/03/19 14:29 Dose: 50 mg Haloperidol Lactate (Haldol) 5 mg IM BID PRN PRN Reason: Agitation Stop: 10/26/19 10:22 Lorazepam (Ativan) 0.5 mg PO Q4HR PRN; Protocol PRN Reason: Anxiety Stop: 09/12/19 21:55 Lorazepam (Ativan) 0.5 mg PO HS CHRISTIE; Protocol Stop: 10/13/19 20:59 Last Admin: 09/03/19 20:27 Dose: 0.5 mg Trazodone HCl (Desyrel) 25 mg PO HS CHRISTIE; Protocol Stop: 10/13/19 20:59 Last Admin: 09/03/19 20:28 Dose: 25 mg Zolpidem Tartrate (Ambien) 5 mg PO HS PRN PRN Reason: Insomnia Stop: 10/12/19 21:55 General: demented HEENT: NC/AT, PERRLA, EOMI, anicteric sclerae, throat clear Neck: Supple, No JVD, No thyromegaly, +2 carotid pulse wo bruit, No LAD Cardiovascular: Normal S1, Normal S2, without murmur Abdomen: non-tender, non-distended Extremities: clear Neurological: no change Internal Medicine Assmt/Plan - Assessment Assessment: 1.HYPERLIPIDEMIA. 2.COPD. 3.DJD. 4.PSYCHOSIS - Plan Plan: CONTINUE ON CURRENT MEDICATION AND DIET. Nutritional Asmnt/Malnutr-PDOC - Dietary Evaluation Malnutrition Findings (Please click <Entered> for more info): Nutritional Asmnt/Malnutrition Start: 08/18/19 15: 26 Text: Status: Complete Freq: Protocol: Document 08/18/19 15:26 KITA (Rec: 08/18/19 15:30 KITA [id number]) Nutritional Asmnt/Malnutrition Patient General Information Nutritional Screening Low Risk Diagnosis Psychosis Pertinent Medical Hx/Surgical Hx Hyperlipidemia, COPD, DJD, Psychosis Subjective Information Pt is a 64-year-old female admitted on 08/08 d/t psychosis. Pt has had poor PO intake since admit date (08/13) , eating 0-25-80% meals, with about 50% refusal to eat or pt asleep. Visited pt today at 3pm, pt fast asleep. Spoke with Nurse donits concerning pt PO intake, recommended letting the MD know about the continued poor intake. Nurse stated pt is very paranoid and has been refusing everything. Left an Ensure with nurse to offer and encourage once pt wakes up. Will follow up tomorrow to see how pt tolerated the supplement. Recommend weight check as pt has poor PO intake >5 days. Anthropometrics HT: 55 WT: 155 LB (70.45 kg) BMI: 25.85 (Overweight) GI/ Skin Integrity GI: WNL, Soft, Flat, Non- tender BM: Not Noted I/O: 480/Not Noted Skin: WNL, Intact Dallin: 21 Diet Order: Regular Estimated Energy Needs: ( Geriatric, CBW) 0479-5877 kcals (25-30 kcals/ kg) 70-85g Pro (1.0-1.2 g/kg) 6461-8989 ml (25-30 ml/kg) Current Diet Order/ Nutrition Support Regular Pertinent Medications Maalox (PRN), Lipitor, Colace Pertinent Labs 08/12: A1c 5.1% Nutritional Hx/Data Height 1.65 m Height (Calculated Centimeters) 165.1 Current Weight (lbs) 70.307 kg Weight (Calculated Kilograms) 70.3 Weight (Calculated Grams) 34629.8 [place] Body Weight 125 LB (56.82 kg) % [place] Body Weight 124 Body Mass Index (BMI) 25.7 Weight Status Overweight GI Symptoms Last BM Not Noted Skin Integrity/Comment: Skin: WNL, Intact Dallin: 21 Current %PO Negligible < 25% Estimated Nutritional Goals BEE in Kcals: Using Current wt Calories/Kcals/Kg 25-30 Kcals Calculated 1760- 2100 Protein: Using Current wt Protein g/k.0-1.2 Protein Calculated 70-85 Fluid: ml 3741-8294 ml (25-30 ml/kg Nutritional Problem 1. Problem Problem Poor PO intake Etiology r/t possible psychosis/poor appetite Signs/Symptoms: aeb PO intake <25% meals. Malnutrition Related to Morbid Obesity Malnutrition related to morbid obesity No Intervention/Recommendation Comments 1. Continue Regular diet as tolerated. 2. RN to encourage improved PO intake. 3. Weight check. Expected Outcomes/Goals Expected Outcomes/Goals 1. PO intake to meet 75% of estimated nutritional needs. 2. Monitor PO intake, wt, nutrition related labs, and skin integrity. 3. F/U as high risk in 2-3 days, 08/20-08/21
[2019-09-04] MEDS: Atorvastatin Calcium 10 MG TAB PO SCH (20:54)
--- NOTE | 2019-09-05 21:04 | Internal Medicine Prog Note ---
Internal Medicine Subjective - Subjective Service Date: 09/05/19 Patient seen and examined:: without staff (SHE IS DOING BETTER) Patient is:: awake, non-verbal, in bed, confused Per staff patient has:: no adverse event Internal Medicine Objective - Physical Exam Vitals and I&O: Vital Signs Temp 97.8 F 09/05/19 14:10 Pulse 77 09/05/19 14:10 Resp 18 09/05/19 14:10 BP 88/58 09/05/19 14:10 Pulse Ox 97 09/05/19 14:10 Intake & Output 09/05/19 09/05/19 09/06/19 06:59 18:59 06:59 Intake Total 240 Balance 240 Intake: Oral 240 Other: # Voids 1 2 # Bowel Movements 0 0 Active Medications: Current Medications Al Hydrox/Mg Hydrox/Simethicone (Maalox) 30 ml PO Q6H PRN PRN Reason: GI DISTRESS Stop: 10/12/19 21:27 Atorvastatin Calcium (Lipitor) 10 mg PO HS CHRISTIE; Protocol Stop: 10/13/19 20:59 Last Admin: 09/04/19 20:54 Dose: 10 mg Docusate Sodium (Colace) 250 mg PO DAILY CHRISTIE Stop: 10/13/19 08:59 Last Admin: 09/05/19 08:06 Dose: Not Given Haloperidol (Haldol) 5 mg PO BID CHRISTIE; Protocol Stop: 10/28/19 08:59 Last Admin: 09/05/19 16:46 Dose: 5 mg Haloperidol Decanoate (Haldol Dec) 50 mg IM QMONTH CHRISTIE; Protocol Stop: 11/02/19 13:59 Last Admin: 09/03/19 14:29 Dose: 50 mg Haloperidol Lactate (Haldol) 5 mg IM BID PRN PRN Reason: Agitation Stop: 10/26/19 10:22 Lorazepam (Ativan) 0.5 mg PO Q4HR PRN; Protocol PRN Reason: Anxiety Stop: 09/12/19 21:55 Lorazepam (Ativan) 0.5 mg PO HS CHRISTIE; Protocol Stop: 10/13/19 20:59 Last Admin: 09/04/19 20:55 Dose: 0.5 mg Trazodone HCl (Desyrel) 25 mg PO HS CHRISTIE; Protocol Stop: 10/13/19 20:59 Last Admin: 09/04/19 20:54 Dose: 25 mg Zolpidem Tartrate (Ambien) 5 mg PO HS PRN PRN Reason: Insomnia Stop: 10/12/19 21:55 General: demented HEENT: NC/AT, PERRLA, EOMI, anicteric sclerae, throat clear Neck: Supple, No JVD, No thyromegaly, +2 carotid pulse wo bruit, No LAD Cardiovascular: Normal S1, Normal S2, without murmur Abdomen: non-tender, non-distended Extremities: clear Neurological: no change Internal Medicine Assmt/Plan - Assessment Assessment: 1.HYPERLIPIDEMIA. 2.COPD. 3.DJD. 4.PSYCHOSIS - Plan Plan: CONTINUE ON CURRENT MEDICATION AND DIET. Nutritional Asmnt/Malnutr-PDOC - Dietary Evaluation Malnutrition Findings (Please click <Entered> for more info): Nutritional Asmnt/Malnutrition Start: 08/18/19 15: 26 Text: Status: Complete Freq: Protocol: Document 08/18/19 15:26 KITA (Rec: 08/18/19 15:30 KITA [id number]) Nutritional Asmnt/Malnutrition Patient General Information Nutritional Screening Low Risk Diagnosis Psychosis Pertinent Medical Hx/Surgical Hx Hyperlipidemia, COPD, DJD, Psychosis Subjective Information Pt is a 64-year-old female admitted on 08/08 d/t psychosis. Pt has had poor PO intake since admit date (08/13) , eating 0-25-80% meals, with about 50% refusal to eat or pt asleep. Visited pt today at 3pm, pt fast asleep. Spoke with Nurse donits concerning pt PO intake, recommended letting the MD know about the continued poor intake. Nurse stated pt is very paranoid and has been refusing everything. Left an Ensure with nurse to offer and encourage once pt wakes up. Will follow up tomorrow to see how pt tolerated the supplement. Recommend weight check as pt has poor PO intake >5 days. Anthropometrics HT: 55 WT: 155 LB (70.45 kg) BMI: 25.85 (Overweight) GI/ Skin Integrity GI: WNL, Soft, Flat, Non- tender BM: Not Noted I/O: 480/Not Noted Skin: WNL, Intact Dallin: 21 Diet Order: Regular Estimated Energy Needs: ( Geriatric, CBW) 6186-2013 kcals (25-30 kcals/ kg) 70-85g Pro (1.0-1.2 g/kg) 5927-6335 ml (25-30 ml/kg) Current Diet Order/ Nutrition Support Regular Pertinent Medications Maalox (PRN), Lipitor, Colace Pertinent Labs 08/12: A1c 5.1% Nutritional Hx/Data Height 1.65 m Height (Calculated Centimeters) 165.1 Current Weight (lbs) 70.307 kg Weight (Calculated Kilograms) 70.3 Weight (Calculated Grams) 80517.8 [place] Body Weight 125 LB (56.82 kg) % [place] Body Weight 124 Body Mass Index (BMI) 25.7 Weight Status Overweight GI Symptoms Last BM Not Noted Skin Integrity/Comment: Skin: WNL, Intact Dallin: 21 Current %PO Negligible < 25% Estimated Nutritional Goals BEE in Kcals: Using Current wt Calories/Kcals/Kg 25-30 Kcals Calculated 1760- 2100 Protein: Using Current wt Protein g/k.0-1.2 Protein Calculated 70-85 Fluid: ml 3246-2636 ml (25-30 ml/kg Nutritional Problem 1. Problem Problem Poor PO intake Etiology r/t possible psychosis/poor appetite Signs/Symptoms: aeb PO intake <25% meals. Malnutrition Related to Morbid Obesity Malnutrition related to morbid obesity No Intervention/Recommendation Comments 1. Continue Regular diet as tolerated. 2. RN to encourage improved PO intake. 3. Weight check. Expected Outcomes/Goals Expected Outcomes/Goals 1. PO intake to meet 75% of estimated nutritional needs. 2. Monitor PO intake, wt, nutrition related labs, and skin integrity. 3. F/U as high risk in 2-3 days, 08/20-08/21
[2019-09-05] MEDS: Atorvastatin Calcium 10 MG TAB PO SCH (21:07)
--- NOTE | 2019-09-06 19:11 | Internal Medicine Prog Note ---
Internal Medicine Subjective - Subjective Service Date: 09/06/19 Patient seen and examined:: without staff (SHE IS DOING BETTER) Patient is:: awake, non-verbal, in bed, confused Per staff patient has:: no adverse event Internal Medicine Objective - Physical Exam Vitals and I&O: Vital Signs Temp 96 F 09/06/19 14:00 Pulse 69 09/06/19 14:00 Resp 18 09/06/19 14:00 BP 83/51 09/06/19 14:00 Pulse Ox 96 09/06/19 14:00 Intake & Output 09/06/19 09/06/19 09/07/19 06:59 18:59 06:59 Other: # Voids 1 3 # Bowel Movements 0 Active Medications: Current Medications Al Hydrox/Mg Hydrox/Simethicone (Maalox) 30 ml PO Q6H PRN PRN Reason: GI DISTRESS Stop: 10/12/19 21:27 Atorvastatin Calcium (Lipitor) 10 mg PO HS CHRISTIE; Protocol Stop: 10/13/19 20:59 Last Admin: 09/05/19 21:07 Dose: 10 mg Docusate Sodium (Colace) 250 mg PO DAILY CHRISTIE Stop: 10/13/19 08:59 Last Admin: 09/06/19 08:05 Dose: Not Given Haloperidol (Haldol) 5 mg PO BID CHRISTIE; Protocol Stop: 10/28/19 08:59 Last Admin: 09/06/19 16:28 Dose: 5 mg Haloperidol Decanoate (Haldol Dec) 50 mg IM QMONTH CHRISTIE; Protocol Stop: 11/02/19 13:59 Last Admin: 09/03/19 14:29 Dose: 50 mg Haloperidol Lactate (Haldol) 5 mg IM BID PRN PRN Reason: Agitation Stop: 10/26/19 10:22 Lorazepam (Ativan) 0.5 mg PO Q4HR PRN; Protocol PRN Reason: Anxiety Stop: 09/12/19 21:55 Trazodone HCl (Desyrel) 25 mg PO HS CHRISTIE; Protocol Stop: 10/13/19 20:59 Last Admin: 09/05/19 21:08 Dose: 25 mg Zolpidem Tartrate (Ambien) 5 mg PO HS PRN PRN Reason: Insomnia Stop: 10/12/19 21:55 General: demented HEENT: NC/AT, PERRLA, EOMI, anicteric sclerae, throat clear Neck: Supple, No JVD, No thyromegaly, +2 carotid pulse wo bruit, No LAD Cardiovascular: Normal S1, Normal S2, without murmur Abdomen: non-tender, non-distended Extremities: clear Neurological: no change Internal Medicine Assmt/Plan - Assessment Assessment: 1.HYPERLIPIDEMIA. 2.COPD. 3.DJD. 4.PSYCHOSIS - Plan Plan: CONTINUE ON CURRENT MEDICATION AND DIET. Nutritional Asmnt/Malnutr-PDOC - Dietary Evaluation Malnutrition Findings (Please click <Entered> for more info): Nutritional Asmnt/Malnutrition Start: 08/18/19 15: 26 Text: Status: Complete Freq: Protocol: Document 08/18/19 15:26 KITA (Rec: 08/18/19 15:30 KITA [id number]) Nutritional Asmnt/Malnutrition Patient General Information Nutritional Screening Low Risk Diagnosis Psychosis Pertinent Medical Hx/Surgical Hx Hyperlipidemia, COPD, DJD, Psychosis Subjective Information Pt is a 64-year-old female admitted on 08/08 d/t psychosis. Pt has had poor PO intake since admit date (08/13) , eating 0-25-80% meals, with about 50% refusal to eat or pt asleep. Visited pt today at 3pm, pt fast asleep. Spoke with Nurse donits concerning pt PO intake, recommended letting the MD know about the continued poor intake. Nurse stated pt is very paranoid and has been refusing everything. Left an Ensure with nurse to offer and encourage once pt wakes up. Will follow up tomorrow to see how pt tolerated the supplement. Recommend weight check as pt has poor PO intake >5 days. Anthropometrics HT: 55 WT: 155 LB (70.45 kg) BMI: 25.85 (Overweight) GI/ Skin Integrity GI: WNL, Soft, Flat, Non- tender BM: Not Noted I/O: 480/Not Noted Skin: WNL, Intact Dallin: 21 Diet Order: Regular Estimated Energy Needs: ( Geriatric, CBW) 8122-2298 kcals (25-30 kcals/ kg) 70-85g Pro (1.0-1.2 g/kg) 1569-2731 ml (25-30 ml/kg) Current Diet Order/ Nutrition Support Regular Pertinent Medications Maalox (PRN), Lipitor, Colace Pertinent Labs 08/12: A1c 5.1% Nutritional Hx/Data Height 1.65 m Height (Calculated Centimeters) 165.1 Current Weight (lbs) 70.307 kg Weight (Calculated Kilograms) 70.3 Weight (Calculated Grams) 37238.8 [place] Body Weight 125 LB (56.82 kg) % [place] Body Weight 124 Body Mass Index (BMI) 25.7 Weight Status Overweight GI Symptoms Last BM Not Noted Skin Integrity/Comment: Skin: WNL, Intact Dallin: 21 Current %PO Negligible < 25% Estimated Nutritional Goals BEE in Kcals: Using Current wt Calories/Kcals/Kg 25-30 Kcals Calculated 1760- 2100 Protein: Using Current wt Protein g/k.0-1.2 Protein Calculated 70-85 Fluid: ml 2967-5277 ml (25-30 ml/kg Nutritional Problem 1. Problem Problem Poor PO intake Etiology r/t possible psychosis/poor appetite Signs/Symptoms: aeb PO intake <25% meals. Malnutrition Related to Morbid Obesity Malnutrition related to morbid obesity No Intervention/Recommendation Comments 1. Continue Regular diet as tolerated. 2. RN to encourage improved PO intake. 3. Weight check. Expected Outcomes/Goals Expected Outcomes/Goals 1. PO intake to meet 75% of estimated nutritional needs. 2. Monitor PO intake, wt, nutrition related labs, and skin integrity. 3. F/U as high risk in 2-3 days, 08/20-08/21
[2019-09-06] MEDS: Atorvastatin Calcium 10 MG TAB PO SCH (20:12)
--- NOTE | 2019-09-06 20:34 | Progress Notes ---
DATE: 09/03/2019 SUBJECTIVE: The patient continues to refuse to speak with me. Unable to really assess fully. She is more med compliant, still impulsive, unpredictable, noted to still be responding to internal stimuli, bizarre ideations. PLAN: We will continue to monitor plan to transition to a long-acting injectable. JOB# [id number]
--- NOTE | 2019-09-06 20:34 | Progress Notes ---
DATE: 09/01/2019 SUBJECTIVE: A 64-year-old female still refusing to speak with me today, agitated, can be combative, yelling. We are monitoring her closely. We will initiate a long-acting injectable ____ Haldol, ongoing safety concerns, very impulsive, unpredictable, disheveled, unkempt, internally preoccupied. We will continue inpatient monitoring. [facility]# [id number]
--- NOTE | 2019-09-06 20:34 | Progress Notes ---
DATE: 09/02/2019 Case was discussed with staff of the patient, reviewed records. Covering for Dr. Veras. This is a 64-year-old female who was admitted on 08/13/2019 with a history of schizophrenia, anxiety, came from [facility], also with a history of dementia, osteoarthritis, and hyperlipidemia. The patient is internally preoccupied, unable to make safe plan for self-care, unable to answer questions easily agitated. Continues to have episodes of yelling, screaming. She was changed to Haldol Decanoate and unable to answer questions and we will continue to work with the patient in group therapy, milieu therapy, adjust medication as needed. JOB# [id number]
--- NOTE | 2019-09-06 20:34 | Progress Notes ---
DATE: 09/04/2019 SUBJECTIVE: The patient is still yelling and screaming episodes. She is more med compliant, generally calmer, still refusing to talk to me. Currently on Haldol Decanoate. We will continue to monitor, likely approaching her baseline. We will confirm a safe disposition. [facility]# [id number]
--- NOTE | 2019-09-06 20:34 | Progress Notes ---
DATE: 08/30/2019 SUBJECTIVE: The patient is still aggressive towards staff, more med compliant, otherwise withdrawn, refusing to speak with me. Taking medications more willingly given there is an IM backup now. Still very impulsive, unpredictable, ongoing safety concerns, tolerant to medications thus far. JOB# [id number]
--- NOTE | 2019-09-06 20:34 | Progress Notes ---
DATE: 08/31/2019 SUBJECTIVE: On going to see the patient, she refuses to talk to me; only with the nurse. The patient all of a sudden lights up when the nurse starts talking about intramuscular injections, stating that she is eating enough food and is easily agitated; she was yelling and screaming to the point that I had to leave the room. We will continue dosing of Haldol. She just keeps to herself, very withdrawn, disheveled, unkempt. PLAN: We will continue to monitor, continue Haldol, transition to Haldol decanoate. JOB# [id number]
--- NOTE | 2019-09-06 20:35 | Progress Notes ---
DATE: SUBJECTIVE: The patient was seen and evaluated. The patient's chart reviewed. Current nursing staff reported the patient at times screams. Today on [id number]-harm evaluation, avoidant and refuses to talk. MENTAL STATUS EXAMINATION: Refusing and avoidant. ASSESSMENT AND PLAN: Due to the patient's refusal and psychotic behavior that resulting screaming and trying to hit staff and unable to form a safe plan. Reconciliation reviewed. Continue with Haldol 5 mg p.o. b.i.d. with Haldol deaconate every monthly, trazodone. JOB# [id number]
--- NOTE | 2019-09-06 22:44 | Progress Notes ---
DATE: 09/06/2019 SUBJECTIVE: The patient was seen and evaluated. The patient's chart reviewed. Covering for Dr. Hammond. Today on [id number] evaluation, the patient continues to refuse interview. Nursing staff also reported she continues to be disengaged, withdrawn, isolative . ASSESSMENT AND PLAN: Appeared to be aloof, minimally participated because of severe depression, unable to form a safe plan. We will continue with primary psychiatrist's treatment plan and goals to target the patient's ongoing psychotic symptoms with Haldol. JOB# [id number]
--- NOTE | 2019-09-07 18:40 | Internal Medicine Prog Note ---
Internal Medicine Subjective - Subjective Service Date: 09/07/19 Patient seen and examined:: without staff (SHE IS DOING BETTER) Patient is:: awake, non-verbal, in bed, confused Per staff patient has:: no adverse event Internal Medicine Objective - Physical Exam Vitals and I&O: Vital Signs Temp 98.8 F 09/07/19 14:49 Pulse 70 09/07/19 14:49 Resp 18 09/07/19 14:49 BP 102/64 09/07/19 14:49 Pulse Ox 98 09/07/19 14:49 Intake & Output 09/06/19 09/07/19 09/07/19 18:59 06:59 18:59 Intake Total 60 850 Balance 60 850 Intake: Oral 60 850 Other: # Voids 3 3 3 # Bowel Movements 0 0 0 Active Medications: Current Medications Al Hydrox/Mg Hydrox/Simethicone (Maalox) 30 ml PO Q6H PRN PRN Reason: GI DISTRESS Stop: 10/12/19 21:27 Atorvastatin Calcium (Lipitor) 10 mg PO HS CHRISTIE; Protocol Stop: 10/13/19 20:59 Last Admin: 09/06/19 20:12 Dose: 10 mg Docusate Sodium (Colace) 250 mg PO DAILY CHRISTIE Stop: 10/13/19 08:59 Last Admin: 09/07/19 08:00 Dose: Not Given Haloperidol (Haldol) 5 mg PO BID CHRISTIE; Protocol Stop: 10/28/19 08:59 Last Admin: 09/07/19 16:17 Dose: 5 mg Haloperidol Decanoate (Haldol Dec) 50 mg IM QMONTH CHRISTIE; Protocol Stop: 11/02/19 13:59 Last Admin: 09/03/19 14:29 Dose: 50 mg Haloperidol Lactate (Haldol) 5 mg IM BID PRN PRN Reason: Agitation Stop: 10/26/19 10:22 Lorazepam (Ativan) 0.5 mg PO Q4HR PRN; Protocol PRN Reason: Anxiety Stop: 09/12/19 21:55 Trazodone HCl (Desyrel) 25 mg PO HS CHRISTIE; Protocol Stop: 10/13/19 20:59 Last Admin: 09/06/19 20:11 Dose: 25 mg Zolpidem Tartrate (Ambien) 5 mg PO HS PRN PRN Reason: Insomnia Stop: 10/12/19 21:55 General: demented HEENT: NC/AT, PERRLA, EOMI, anicteric sclerae, throat clear Neck: Supple, No JVD, No thyromegaly, +2 carotid pulse wo bruit, No LAD Cardiovascular: Normal S1, Normal S2, without murmur Abdomen: non-tender, non-distended Extremities: clear Neurological: no change Internal Medicine Assmt/Plan - Assessment Assessment: 1.HYPERLIPIDEMIA. 2.COPD. 3.DJD. 4.PSYCHOSIS - Plan Plan: CONTINUE ON CURRENT MEDICATION AND DIET. Nutritional Asmnt/Malnutr-PDOC - Dietary Evaluation Malnutrition Findings (Please click <Entered> for more info): Nutritional Asmnt/Malnutrition Start: 08/18/19 15: 26 Text: Status: Complete Freq: Protocol: Document 08/18/19 15:26 KITA (Rec: 08/18/19 15:30 KITA [email or web address]) Nutritional Asmnt/Malnutrition Patient General Information Nutritional Screening Low Risk Diagnosis Psychosis Pertinent Medical Hx/Surgical Hx Hyperlipidemia, COPD, DJD, Psychosis Subjective Information Pt is a 64-year-old female admitted on 08/08 d/t psychosis. Pt has had poor PO intake since admit date (08/13) , eating 0-25-80% meals, with about 50% refusal to eat or pt asleep. Visited pt today at 3pm, pt fast asleep. Spoke with Nurse donits concerning pt PO intake, recommended letting the MD know about the continued poor intake. Nurse stated pt is very paranoid and has been refusing everything. Left an Ensure with nurse to offer and encourage once pt wakes up. Will follow up tomorrow to see how pt tolerated the supplement. Recommend weight check as pt has poor PO intake >5 days. Anthropometrics HT: 55 WT: 155 LB (70.45 kg) BMI: 25.85 (Overweight) GI/ Skin Integrity GI: WNL, Soft, Flat, Non- tender BM: Not Noted I/O: 480/Not Noted Skin: WNL, Intact Dallin: 21 Diet Order: Regular Estimated Energy Needs: ( Geriatric, CBW) 4947-9096 kcals (25-30 kcals/ kg) 70-85g Pro (1.0-1.2 g/kg) 6302-9239 ml (25-30 ml/kg) Current Diet Order/ Nutrition Support Regular Pertinent Medications Maalox (PRN), Lipitor, Colace Pertinent Labs 08/12: A1c 5.1% Nutritional Hx/Data Height 1.65 m Height (Calculated Centimeters) 165.1 Current Weight (lbs) 70.307 kg Weight (Calculated Kilograms) 70.3 Weight (Calculated Grams) 18549.8 [place] Body Weight 125 LB (56.82 kg) % [place] Body Weight 124 Body Mass Index (BMI) 25.7 Weight Status Overweight GI Symptoms Last BM Not Noted Skin Integrity/Comment: Skin: WNL, Intact D[place]: 21 Current %PO Negligible < 25% Estimated Nutritional Goals BEE in Kcals: Using Current wt Calories/Kcals/Kg 25-30 Kcals Calculated 1760- 2100 Protein: Using Current wt Protein g/k.0-1.2 Protein Calculated 70-85 Fluid: ml 6867-5483 ml (25-30 ml/kg Nutritional Problem 1. Problem Problem Poor PO intake Etiology r/t possible psychosis/poor appetite Signs/Symptoms: aeb PO intake <25% meals. Malnutrition Related to Morbid Obesity Malnutrition related to morbid obesity No Intervention/Recommendation Comments 1. Continue Regular diet as tolerated. 2. RN to encourage improved PO intake. 3. Weight check. Expected Outcomes/Goals Expected Outcomes/Goals 1. PO intake to meet 75% of estimated nutritional needs. 2. Monitor PO intake, wt, nutrition related labs, and skin integrity. 3. F/U as high risk in 2-3 days, 08/20-08/21
--- NOTE | 2019-09-07 19:59 | Discharge Summary ---
DATE OF DISCHARGE: 09/07/2019 HOSPITAL COURSE: A 64-year-old female with history of schizophrenia, conserved in [place], agitated, not able to really care for her at a lower level, needing inpatient psych. Refused medications for a long time. The [facility] took a long time to get back to us in regards to medicating her. Eventually, they did, which allowed to medicate her against her will. She was really paranoid when she got here, mostly keeps to self, withdrawn. Hospital course was followed with improvements, better med compliance. No side effects. Still mostly withdrawn, keeps to self, likely at baseline, but no longer agitated, no aggressive behaviors. CONDITION ON DISCHARGE: Improved. Mildly better ADLs, less withdrawn, more amenable to speaking with me. No agitation. No SI, no HI, no overt psychotic symptoms. DISCHARGE DIAGNOSIS: Schizophrenia. MEDICAL: Please see full H and P. PROGNOSIS: The patient remains treatment compliant. Prognosis will improve, otherwise guarded. [facility]# [id number]
[2019-09-07] MEDS: Atorvastatin Calcium 10 MG TAB PO SCH (20:47)
--- NOTE | 2019-09-08 09:37 | Progress Notes ---
DATE: 09/08/2019 SUBJECTIVE: The patient in the hospital, also left yesterday, has some delays in discharge. Plan is for the patient to discharge today. No SI, no HI. She seems to be at her baseline. Much calmer. JOB# [id number]
== END 2019-09-08 15:15 | DRG 885 ==
LOC: GERO 22:38
PROVIDERS: ADMIT Psychiatry & Neurology Psychiatry; ATTEND Psychiatry & Neurology Psychiatry
DX: F20.9 Schizophrenia, unspecified (principal); F29 Unspecified psychosis not due to a substance or known physiological condition; M19.90 Unspecified osteoarthritis, unspecified site; E78.5 Hyperlipidemia, unspecified; J44.9 Chronic obstructive pulmonary disease, unspecified; K21.9 Gastro-esophageal reflux disease without esophagitis; F03.90 Unspecified dementia, unspecified severity, without behavioral disturbance, psychotic disturbance, mood disturbance, and anxiety; G62.9 Polyneuropathy, unspecified; F17.210 Nicotine dependence, cigarettes, uncomplicated
CPT/HCPCS: 83036-90; J1630; J1631; J7051